=== PATIENT | female | born 1955 | race Two or more races ===

== ENCOUNTER → 2022-01-05 09:50 | Outpatient (BNVA) | payer MEDICARE, MEDICAID, SELFPAY | PROVIDERS: PCP Internal Medicine; Visit Provider Internal Medicine Rheumatology | DX: M79.7 Fibromyalgia (principal); R76.8 Other specified abnormal immunological findings in serum; M17.0 Bilateral primary osteoarthritis of knee; M47.816 Spondylosis without myelopathy or radiculopathy, lumbar region | CPT/HCPCS: 99212 ==

== ENCOUNTER → 2022-02-07 13:04 | Outpatient (BNVA) | payer MEDICARE, MEDICAID, SELFPAY | PROVIDERS: PCP Internal Medicine; Visit Provider Psychiatry & Neurology Neurology | DX: R25.1 Tremor, unspecified (principal); R41.3 Other amnesia; G47.33 Obstructive sleep apnea (adult) (pediatric); Z79.899 Other long term (current) drug therapy | CPT/HCPCS: 99202 ==

== ENCOUNTER 2023-04-17 14:48 | Outpatient (AMB) | payer MEDICARE, MEDICAID, SELFPAY ==
--- NOTE | 2023-04-17 15:17 | MHC.OFFVIS ---
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 Accompanied by: Self / Same As Patient Allergies ampicillin Allergy (Intermediate, Verified 04/17/23 15:30) hives carisoprodol [From Soma] Allergy (Intermediate, Verified 04/17/23 15:30) Hives chlorzoxazone [From Parafon Forte] Allergy (Intermediate, Verified 04/17/23 15:30) Nausea and Vomiting ciprofloxacin [From Cipro] Allergy (Intermediate, Verified 04/17/23 15:30) Rash codeine Allergy (Intermediate, Verified 04/17/23 15:30) Nausea and Vomiting diphenhydramine [From Benadryl] Allergy (Intermediate, Verified 04/17/23 15:30) rash erythromycin base Allergy (Intermediate, Verified 04/17/23 15:30) Nausea and Vomiting fexofenadine [From Katlyn] Allergy (Intermediate, Verified 04/17/23 15:30) Hives penicillin G Allergy (Intermediate, Verified 04/17/23 15:30) Rash ranitidine Allergy (Intermediate, Verified 04/17/23 15:30) Rash Sulfa (Sulfonamide Antibiotics) Allergy (Intermediate, Verified 04/17/23 15:30) hives tetracycline Allergy (Intermediate, Verified 04/17/23 15:30) Hives tolmetin [From Tolectin] Allergy (Intermediate, Verified 04/17/23 15:30) hives Medication List - Last Reconciled 04/17/23 by Norman Gallegos MD azelastine 2 sprays intranasal BID cholecalciferol (vitamin D3) 50 mcg PO DAILY estradiol 0.01%(0.1mg/gram) vaginal fluticasone propionate 50 mcg/actuation (Allergy Relief (fluticasone)) 2 sprays intranasal DAILY uvzltnvkjig-iqskrhasx-hkmvyvkx 100-62.5-25 mcg (Trelegy Ellipta) 1 inh inhalation DAILY gabapentin one tab twice a day and 1 1/2 tab at bedtime orally; hydroxyzine HCl 50 mg PO TID ipratropium-albuterol 20-100 mcg/actuation (Combivent Respimat) 1 puff inhalation Q6H PRN ketoconazole 2% 1 appl topical 2XW lisinopril 5 mg PO DAILY loratadine (Allergy Relief (loratadine)) 10 mg PO DAILY metformin 500 mg PO BID methylphenidate HCl ER (Concerta) 54 mg PO QAM montelukast (Singulair) 10 mg PO BEDTIME omeprazole 20 mg PO DAILY paroxetine HCl (Paxil) 40 mg PO DAILY propranolol 60 mg PO BID simvastatin 40 mg PO DAILY tizanidine 4 mg PO BID trazodone 50 - 150 mg PO BEDTIME PRN HPI HPI Comments History of Present Illness Details The patient returns today for evaluation of her fibromyalgia and osteoarthritis. She remains symptomatic with multiple areas of joint pain. These include the neck, shoulders, lower back (radiating from the buttocks down the legs), the knees, and the feet. She remains on gabapentin 600 mg taking 1 twice a day and 1 and 1/2 at night. She also takes paroxetine, trazodone and tizanidine at night. In spite of that she thinks she needs more pain medicine at night. She does admit to sometimes some sleepiness in the afternoon. There is intermittent swelling in the legs when she has a high salt meal. [facility] Medical History Anxiety Arachnoid cyst Depression Diabetes Lumbar spinal stenosis Neurogenic bladder Obesity (BMI 30-39.9) Obstructive sleep apnea Scoliosis Surgical History H/O laparoscopy Hx of tonsillectomy H/O hernia repair H/O tooth extraction H/O colonoscopy H/O: H/O brain surgery Family History Father Acute arthritis Mother Acute arthritis Brain tumor Vitamin B12 deficiency Father Heart attack Family/Other Brain tumor Cancer Social History Household Members Other:: lives alone Housing: Apartment Do you presently have visiting nurse or other home services: Yes (homemaker) Alcohol intake: never Patient Tobacco Use Status: Never used Tobacco e-Cigarette/Vaping Use: Never Used service: No Current occupational status: disabled Review of Systems Const Details: Low energy. Some weight gain this went summer. Negative for appetite change, fever, chills, malaise Card Details: Occasional ankle edema. Negative palpitations, edema and syncope Resp Details: Negative for SOB, cough and wheezing GI Details: Negative indigestion/heartburn, nausea, abdominal pain, bowel changes, diarrhea, constipation and bloody stool. Neuro Details: Some burning pain and numbness in the feet she attributes to neuropathy. Negative for epilepsy, palsy, stroke, changes in speech, and weakness Endo Details: Negative for polyuria and polydypsia Agusto/Lymph Details: Negative for excessive bruising or bleeding. Physical Exam Vital Signs: Last Vital Signs Temp 97 F 04/17/23 15:26 Pulse 80 04/17/23 15:26 BP 112/70 04/17/23 15:26 Pulse Ox 92 04/17/23 15:26 Oxygen Delivery Method Room Air 04/17/23 15:26 BMI result Body Mass Index 39.3 APPEARANCE: Patient in no acute distress EYES no redness, pupils equal and reactive to light, eyelids normal. No temporal artery tenderness, redness or swelling. EXTREMITIES: Trace pretibial edema with some mild pretibial tenderness. No calf tenderness, normal peripheral pulses. JOINT EXAM: Cervical Spine:.? Full range of motion without pain; mild cervical muscle tenderness. Thoracic Spine:.? No scoliosis.? No tenderness on palpation. Lumbar Spine:.? Alignment normal.? Mild pain with range of motion. Some paraspinal muscle tenderness. Chest Wall:.? No tenderness, swelling, increased warmth or erythema. Hands:.? Normal pain-free range of motion without tenderness, swelling, increased warmth or erythema. 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 Wrists:.? Normal pain-free range of motion with slight dorsal tenderness but no swelling, increased warmth or erythema. Elbows:. Normal pain-free range of motion without tenderness, swelling, increased warmth or erythema. Shoulders:.?? Full range of motion with mild pain at the extremes of motion. Some anterior tenderness but no weakness, swelling, increased warmth or erythema. Hips:? Full range of motion without pain. Hip bursa:.? No tenderness. Knees:.?? Mild pain with range of motion with 45 degrees. There is mild patellofemoral crepitus, medial and lateral tenderness, but no effusion, soft tissue swelling, increased warmth or erythema.? Ankles:.? Normal pain-free range of motion with slight tenderness but no swelling, increased warmth or erythema. Feet:.? Normal pain-free range of motion with mild instep tenderness but no swelling, increased warmth or erythema. Tender points:.? Mild tenderness to digital palpation at the occiput, trapezius, second rib, lateral epicondyle, knees, greater trochanter and gluteal area bilaterally. ?? ? Assessment & Plan Assessment & Plan (1) Osteoarthritis of lumbar spine: Code(s): M47.816 - Spondylosis without myelopathy or radiculopathy, lumbar region (2) Osteoarthritis of knees, bilateral: Code(s): M17.0 - Bilateral primary osteoarthritis of knee (3) Rheumatoid factor positive: Comment: 09/2020: rf=19, anti CCP, ESR normal no synovitis Code(s): R76.8 - Other specified abnormal immunological findings in serum (4) Osteopenia: Comment: osteopenia noted on DEXA 2020 Code(s): M85.80 - Other specified disorders of bone density and structure, unspecified site (5) Menopausal state: Code(s): N95.1 - Menopausal and female climacteric states (6) Fibromyalgia: Code(s): M79.7 - Fibromyalgia Plan Pains are from OA LS spine and knees and the widespread pains of fibro continue. I do not recommend additional meds. She should contiinue with PT. She wants to try a back brace and I think that is reasonable although I cannot say that her insurance would definitely pay for it. I did give her a prescription. A 6 month return is recommended. Will order DEXA to f/u on osteopenia. Orders: Orders XR DEXA axial skeleton 04/17/23 M85.80 - Other specified disorders of bone density and structure, unspecified site, N95.1 - Menopausal and female climacteric states Medications: New back brace use when walking 1 ea 0RF M47.816 - Spondylosis without myelopathy or radiculopathy, lumbar region Coding Level of Care Code Est Pt Level 3 (68295) Diagnoses Osteoarthritis of lumbar spine M47.816 Osteoarthritis of knees, bilateral M17.0 Rheumatoid factor positive R76.8 Osteopenia M85.80 Menopausal state N95.1 Fibromyalgia M79.7
[2023-04-17 15:26] VITALS: BP 112/70; PULSE 80; TEMP 36.1; O2SAT 92; BMI 39.3
== END 2023-04-17 16:11 | disposition home or self-care (01) ==
PROVIDERS: PCP Internal Medicine; Visit Provider Internal Medicine Rheumatology
DX: M47.816 Spondylosis without myelopathy or radiculopathy, lumbar region (principal); M17.0 Bilateral primary osteoarthritis of knee; R76.8 Other specified abnormal immunological findings in serum; M85.80 Other specified disorders of bone density and structure, unspecified site; N95.1 Menopausal and female climacteric states; M79.7 Fibromyalgia
CPT/HCPCS: 99213

== ENCOUNTER → 2023-04-17 14:48 | Outpatient (BNVA) | payer MEDICARE, MEDICAID, SELFPAY | PROVIDERS: PCP Internal Medicine; Visit Provider Internal Medicine Rheumatology | DX: M47.816 Spondylosis without myelopathy or radiculopathy, lumbar region (principal); M17.0 Bilateral primary osteoarthritis of knee; M85.80 Other specified disorders of bone density and structure, unspecified site; N95.1 Menopausal and female climacteric states; M79.7 Fibromyalgia; R76.8 Other specified abnormal immunological findings in serum | CPT/HCPCS: 99212 ==

== ENCOUNTER 2023-11-24 14:03 | Outpatient (AMB) | payer MEDICARE, MEDICAID, SELFPAY ==
--- NOTE | 2023-11-24 14:08 | MHC.OFFVIS ---
Vital Signs 11/24/23 14:17 Height 5 ft 5 in Weight 240 lb 1.334 oz BMI 39.9 BP 140/80 H Blood Pressure Location Rt brachial Position Sitting Pulse 111 H Pulse Oximetry (%) 93 Intake Visit Reasons: fm -oa - pos rf with cnp/cm Intake Note: Patient last seen 04/17/[address] Gallegos, presents today for follow up and test results. Patient c/o rigt knee pain. ? knee fluid Allergies ampicillin Allergy (Intermediate, Verified 11/24/23 14:18) hives carisoprodol [From Soma] Allergy (Intermediate, Verified 11/24/23 14:18) Hives chlorzoxazone [From Parafon Forte] Allergy (Intermediate, Verified 11/24/23 14:18) Nausea and Vomiting ciprofloxacin [From Cipro] Allergy (Intermediate, Verified 11/24/23 14:18) Rash codeine Allergy (Intermediate, Verified 11/24/23 14:18) Nausea and Vomiting diphenhydramine [From Benadryl] Allergy (Intermediate, Verified 11/24/23 14:18) rash erythromycin base Allergy (Intermediate, Verified 11/24/23 14:18) Nausea and Vomiting fexofenadine [From Katlyn] Allergy (Intermediate, Verified 11/24/23 14:18) Hives penicillin G Allergy (Intermediate, Verified 11/24/23 14:18) Rash ranitidine Allergy (Intermediate, Verified 11/24/23 14:18) Rash Sulfa (Sulfonamide Antibiotics) Allergy (Intermediate, Verified 11/24/23 14:18) hives tetracycline Allergy (Intermediate, Verified 11/24/23 14:18) Hives tolmetin [From Tolectin] Allergy (Intermediate, Verified 11/24/23 14:18) hives HPI Comments Details: Ms. Holder 68 yoF returns today for follow-up of her fibromyalgia and osteoarthritis. She remains symptomatic with multiple areas of joint pain. These include the neck, shoulders, lower back (radiating from the buttocks down the legs), the knees, and the feet. She remains on gabapentin 600 mg taking 1 twice a day and 1 and 1/2 at night. She also takes paroxetine, trazodone and tizanidine at night. In spite of that she thinks she needs more pain medicine at night. She does admit to sometimes some sleepiness in the afternoon 04/17/2023 Dr. Gallegos: The patient returns today for evaluation of her fibromyalgia and osteoarthritis. She remains symptomatic with multiple areas of joint pain. These include the neck, shoulders, lower back (radiating from the buttocks down the legs), the knees, and the feet. She remains on gabapentin 600 mg taking 1 twice a day a,nd 1 and 06/27 at night. She also takes paroxetine, trazodone and tizanidine at night. In spite of that she thinks she needs more pain medicine at night. She does admit to sometimes some sleepiness in the afternoon. There is intermittent swelling in the legs when she has a high salt meal. [facility] Medical History Anxiety Arachnoid cyst Depression Diabetes Lumbar spinal stenosis Neurogenic bladder Obesity (BMI 30-39.9) Obstructive sleep apnea Scoliosis Surgical History H/O laparoscopy Hx of tonsillectomy H/O hernia repair H/O tooth extraction H/O colonoscopy H/O: H/O brain surgery Family History Father Acute arthritis Mother Acute arthritis Brain tumor Vitamin B12 deficiency Father Heart attack Family/Other Brain tumor Cancer Social History Household Members Other:: lives alone Housing: Apartment Do you presently have visiting nurse or other home services: Yes (homemaker) Alcohol intake: never Patient Tobacco Use Status: Never used Tobacco e-Cigarette/Vaping Use: Never Used service: No Current occupational status: disabled Review of Systems Const All systems reviewed & are unremarkable except as noted in HPI and below Physical Exam Vital Signs: Last Vital Signs Pulse 111 H 11/24/23 14:17 BP 140/80 H 11/24/23 14:17 Pulse Ox 93 11/24/23 14:17 BMI result Body Mass Index 39.9 APPEARANCE: Patient in no acute distress EYES no redness, No temporal artery tenderness, redness or swelling. HEART:? Regular rhythm, S1-S2 heard, no murmurs, rubs or gallops. LUNG:? Clear to percussion and auscultation EXTREMITIES: Trace pretibial edema with some mild pretibial tenderness. No calf tenderness, normal peripheral pulses. JOINT EXAM: Cervical Spine:.? Full range of motion without pain; mild cervical muscle tenderness. Thoracic Spine:.? No scoliosis.? No tenderness on palpation. Lumbar Spine:.? Alignment normal.? Mild pain with range of motion. Some paraspinal muscle tenderness. Chest Wall:.? No tenderness, swelling, increased warmth or erythema. Hands:.? Normal pain-free range of motion without tenderness, swelling, increased warmth or erythema. 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 Wrists:.? Normal pain-free range of motion with slight dorsal tenderness but no swelling, increased warmth or erythema. Elbows:. Normal pain-free range of motion without tenderness, swelling, increased warmth or erythema. Shoulders:.?? Full range of motion with mild pain at the extremes of motion. Some anterior tenderness but no weakness, swelling, increased warmth or erythema. Hips:? Full range of motion without pain. Hip bursa:.? No tenderness. Knees:.?? Mild pain with range of motion with 45 degrees. There is mild patellofemoral crepitus, medial and lateral tenderness, but no effusion, soft tissue swelling, increased warmth or erythema.? Ankles:.? Normal pain-free range of motion with slight tenderness but no swelling, increased warmth or erythema. Feet:.? Normal pain-free range of motion with mild instep tenderness but no swelling, increased warmth or erythema. Tender points:.? Mild tenderness to digital palpation at the occiput, trapezius, second rib, lateral epicondyle, knees, greater trochanter and gluteal area bilaterally. ?? ? Assessment & Plan Assessment & Plan (1) Osteoarthritis of lumbar spine: Code(s): M47.816 - Spondylosis without myelopathy or radiculopathy, lumbar region Category: Medical Qualifiers: Spinal osteoarthritis complication: other spinal osteoarthritis Qualified Code(s): M47.896 - Other spondylosis, lumbar region (2) Osteoarthritis of knees, bilateral: Code(s): M17.0 - Bilateral primary osteoarthritis of knee Category: Medical Qualifiers: Osteoarthritis type: primary Qualified Code(s): M17.0 - Bilateral primary osteoarthritis of knee (3) Rheumatoid factor positive: Comment: 09/2020: rf=19, anti CCP, ESR normal no synovitis Code(s): R76.8 - Other specified abnormal immunological findings in serum Category: Medical (4) Fibromyalgia: Code(s): M79.7 - Fibromyalgia Category: Medical Plan #FM: Pains are from OA LS spine and knees and the widespread pains of fibro continue. I do not recommend additional meds. She wants to try a back brace and I give her another prescription as she does not remember getting a prior. Patient had inquired about increasing AURORA. I think at this time her dose is adequate. I spent 30 minutes reviewing history, evaluating patient and documenting. RTC 6 month Medications: Refilled back brace use when walking 1 ea 0RF M47.816 - Spondylosis without myelopathy or radiculopathy, lumbar region Coding Level of Care Code Est Pt Level 3 (47799) Diagnoses Other osteoarthritis of spine, lumbar region M47.896 Spinal osteoarthritis complication: other spinal osteoarthritis Primary osteoarthritis of both knees M17.0 Osteoarthritis type: primary Rheumatoid factor positive R76.8 Fibromyalgia M79.7
[2023-11-24 14:17] VITALS: BP 140/80; PULSE 111; O2SAT 93; BMI 39.9
== END 2023-11-24 14:59 | disposition home or self-care (01) ==
LOC: HO.RHE 14:03
PROVIDERS: PCP Internal Medicine; Visit Provider Nurse Practitioner Family
DX: M47.896 Other spondylosis, lumbar region (principal); M17.0 Bilateral primary osteoarthritis of knee; R76.8 Other specified abnormal immunological findings in serum; M79.7 Fibromyalgia
CPT/HCPCS: 99213

== ENCOUNTER → 2023-11-24 14:03 | Outpatient (BNVA) | payer MEDICARE, MEDICAID, SELFPAY | PROVIDERS: PCP Internal Medicine; Visit Provider Nurse Practitioner Family | DX: M47.896 Other spondylosis, lumbar region (principal); M17.0 Bilateral primary osteoarthritis of knee; M79.7 Fibromyalgia; R76.8 Other specified abnormal immunological findings in serum | CPT/HCPCS: 99212 ==

== ENCOUNTER 2024-11-15 13:57 | Outpatient (AMB) | payer MEDICARE, MEDICAID, SELFPAY ==
--- OUTSIDE RECORDS SUMMARY | 2024-11-15 14:00 | XMS_ITS | Clinical Summary ---
Author Organization [address] Address [address] [place] [id number] Phone Care Team Providers Care Enrobing Machine Operator Name Role Phone Cahto Romero MD Primary Care Provider [phone] Allergies Active Allergy Reactions Criticality Noted Date Comments Carisoprodol Hives 07/12/2016 Chlorzoxazone Hives 02/20/2006 Ciprofloxacin Hives 02/20/2006 Codeine Nausea And Vomiting 02/20/2006 Diphenhydramine Hcl Rash 01/12/2011 Erythromycin Hives 02/20/2006 Fexofenadine Hives 02/18/2011 Penicillins Hives 02/20/2006 Ranitidine Hcl 12/22/2006 hives Sulfa (Sulfonamide Antibiotics) Hives 01/25 Tetracycline Hives 02/20/2006 Tolmetin Sodium Hives 02/20/2006 Medications ketoconazole (NIZORAL) 2 % shampoo APPLY TOPICALLY TO THE AFFECTED AREA 2 TIMES A WEEK 120 mL 05/03/20 24 Active azelastine (ASTELIN) 137 mcg (0.1 %) nasal spray 2 Sprays by Each Nare route 2 times daily. Use in each nostril as directed 01/10/20 24 Active traZODone (DESYREL) 50 mg tablet Take 1 tablet by mouth at bedtime. 10/09/19 21 Active meclizine (ANTIVERT) 25 mg tablet TAKE 1 TABLET BY MOUTH THREE TIMES DAILY NEEDED FOR DIZZINESS 04/23/20 24 Active FreeStyle Lancets 28 gauge lancets USE DIRECTED TO TEST BLOOD GLUCOSE ONCE DAILY 02/21/20 24 Active hydrOXYzine HCL (ATARAX) 25 mg tablet TAKE 1 TABLET BY MOUTH EVERY 8 HOURS NEEDED FOR ITCHING 09/22/19 21 Active fluticasone-um eclidinium-gaye anterol (Trelegy Ellipta) 100-62.5-25 mcg inhaler Inhale 1 Puff into the lungs daily. 01/10/20 24 Active estradioL (ESTRACE) 0.01 % (0.1 mg/gram) vaginal cream USE 1 GRAM VAGINALLY THREE TIMES PER WEEK 01/17/20 22 Active blood glucose control high,low (FreeStyle Control) solution Use as directed 10/21/19 18 Active FREESTYLE LANCETS MISC USE ONCE DAILY TO TEST BLOOD SUGAR 09/06/19 24 Active blood-glucose meter misc Use to test BS once daily 09/06/19 24 Active nystatin (MYCOSTATIN) 100,000 unit/gram powder Apply topically. APPLY TOPICALLY TO AFFECTED AREA TWICE DAILY NEEDED Active ipratropium-al buteroL (COMBIVENT RESPIMAT) 20-100 mcg/actuation inhaler Inhale by mouth. Inhale 1 Puff into the lungs 4 times daily. - Inhalation Active PARoxetine (PAXIL) 40 mg tablet Take by mouth. Take 1 Tablet by mouth every morning. - Oral Active methylphenidat e 54 mg 24 hr tablet Take by mouth. TAKE 1 TABLET BY MOUTH EVERY MORNING Active inhaler,assist device,accesor y (INHALER,EMA T DEVICES,ACCESS MISC) Active incontinence pad, liner, disp (Poise Pantiliners) pad Use daily for Incontinence Active metFORMIN (GLUCOPHAGE) 500 mg tablet TAKE 1 TABLET BY MOUTH TWICE DAILY WITH MEALS 60 tablet 07/08/19 25 Active gabapentin (NEURONTIN) 600 mg tablet Take 1 tab in the morning, 1 tab in the afternoon, and 1.5 tab at bedtime 105 tablet 07/18/19 25 Active albuterol 2.5 mg /3 mL (0.083 %) nebulizer solutionIndica tions:COPD with asthma (CMS/HCC V24, CMS/HCC V28) Take 3 mL (2.5 mg total) by nebulization every 4 (four) hours if needed for wheezing. USE 1 VIAL VIA NEBULIZER EVERY 4 HOURS NEEDED FOR WHEEZING 375 mL 07/18/19 25 Active blood sugar diagnostic (FreeStyle Lite Strips) test strip USE DIRECTED TO TEST BLOOD GLUCOSE ONCE DAILY 100 strip 1 07/26/19 25 Active loratadine (CLARITIN) 10 mg tablet TAKE 1 TABLET BY MOUTH EVERY DAY NEEDED FOR ALLERGIES 90 tablet 1 08/02/19 25 Active diclofenac (VOLTAREN) 1 % topical gel Apply 4 g topically 4 (four) times a day. APPLY 4 GRAMS TOPICALLY TO THE AFFECTED AREA FOUR TIMES DAILY 100 g 1 07/31/19 25 Active lisinopriL (PRINIVIL,ZEST RIL) 5 mg tablet TAKE 1 TABLET BY MOUTH DAILY 90 tablet 1 09/07/19 25 Active propranoloL (INDERAL) 60 mg tablet TAKE 1 TABLET BY MOUTH TWICE DAILY 180 tablet 1 09/18/19 25 Active ketoconazole (NIZORAL) 2 % shampoo APPLY TOPICALLY TO THE AFFECTED AREA 2 TIMES A WEEK 120 mL 5 09/18/19 25 Active simvastatin (ZOCOR) 40 mg tablet TAKE 1 TABLET BY MOUTH AT BEDTIME 90 tablet 1 09/27/19 25 Active tiZANidine (ZANAFLEX) 4 mg tablet TAKE 1 TABLET(4 MG) BY MOUTH TWICE DAILY WITH MEALS 60 tablet 4 10/01/19 25 Active cholecalcifero l (VITAMIN D-3) 50 mcg (2,000 unit) capsule TAKE 1 CAPSULE BY MOUTH EVERY DAY 90 capsule 1 10/01/19 25 Active fluticasone propionate (FLONASE) 50 mcg/actuation nasal sprayIndicatio ns:Allergic rhinitis, unspecified seasonality, unspecified trigger SHAKE LIQUID AND USE 2 SPRAYS IN EACH NOSTRIL DAILY 48 g 3 09/28/19 25 Active omeprazole (PriLOSEC) [address] capsule TAKE 1 CAPSULE(20 MG) BY MOUTH 1 TIME EACH DAY 90 capsule 1 10/15/19 25 Active montelukast (SINGULAIR) 10 mg tabletIndicati ons:COPD with asthma (CMS/HCC V24, CMS/HCC V28) TAKE 1 TABLET BY MOUTH AT BEDTIME 30 tablet 3 10/26/19 25 Active montelukast (SINGULAIR) 10 mg tablet TAKE 1 TABLET BY MOUTH AT BEDTIME - Oral 025 Discontinued Active Problems Problem Noted Date Diagnosed Date Neurogenic bladder 07/21/2021 Overview (05/21/2024): Due to underlining diabetes. Follows with [facility] urology. UDS significant for incomplete bladder emptying and decreased urine flow. No evidence of bladder hyperactivity. Follows on a 6-month basis. Rheumatoid factor positive 06/03/2021 Overview (05/21/2024): Likely false positive, neg ccp, normal acute phase reactants. Osteoarthritis of both knees 11/14/2020 Thyroid nodule 10/23/2020 Essential hypertension 10/08/2020 Osteopenia 09/18/2020 Overview (05/21/2024): DXA 08/2020: Lumbar spine t score 0.3 Hip -2.0 COPD with asthma ([facility] V24, [facility] V28) 07/27 Obstructive sleep apnea 08/11/2020 Overview (05/21/2024): [facility] Home Sleep Apnea Test: Date 08/03/2020; Wt 223#; BMI 37; YEIMY (AHI) 18, AI 6; HI 12; Unclassified apneas 0; Obstructive apneas 69; Central apneas 0; Mixed apneas 0; hypopneas 142; average oxygen saturation 93% (lowest 86% without saturations <88% for 5% or more of study) - Obstructive Sleep Apnea - moderate; mostly hypopneas with obstructive apneas; without sleep related hypoventilation by 2020 home sleep apnea test. Benign essential tremor 01/29/2019 Chronic pruritus 07/28/2018 Hoarding behavior 10/23/2017 Diabetes mellitus type 2, co ntrolled, without complications [facility] V28) 06/09/2016 Overview (05/21/2024): HA1c of 8.6% at [facility] Apr 2016 Cyst of pituitary gland ([facility] V24) 03/24/2011 Overview (05/21/2024): Surgery 10/22/10. Fenestration of arachnoid cyst by Dr. Bloom Arachnoid cyst 01/12/2011 Overview (05/21/2024): 10/22/[address] Bloom Scoliosis 09/22/2010 Spinal stenosis 09/22/2010 Attention deficit disorder of adult 06/01/2007 Overview (05/21/2024): Sees Dr. Crisostomo Cervical spondylosis without myelopathy 10/31/19 07 Fibromyalgia 04/26/2006 Overview (05/21/2024): IMO update Lumbosacral spondylosis without myelopathy 04/26 Overview (05/21/2024): seen on MRI - 2005 Mixed hyperlipidemia 03/14/2006 Allergic rhinitis 02/20/2006 Anxiety state 02/20/2006 Carpal tunnel syndrome 02/20/2006 Overview (05/21/2024): right and left, some improvement - Depression 02/20/2006 Esophageal reflux 02/20/2006 Encounters Date Type Department Care Team Description 11/11/2024 3:00 PM EDT Treatment [address] [phone] Jac Gifford, PT Bilateral chronic knee pain (Primary Dx) 10/28/2024 3:30 PM EDT Treatment [address] [phone] Jac Gifford, PT Bilateral chronic knee pain (Primary Dx) 10/16/[address] [phone] Chato Romero MD Medication Problem; Fitting for DME (CMN for neb ) 10/03/2024 2:00 PM EDT Evaluation [address] [phone] Shayla Rawls, PT Bilateral chronic knee pain 10/03/2024 Plan of Care Documentation [facility] [address] [phone] 09/16/[address] [phone] Chato Romero MD pt1 from Last 3 Months Immunizations Name Administration Dates Next Due Influenza Quadravalent, 0.5m l (Fluad) 65yo and older 05/30/2022 Influenza Quadravalent, 0.5m l (Fluzone High-dose) 65yo and older 04/16/2023 Influenza trivalent, 0.5mL ( Fluad) 65yo and older 06/03/2021 Pfizer SARS-CoV-2 COVID-19, mRNA, LNP-S, preservative free 06/20/2021,12/17/2020,11/26/2020 Td, Unspecified 11/04/2002 Tdap Tetanus diptheria acell ular pertussis (Boostrix; Adacel) 7yo and older 02/15/2013 Surgical History Surgery Date Site/Laterality Comments OTHER SURGICAL HISTORY PROCEDURE: [place] LAPAROSCOPY W/LYSIS OF ADHESIONS COLONOSCOPY 11/07/06 PROCEDURE: HISTORICAL COLONOSCOPY; COMMENT: hemorrhoids SECTION PROCEDURE: HISTORICAL ; COMMENT: times three TONSILLECTOMY PROCEDURE: HISTORICAL TONSILLECTOMY MULTIPLE TOOTH EXTRACTIONS PROCEDURE: HISTORICAL DENTAL EXTRACTION OTHER SURGICAL HISTORY 2010 PROCEDURE: BRAIN SURGERY USING COMPUTER; COMMENT: Arachnoid cyst removed Medical History Medical History Date Comments Depressive disorder, not els ewhere classified DX:Depressive disorder, not elsewhere classified Other and unspecified ovarian cyst DX:Other and unspecified ovarian cyst Carpal tunnel syndrome 02/20/2006 DX:Carpal tunnel syndrome; COMMENT: right and left, some improvement - Myalgia and myositis, unspecified 04/26/2006 DX:Myalgia and myositis, unspecified Osteoarthrosis, unspecified whether generalized or localized, lower leg 04/26/2006 DX:Osteoarthrosis, unspecified whether generalized or localized, lower leg; COMMENT: mild on xray 2005 Lumbosacral spondylosis with out myelopathy 04/26/2006 DX:Lumbosacral spondylosis w ithout myelopathy; COMMENT: seen on MRI - 2005 Cervical spondylosis without myelopathy 10/30/2006 DX:Cervical spondylosis with out myelopathy Anxiety state, unspecified DX:An xiety state, unspecified Attention deficit disorder of adult 06/01/2007 DX:Attention deficit disorder of adult; COMMENT: Sees Dr. Crisostomo Cyst of pituitary gland ([facility] V24) 03/24/2011 DX:Cyst of pituitary gland ([facility]) Family history of cancer 07/18/2014 DX:Fami ly history of cancer COPD (chronic obstructive pu lmonary disease) ([facility] V24, [facility] V28) DX:COPD (chronic o bstructive pulmonary disease) ([facility]) Thyroid nodule DX:Thyroid nodul e Acute pancreatitis 08/05/2019 DX:Acute panc reatitis; COMMENT: Admitted [facility] 06/29/2019 Essential hypertension 10/08/2020 Family History Medical History Relation Name Comments Other: aneurysm Brother Arthritis Father Heart attack Father age 65 Stroke Maternal Grandmother Arthritis Mother Other: vitamin B12 deficiency Mother Other: brain tumor Sister 1 Other cancer Sister 2 half-sister, ? uterine CA Breast cancer Neg Hx Relation Name Status Comments Brother Father Maternal Grandmother Mother Sister 1 Sister 2 Social History Tobacco Use Types Packs/Day Years Used Date Smoking Tobacco: Never Smokeless Tobacco: Never Tobacco Cessation:Counseling Given: Not Answered Alcohol Use Standard Drinks/Week Comments No 0 (1 standard drink = 0.6 oz pur e alcohol) Comments Unknown Sex and Gender Information Value Date Recorded Sex Assigned at Not on file Legal Sex Female 9:30 PM EST Gender Identity Not on file Sexual Orientation Not on file Obstetrics History Last Filed Vital Signs Vital Sign Reading Time Taken Comments Blood Pressure 126/86 01/10/2024 9:48 AM EDT Pulse 78 01/10/2024 9:48 AM EDT Temperature 36.6 ??C (97.9 ??F) 07/31/2024 3:29 PM ES T Respiratory Rate 16 07/31/2024 3:29 PM EST Oxygen Saturation - - Inhaled Oxygen Concentration - - Weight 108 kg (237 lb) 07/31/2024 3:29 PM EST Height 165.1 cm (5' 5 ) 07/31/2024 3:29 PM EST Body Mass Index 39.44 07/31/2024 3:29 PM EST Plan of Treatment Upcoming Encounters Date Type Department Care Team (Late st Contact Info) Description 12/04/2024 3:30 PM EDT Treatment [facility] [address] [phone] Jac Gifford, PT 12/12/2024 2:00 PM EDT Treatment [facility] [address] [phone] Jac Gifford, PT 12/19/2024 2:30 PM EDT Treatment [address] [phone] Desmond Garcia, SOFTWARE SUPPORT TECHNICIAN 02/03/2025 3:45 PM EDT Office Visit Adult Medicine [address] [phone] Chato Romero MD [address] [place] [address] 04/04/2025 1:30 PM EDT Appointment Radiology Department - [address] [phone] Health Maintenance Due Date Last Done Comments Pneumococcal Vaccine: 50+ Years (1 of 2 - PCV) 1974 Zoster Vaccines (1 of 2) 2005 RSV Immunization Adult Patients (1 - Risk 60-74 years 1-dose series) 2015 Colorectal Cancer Screening: FIT-DNA (Cologuard) 06/04/2022 Social Influencers of Health Screening 06/04/2022 DTaP,Tdap,and Td Vaccines (3 - Td or Tdap) 02/15/2023 02/15/2013, 11/04/2002 COVID-19 Vaccine ( - season) 2024 06/20/2021, 12/17/2020, 11/26/2020 Diabetes: Blood Sugar Control Test (HGBA1C) 07/04/2024 01/02/2024, 01/02/2024 Falls Risk Assessment 07/20/2024 07/20/2023 Depression Screening 12/28/2024 12/29/2023 Medicare Annual Wellness Visit 12/28/2024 12/29/2023 Diabetes: Annual Urine Albumin-Creatinine Ratio (uACR) 01/01/2025 01/02/2024 Diabetes: Annual GFR (Glomerular Filtration Rate) 01/01/2025 01/02/2024, 01/02/2024 Hypertension/CHF/CAD Annual BMP Blood Test 01/01/2025 01/02/2024, 01/02/2024 Diabetes: Annual Foot Exam 01/23/2025 01/24/2024 Diabetes: Annual Retina Eye Exam 01/23/2025 01/24/2024 Breast Cancer Screening 03/21/2026 03/21/20, 03/21/2024, 10/08/2020 Cholesterol Screening (Lipid Panel) 01/01/2029 01/02/2024, 01/02/2024 Osteoporosis Screening (Bone Density Screening) 09/16/2030 09/16/2020 Hepatitis C Screening Completed 01/08/2019 Colorectal Cancer Screening: Colonoscopy Discontinued 08/22/2023 Influenza Vaccine Completed 07/21/2024, , 05/30/2022, Additional history exists HIB Vaccines Aged Out No longer eligi ble based on patient's age to complete this topic HPV Vaccines Aged Out No longer eligi ble based on patient's age to complete this topic Hepatitis A Vaccines Aged Out No long er eligible based on patient's age to complete this topic Hepatitis B Vaccines Aged Out No long er eligible based on patient's age to complete this topic IPV Vaccines Aged Out No longer eligi ble based on patient's age to complete this topic MMR Vaccines Aged Out No longer eligi ble based on patient's age to complete this topic Meningococcal ACWY Vaccine Aged Out N o longer eligible based on patient's age to complete this topic Meningococcal B Vaccine Aged Out No l onger eligible based on patient's age to complete this topic RSV Immunization Patients Under 20 months Aged Out No longer eligible based on patient's age to complete this topic Varicella Vaccines Aged Out No longer eligible based on patient's age to complete this topic Procedures Procedure Name Priority Date/Time Associated Diagnosis Comments SCREENING MAMMOGRAPHY BI 2-VIEW BREAST INC CAD Routine 03/21/2024 10:54 AM EDT Encounter for other screening for malignant neoplasm of breast DIABETES EYE EXAM Routine 01/24/2024 DIABETES FOOT EXAM Routine 01/24/2024 URINE ALBUMIN CREATININE RATIO Routine 01/02/2024 ANNUAL BMP BLOOD TEST Routine 01/02/2024 HEMOGLOBIN A1C Routine 01/02/2024 LIPID PANEL Routine 01/02/2024 DEPRESSION SCREENING Routine 12/29/2023 COLONOSCOPY Routine 08/22/2023 FALLS RISK ASSESSMENT Routine 07/20/2023 DXA BONE DENSITY STUDY 1+ SITS AXIAL SKEL Routine 09/16/2020 3:18 PM EDT Unspecified menopausal and perimenopausal disorder HEPATITIS C SCREENING Routine 01/08/2019 from Last 3 Months or Most Recently Relevant to Health Maintenance Results * SCREENING MAMMOGRAPHY BI 2-VIEW BREAST INC CAD (03/21/2024 10:54 AM EDT) Anatomical Region Laterality Modality Radiographic Alia ging 03/21/2024 10:2 0 AM EDT Narrative 03/21/2024 6:03 PM EDT This is a summary report. The complete report is available in the patient's medical record. If you cannot access the medical record, please contact the sending organization for a detailed fax or copy. Exam: Screening mammogram Findings: Digital bilateral full-field screening mammography is performed with tomosynthesis and interpreted with the aid of computer-aided detection. ??Comparison is made with 10/08/2020. ??Images are limited due to patient body habitus and difficulty holding position for imaging. ??Images obtained are the best possible. Breast parenchyma is predominantly fatty replaced. ??No new suspicious mass, architectural distortion, or suspicious calcifications. Impression: No mammographic evidence of malignancy. BI-RADS 1 - negative [address] [id number] Procedure Note Lucinda Carroll MD - 04/10/2024 This is a summary report. The complete report is available in thepatient's medical record. If you cannot access the medical record, pleasecontact the sending organization for a detailed fax or copy. Exam: Screening mammogram Findings: Digital bilateral full-field screening mammography is performedwith tomosynthesis and interpreted with the aid of computer-aideddetection. Comparison is made with 10/08/2020. Images are limited due topatient body habitus and difficulty holding position for imaging. Imagesobtained are the best possible. Breast parenchyma is predominantly fatty replaced. No new suspiciousmass, architectural distortion, or suspicious calcifications. Impression: No mammographic evidence of malignancy. BI-RADS 1 - negative [address] [id number] Result [facility] Chato Romero MD IMG XR PROCEDURES Final Result * Diabetes Foot Exam (01/24/2024) [facility] Diabetes: Annual Foot Exam Abstracted Result [facility] HEALTH MAINTENANCE Final Result * Diabetes Eye Exam (01/24/2024) [facility] Diabetes: Annual Retina Eye Exam Abstracted Result [facility] HEALTH MAINTENANCE Final Result * Urine Albumin Creatinine Ratio (01/02/2024) [facility] Urine Albumin Creatinine Ratio Abstracted Result [facility] HEALTH MAINTENANCE Final Result * Annual BMP Blood Test (01/02/2024) [facility] Annual BMP Blood Test Abstracted Result [facility] HEALTH MAINTENANCE Final Result * (ABNORMAL) Hemoglobin A1c (01/02/2024) [facility] Hemoglobin A1C 5.9(A) >=6.5 % Blood Venous blood specimen / Unknown Result [facility] Provider MD LAB BLOOD ORDERABLES Steph l Result * (ABNORMAL) Lipid panel (01/02/2024) [facility] LDL/HDL Ratio 3 0 - 4 Triglycerides 235(A) 0 - 150 mg/dL Cholesterol 212(A) 0 - 200 mg/dL HDL 65 >=40 mg/dL LDL Cholesterol 100 0 - 100 mg/dL Blood Venous blood specimen / Unknown Result [facility] Provider MD LAB BLOOD ORDERABLES Steph l Result * Depression Screening (12/29/2023) [facility] Depression Screening Abstracted Result [facility] Provider MD HEALTH MAINTENANCE Final Result * Colonoscopy (08/22/2023) [facility] Colonoscopy No interpreta tion,abstr acted Anatomical Region Laterality Modality Other [facility] Provider MD HEALTH MAINTENANCE Final Result * Falls Risk Assessment (07/20/2023) [facility] Falls Risk Assessment Abstracted Result [facility] Provider MD HEALTH MAINTENANCE Final Result * DXA BONE DENSITY STUDY 1+ SITS AXIAL SKEL (09/16/2020 3:18 PM EDT) Anatomical Region Laterality Modality Bone Densitometr y 03/18/2020 12:0 4 PM EDT Narrative 09/16/2020 3:37 PM EDT BONE DENSITY (DEXA) ? Lumbar Spine T-score is 0.3. ?? (SD relative to 20-29 y/o adult) Z-score is 2.1. ??(SD relative to age matched peers) This is considered normal by WHO criteria. Left Hip T-score is -2.0. Z-score is -0.5. This is considered osteopenia by WHO criteria. IMPRESSION: This patient is considered to have osteopenia by WHO criteria. This patient has a 26% risk of major osteoporotic fracture and a 2.6% risk of hip fracture over the next 10 years. (World Health Organization Fracture Risk Assessment) [facility] Department of Internal Medicine recommends using National Osteoporosis Foundation (NOF) guidelines in treatment decisions related to osteoporosis. NOF guidelines suggest considering treatment for postmenopausal women and men aged 50 or older presenting with the following: History of hip or vertebral fracture. T-score = -2.5 (DXA) at the femoral neck, total hip, or spine, after appropriate evaluation to exclude secondary causes. Low bone mass (T-score between -1.0 and -2.5 at the femoral neck or spine) AND a 10-year probability of a hip fracture = 3% OR a 10-year probability of a major osteoporosis-related fracture = 20% based on the [place]-adapted WHO algorithm Please note that all treatment decisions require clinical judgment and consideration of individual patient factors, including patient preferences, co-morbidities, previous drug use, risk factors not captured in the FRAX model (e.g., frailty, falls, vitamin D deficiency, increased bone turnover, interval significant decline in bone density) and possible under- or over-estimation of fracture risk by FRAX. Optional alternative screening schedule based on arjun Espinal., [facility] July 14, 2011 for patients with osteopenia (based on hip BMD T-score) is as follows: * ??advanced osteopenia (T scores -2.00 to -2.49), BMD testing every year * ??moderate osteopenia (T scores -1.50 to -1.99), BMD testing every 5 years mild osteopenia or normal BMD (T scores -1.50 and higher), BMD testing every 15 years Procedure Note Leana Oliveira MD - 06/14/2022 BONE DENSITY (DEXA) Lumbar Spine T-score is 0.3. (SD relative to 20-29 y/o adult) Z-score is 2.1. (SD relative to age matched peers) This is considered normal by WHO criteria. Left Hip T-score is -2.0. Z-score is -0.5. This is considered osteopenia by WHO criteria. IMPRESSION: This patient is considered to have osteopenia by WHO criteria. Thispatient has a 26% risk of major osteoporotic fracture and a 2.6% risk of hip fracture over the next10 years. (World Health Organization Fracture Risk Assessment) [facility] Department of Internal Medicine recommendsusing National Osteoporosis Foundation (NOF) guidelines in treatment decisions related toosteoporosis. NOF guidelines suggest considering treatment for postmenopausal women and menaged 50 or older presenting with the following: History of hip or vertebral fracture. T-score = -2.5 (DXA) at the femoral neck, total hip, or spine, afterappropriate evaluation to exclude secondary causes. Low bone mass (T-score between -1.0 and -2.5 at the femoral neck or spine)AND a 10-year probability of a hip fracture = 3% OR a 10-year probability of a majorosteoporosis-related fracture = 20% based on the [place]-adapted WHO algorithm Please note that all treatment decisions require clinical judgment andconsideration of individual patient factors, including patient preferences, co- morbidities,previous drug use, risk factors not captured in the FRAX model (e.g., frailty, falls, vitaminD deficiency, increased bone turnover, interval significant decline in bone density) andpossible under- or over-estimation of fracture risk by FRAX. Optional alternative screening schedule based on arjun Espinal., NEJMJanuary 2011 for patients with osteopenia (based on hip BMD T-score) is as follows: * advanced osteopenia (T scores -2.00 to -2.49), BMD testing every year * moderate osteopenia (T scores -1.50 to -1.99), BMD testing every 5years mild osteopenia or normal BMD (T scores -1.50 and higher), BMD testingevery 15 years Jessi LINDQUIST DXA PROCEDURES Final Result * Hepatitis C Screening (01/08/2019) [facility] Hepatitis C Screening Abstracted Historical Provider MD HEALTH MAINTENANCE Final Result from Last 3 Months or Most Recently Relevant to Health Maintenance Insurance MEDICARE [place]ICA[place] - [place] Care Teams Enrobing Machine Operator Relationship Specialty Start Date End Date Chato Romero MD [address] [place] [address] [id number] PCP - General Internal Medicine 04/13/21
--- NOTE | 2024-11-15 14:05 | MHC.OFFVIS ---
Vital Signs 11/15/24 14:11 Height 5 ft 5 in Weight 239 lb 6.752 oz BMI 39.8 BP 140/72 H Blood Pressure Location Lt brachial Position Sitting Pulse 88 Pulse Source Pulse Oximeter Pulse Oximetry (%) 92 Oxygen Delivery Method Room Air Intake Visit Reasons: FM/OA Intake Note: Patient presents for FM/OA follow up. Allergies ampicillin Allergy (Intermediate, Verified 11/15/24 14:10) hives carisoprodol [From Soma] Allergy (Intermediate, Verified 11/15/24 14:10) Hives chlorzoxazone [From Parafon Forte] Allergy (Intermediate, Verified 11/15/24 14:10) Nausea and Vomiting ciprofloxacin [From Cipro] Allergy (Intermediate, Verified 11/15/24 14:10) Rash codeine Allergy (Intermediate, Verified 11/15/24 14:10) Nausea and Vomiting diphenhydramine [From Benadryl] Allergy (Intermediate, Verified 11/15/24 14:10) rash erythromycin base Allergy (Intermediate, Verified 11/15/24 14:10) Nausea and Vomiting fexofenadine [From Katlyn] Allergy (Intermediate, Verified 11/15/24 14:10) Hives penicillin G Allergy (Intermediate, Verified 11/15/24 14:10) Rash ranitidine Allergy (Intermediate, Verified 11/15/24 14:10) Rash Sulfa (Sulfonamide Antibiotics) Allergy (Intermediate, Verified 11/15/24 14:10) hives tetracycline Allergy (Intermediate, Verified 11/15/24 14:10) Hives tolmetin [From Tolectin] Allergy (Intermediate, Verified 11/15/24 14:10) hives Medication List - Last Reconciled 11/15/24 by Eloina Cordon MD azelastine 2 sprays intranasal BID back brace use when walking cholecalciferol (vitamin D3) 50 mcg PO DAILY diclofenac sodium 1% 4 grams topical QID estradiol 0.01%(0.1mg/gram) vaginal fluticasone propionate 50 mcg/actuation (Allergy Relief (fluticasone)) 2 sprays intranasal DAILY bhhpispvtpw-wzpctfhtg-rplppjgd 100-62.5-25 mcg (Trelegy Ellipta) 1 inh inhalation DAILY gabapentin 600 mg PO BID hydroxyzine HCl 50 mg PO TID ipratropium-albuterol 20-100 mcg/actuation (Combivent Respimat) 1 puff inhalation Q6H PRN ketoconazole 2% 1 appl topical 2XW lisinopril 5 mg PO DAILY loratadine (Allergy Relief (loratadine)) 10 mg PO DAILY meclizine 25 mg PO TID PRN metformin 500 mg PO BID methylphenidate HCl ER (Concerta) 54 mg PO QAM montelukast (Singulair) 10 mg PO BEDTIME omeprazole 20 mg PO DAILY paroxetine HCl (Paxil) 40 mg PO DAILY propranolol 60 mg PO BID simvastatin 40 mg PO DAILY tizanidine 4 mg PO BID 90 days trazodone 50 - 150 mg PO BEDTIME PRN HPI Comments Details: Patient is a 69-year-old female with diabetes, anxiety/depression, VANESSA, COPD, hypertension, polyarticular osteoarthritis and fibromyalgia here today for follow up Interval History: Patient last seen 11/24/2023 with Whit Schroeder. At that time she was following up for fibromyalgia and osteoarthritis. She remained symptomatic with multiple areas of joint pain including neck, shoulders, lower back, knees and feet. She was on gabapentin, paroxetine, trazodone and tizanidine. Today she continues to complain of polyarticular OA Rheumatologic History: Fibromyalgia and osteoarthritis Current Rheumatology Medication(s): Gabapentin 600 mg twice a day, 900mg at night Trazodone 50-150mg at night Tizanidine 4 mg twice a day PFS Medical History Anxiety Arachnoid cyst Depression Diabetes Lumbar spinal stenosis Neurogenic bladder Obesity (BMI 30-39.9) Obstructive sleep apnea Scoliosis Surgical History H/O laparoscopy Hx of tonsillectomy H/O hernia repair H/O tooth extraction H/O colonoscopy H/O: H/O brain surgery Family History Father Acute arthritis Mother Acute arthritis Brain tumor Vitamin B12 deficiency Father Heart attack Family/Other Brain tumor Cancer Social History Household Members Other:: lives alone Housing: Apartment Do you presently have visiting nurse or other home services: Yes (homemaker) Alcohol intake: never Patient Tobacco Use Status: Never used Tobacco e-Cigarette/Vaping Use: Never Used service: No Current occupational status: disabled Review of Systems Const Details: Review of Systems Constitutional: Denies fever, chills, weight loss ENT: Denies vision changes, eye pain or eye redness, dental caries, dry mouth GI: Denies nausea, vomiting, diarrhea, abdominal pain, change in BM Pulm: Denies SOB, MCCAIN, hemoptysis, wheezing Cards: Denies chest pain, palpitations Skin: Denies Raynaud's, rash, nail changes, photosensitivity, 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 Well appearing and in no apparent painful distress HEENT Conjunctiva and sclera clear. ?Pupils equal round and reactive to light. ?No lymphadenopathy. ? CHEST/RESPIRATORY SYSTEM Normal respiratory effort and able to speak in complete sentences. ?Clear to auscultation bilaterally. ?No crackles, rales, rhonchi, wheezes heard. CARDIAC SYSTEM Regular rate and rhythm. ?S1 and S2 heard no murmurs. ?Radial pulses intact bilaterally MSK Hands: ?Able to make a fist. No synovitis noted to the MCPs, PIPs or DIPs. ?No tenderness to palpation of these joints. No deformities noted. ? Wrists: ?Full range of motion at the wrists without pain. ?No tenderness to palpation or synovitis noted to the wrists. Elbows: Full range of motion without pain. No tenderness, weakness, swelling, increased warmth or erythema. Shoulders: Full range of active range of motion without pain. No tenderness, weakness, swelling, increased warmth or erythema. Knees: ?Full range of motion. ?No tenderness, swelling, increased warmth or erythema.?Crepitations felt bilaterally. Bilateral thigh muscles are tight Ankles: Full range of motion. ?No tenderness, swelling, increased warmth or erythema.?ankle edema 2+ Feet: ?Negative squeeze test. ?No tenderness to palpation or swelling of the MTPs. Tender points:?Tnderness to palpation of the bilateral trapezius, supraspinatus, greater trochanters, anterior costochondral junctions, bilateral gluteal areas, bilateral suboccipital muscle insertions SKIN Skin intact without rashes. Results Reviewed Results Reviewed: No labs to review Assessment & Plan Assessment & Plan (1) Fibromyalgia: Code(s): M79.7 - Fibromyalgia Category: Medical Plan: #Fibromyalgia Patient is a 69-year-old female with fibromyalgia complicated by polyarticular osteoarthritis here today for follow up. Discussed with patient be non pharmacological management of fibromyalgia including stretches, low-impact exercises and dietary changes. We will continue her current medication regimen. Plan - Gabapentin 600mg bid and 900mg at night - Tizanidine 4mg bid - Encouraged light exercises and stretches - RTC 1 year (2) Polyarticular osteoarthritis: Code(s): M15.9 - Polyosteoarthritis, unspecified Plan: #Polyarticular OA Patient with polyarticular OA, currently stable Plan I spent 20 minutes reviewing the record and labs, taking a history, examining the patient, discussing the treatment plan, ordering diagnostic work up and documenting in the medical record Medications: Changed From tizanidine 4 mg PO BID M79.7 - Fibromyalgia To tizanidine 4 mg PO BID 90 days 180 tabs 1RF M79.7 - Fibromyalgia Refilled gabapentin 600 mg PO BID 180 tabs 1RF M79.7 - Fibromyalgia Coding Level of Care Code Est Pt Level 3 (92662) Diagnoses Fibromyalgia M79.7 Polyarticular osteoarthritis M15.9
[2024-11-15 14:11] VITALS: BP 140/72; PULSE 88; O2SAT 92; BMI 39.8
== END 2024-11-15 14:53 | disposition home or self-care (01) ==
LOC: HO.RHE 13:58
PROVIDERS: PCP Internal Medicine; Visit Provider Student in an Organized Health Care Education/Training Program
DX: M79.7 Fibromyalgia (principal); M15.9 Polyosteoarthritis, unspecified
CPT/HCPCS: 99213

== ENCOUNTER → 2024-11-15 13:57 | Outpatient (BNVA) | payer MEDICARE, MEDICAID, SELFPAY | PROVIDERS: PCP Internal Medicine; Visit Provider Student in an Organized Health Care Education/Training Program | DX: M79.7 Fibromyalgia (principal); M15.9 Polyosteoarthritis, unspecified | CPT/HCPCS: 99212 ==

== ENCOUNTER 2025-01-21 12:47 | Outpatient (AMB) | payer MEDICARE, MEDICAID, SELFPAY ==
[2025-01-21 13:14] VITALS: BP 104/72; PULSE 82; O2SAT 93; BMI 39.8
--- NOTE | 2025-01-21 13:14 | A.OFFVIS_ITS ---
Vital Signs 01/21/25 13:14 Height 5 ft 5 in Weight 239 lb 6 oz BMI 39.8 BP 104/72 Blood Pressure Location Rt brachial Position Sitting Pulse 82 Pulse Source Pulse Oximeter Pulse Oximetry (%) 93 Oxygen Delivery Method Room Air Intake Visit Reasons: Follow up [employer] Required: No Accompanied by: Self / Same As Patient Allergies ampicillin Allergy (Intermediate, Verified 12/26/24 14:08) hives carisoprodol (From Soma) Allergy (Intermediate, Verified 12/26/24 14:08) Hives chlorzoxazone (From Parafon Forte) Allergy (Intermediate, Verified 12/26/24 14:08) Nausea and Vomiting ciprofloxacin (From Cipro) Allergy (Intermediate, Verified 12/26/24 14:08) Rash codeine Allergy (Intermediate, Verified 12/26/24 14:08) Nausea and Vomiting diphenhydramine (From Benadryl) Allergy (Intermediate, Verified 12/26/24 14:08) rash erythromycin base Allergy (Intermediate, Verified 12/26/24 14:08) Nausea and Vomiting fexofenadine (From Katlyn) Allergy (Intermediate, Verified 12/26/24 14:08) Hives penicillin G Allergy (Intermediate, Verified 12/26/24 14:08) Rash ranitidine Allergy (Intermediate, Verified 12/26/24 14:08) Rash Sulfa (Sulfonamide Antibiotics) Allergy (Intermediate, Verified 12/26/24 14:08) hives tetracycline Allergy (Intermediate, Verified 12/26/24 14:08) Hives tolmetin (From Tolectin) Allergy (Intermediate, Verified 12/26/24 14:08) hives [facility] Medical History Diabetes Anxiety Depression Obstructive sleep apnea Scoliosis Obesity (BMI 30-39.9) Lumbar spinal stenosis Neurogenic bladder Arachnoid cyst Surgical History H/O laparoscopy Hx of tonsillectomy H/O hernia repair H/O tooth extraction H/O colonoscopy H/O: H/O brain surgery Family History Father Acute arthritis Mother Acute arthritis Brain tumor Vitamin B12 deficiency Father Heart attack Family/Other Brain tumor Cancer Social History Household Members Other:: lives alone Housing: Apartment Do you presently have visiting nurse or other home services: Yes (homemaker) Alcohol intake: never Patient Tobacco Use Status: Never used Tobacco e-Cigarette/Vaping Use: Never Used service: No Current occupational status: disabled Physical Exam Vital Signs: Last Vital Signs Pulse 82 01/21/25 13:14 BP 104/72 01/21/25 13:14 Pulse Ox 93 01/21/25 13:14 Oxygen Delivery Method Room Air 01/21/25 13:14 BMI result Body Mass Index 39.8 Assessment & Plan Assessment & Plan Orders: Orders RT PSG in-lab sleep study Today G47.33 - Obstructive sleep apnea (adult) (pediatric) Coding
--- NOTE | 2025-01-21 13:24 | A.OFFVIS_ITS ---
Vital Signs 01/21/25 13:14 Height 5 ft 5 in Weight 239 lb 6 oz BMI 39.8 BP 104/72 Blood Pressure Location Rt brachial Position Sitting Pulse 82 Pulse Source Pulse Oximeter Pulse Oximetry (%) 93 Oxygen Delivery Method Room Air Intake Visit Reasons: Follow up Allergies ampicillin Allergy (Intermediate, Verified 12/26/24 14:08) hives carisoprodol (From Soma) Allergy (Intermediate, Verified 12/26/24 14:08) Hives chlorzoxazone (From Parafon Forte) Allergy (Intermediate, Verified 12/26/24 14:08) Nausea and Vomiting ciprofloxacin (From Cipro) Allergy (Intermediate, Verified 12/26/24 14:08) Rash codeine Allergy (Intermediate, Verified 12/26/24 14:08) Nausea and Vomiting diphenhydramine (From Benadryl) Allergy (Intermediate, Verified 12/26/24 14:08) rash erythromycin base Allergy (Intermediate, Verified 12/26/24 14:08) Nausea and Vomiting fexofenadine (From Katlyn) Allergy (Intermediate, Verified 12/26/24 14:08) Hives penicillin G Allergy (Intermediate, Verified 12/26/24 14:08) Rash ranitidine Allergy (Intermediate, Verified 12/26/24 14:08) Rash Sulfa (Sulfonamide Antibiotics) Allergy (Intermediate, Verified 12/26/24 14:08) hives tetracycline Allergy (Intermediate, Verified 12/26/24 14:08) Hives tolmetin (From Tolectin) Allergy (Intermediate, Verified 12/26/24 14:08) hives HPI Comments Details: 69y/o female with tremors and VANESSA comes for follow up after 3 years. Tremors- worse, halley hands , leg tremors .action and rest tremors. she can manage ADLs. VANESSA- not on CPAP - says she did not get her new equipment. she has excessive daytime sleepiness. she has loud snoring , witnessed apneas. she has a nasal polyp , DNS History from last visit- 2021 She also wants to know if she has dementia, parkinsons. She reports tremors for more than 5 years now. The tremors are in both her UE and LE.The tremors are mostly with posture and rest. The tremors are intermittent and worse with anxiety. She has trouble using her computer because of her tremors.she denies any problems with eating, dressing , showering. she also reports UE jerks at rest.No change in voice. She has some short term memory issues. She has h/o sleep apnea but does not have CPAP now. she is in the process ofgetting a new CPAP. she has trouble falling asleep staying asleep , has loud snoring. [facility], [facility] Medical History Diabetes Anxiety Depression Obstructive sleep apnea Scoliosis Obesity (BMI 30-39.9) Lumbar spinal stenosis Neurogenic bladder Arachnoid cyst Surgical History H/O laparoscopy Hx of tonsillectomy H/O hernia repair H/O tooth extraction H/O colonoscopy H/O: H/O brain surgery Family History Father Acute arthritis Mother Acute arthritis Brain tumor Vitamin B12 deficiency Father Heart attack Family/Other Brain tumor Cancer Social History Household Members Other:: lives alone Housing: Apartment Do you presently have visiting nurse or other home services: Yes (homemaker) Alcohol intake: never Patient Tobacco Use Status: Never used Tobacco e-Cigarette/Vaping Use: Never Used service: No Current occupational status: disabled Physical Exam Vital Signs: Last Vital Signs Pulse 82 01/21/25 13:14 BP 104/72 01/21/25 13:14 Pulse Ox 93 01/21/25 13:14 Oxygen Delivery Method Room Air 01/21/25 13:14 BMI result Body Mass Index 39.8 Assessment & Plan Assessment & Plan (1) Tremors of nervous system: Comment: likely exaggerated physiological tremors, no evidence of parkinsons disease Code(s): R25.1 - Tremor, unspecified Category: Medical (2) Obstructive sleep apnea: Code(s): G47.33 - Obstructive sleep apnea (adult) (pediatric) Category: Medical (3) Memory change: Comment: multifactorial, medications, ? mood disorder, Untreated sleep apnea. Code(s): R41.3 - Other amnesia Category: Medical Plan Restart CPAP F/u psychiatry for mood Will follow up on tremors clinically MRI brain report for review. Coding Diagnoses Tremors of nervous system R25.1 Obstructive sleep apnea G47.33 Memory change R41.3
--- OUTSIDE RECORDS SUMMARY | 2025-01-21 13:31 | XMS_ITS | Clinical Summary ---
Author Organization [address] Address [address] [place] [phone] Phone Care Team Providers Care Rug Measurer Name Role Phone Chato Romero MD Primary Care Provider [phone] Allergies Active Allergy Reactions Criticality Noted Date [...] A WEEK 120 mL 05/03/20 24 Active traZODone (DESYREL) 50 mg tablet [...] HOURS NEEDED FOR ITCHING 09/22/19 21 Active estradioL (ESTRACE) 0.01 % (0.1 mg/gram) [...] Pantiliners) pad Use daily for Incontinence Active gabapentin (NEURONTIN) 600 mg tablet Take 1 tab in the morning, 1 tab in the afternoon, and 1.5 tab at bedtime 105 tablet 07/18/19 25 Active diclofenac (VOLTAREN) 1 % topical [...] (SINGULAIR) 10 mg tabletIndicati ons:COPD with asthma ([facility] V24, [facility] V28) TAKE 1 TABLET BY MOUTH AT BEDTIME 30 tablet 3 10/26/19 25 Active azelastine (ASTELIN) 137 mcg (0.1 %) nasal sprayIndicatio ns:Non-seasona l allergic rhinitis due to fungal spores USE 2 SPRAYS IN EACH NOSTRIL TWICE DAILY DIRECTED 30 mL 2 12/10/19 25 Active inhalational spacing device inhaler Used as directed. 1 each 12/10/19 25 026 Active albuterol 2.5 mg /3 mL (0.083 %) nebulizer solutionIndica tions:COPD with asthma ([facility] V24, [facility] V28) Take 3 mL (2.5 mg total) by nebulization every 4 (four) hours if needed for wheezing. USE 1 VIAL VIA NEBULIZER EVERY 4 HOURS NEEDED FOR WHEEZING 375 mL 12/10/19 25 Active blood sugar diagnostic (FreeStyle Lite Strips) test strip USE ONCE DAILY TO TEST BLOOD SUGAR 100 strip 1 12/14/19 25 Active metFORMIN (GLUCOPHAGE) 500 mg tablet Take 1 tablet (500 mg total) by mouth 2 (two) times a day with meals. 180 tablet 1 12/14/19 25 Active fluticasone-um eclidinium-gaye anterol (Trelegy Ellipta) 100-62.5-25 mcg inhaler INHALE 1 PUFF INTO THE LUNGS DAILY 180 each 3 07/17/20 25 Active loratadine (CLARITIN) 10 mg tablet TAKE 1 TABLET BY MOUTH EVERY DAY NEEDED FOR ALLERGIES 90 tablet 1 01/22/20 25 Active fluticasone-um eclidinium-gaye anterol (Trelegy Ellipta) 100-62.5-25 mcg inhaler Inhale 1 Puff into the lungs daily. 01/10/20 24 025 Discontinued loratadine (CLARITIN) 10 mg tablet TAKE 1 TABLET BY MOUTH EVERY DAY NEEDED FOR ALLERGIES 90 tablet 1 08/02/19 25 025 Discontinued Active Problems Problem Noted Date Diagnosed Date Neurogenic bladder 07/21/2021 Overview (05/21/2024): Due to underlining diabetes. Follows with [facility] urology. 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 Fenestration [...] Encounters Date Type Department Care Team Description 01/03/2025 12:30 PM EDT Treatment [address] [phone] Jac Gifford, PT Bilateral chronic knee pain (Primary Dx) 01/01/2025 Telephone Adult Medicine [address] [phone] Chato Romero MD PT-1 12/30/2024 Telephone Pulmonolgy - [place] [address] [phone] Hilda Díaz, LOUISE Med Refill 12/19/2024 2:30 PM EDT Treatment [address] [phone] Desmond Garcia, VENEER SAWYER Bilateral chronic knee pain (Primary Dx) 12/12/2024 2:00 PM EDT Treatment [address] [phone] Jac Gifford, PT Bilateral chronic knee pain (Primary Dx) 12/09/2024 1:00 PM EDT Office Visit Adult Medicine [address] [phone] Tasha Cintron, LOUISE Fall, initial encounter (Primary Dx); Rib contusion, right, initial encounter; COPD with asthma (CMS/HCC V24, CMS/HCC V28); Bilateral chronic knee pain; Fibromyalgia 12/03/2024 Telephone Adult Medicine [address] [phone] Chato Romero MD Fall 11/30/2024 7:46 PM EDT - 12/01/2024 1:02 AM EDT Emergency [facility] Emergency [address] [place] [phone] Aissatou Hsieh MD Fall, initial encounter (Primary Dx); Rib contusion, right, initial encounter Discharge Disposition: Home or Self Care 11/11/2024 3:00 PM EDT Treatment [address] [phone] Jac Gifford, PT Bilateral chronic knee pain (Primary Dx) 10/28/2024 3:30 PM EDT Treatment [address] [phone] Jac Gifford, PT Bilateral chronic knee pain (Primary Dx) from Last 3 Months Immunizations Name Administration Dates Next Due Influenza Quadravalent, 0.5m l (Fluad) 65yo and older 05/30/2022 Influenza Quadravalent, 0.5m l (Fluzone High-dose) 65yo and older 04/16/2023 Influenza trivalent, 0.5mL ( Fluad) 65yo and older 06/03/2021 [employer] SARS-CoV-2 COVID-19, mRNA, LNP-S, preservative free 06/20/2021,12/17/2020,11/26/2020 Td, Unspecified 11/04/2002 Tdap Tetanus diptheria acell ular pertussis (Boostrix; Adacel) 7yo and older 02/15/2013 Surgical History Surgery Date Site/Laterality Comments OTHER SURGICAL HISTORY PROCEDURE: OR LAPAROSCOPY W/LYSIS OF ADHESIONS COLONOSCOPY 11/07/06 PROCEDURE: [...] Sees Dr. Crisostomo Cyst of pituitary gland ([facility]/HCC V24) 03/24/2011 DX:Cyst of pituitary gland ([facility]) Family history of cancer 07/18/2014 DX:Fami ly history of cancer COPD (chronic obstructive pu lmonary disease) (CMS/HCC V24, CMS/HCC V28) DX:COPD (chronic o bstructive pulmonary disease) (HCC) Thyroid nodule DX:Thyroid nodul e Acute pancreatitis 08/05/2019 DX:Acute panc reatitis; COMMENT: Admitted [facility] 06/29/2019 Essential hypertension 10/08/2020 Family History Medical [...] Information Value Date Recorded Sex Assigned at Female 11/30/2024 8:38 PM EDT Legal Sex Female 9:30 PM EST Gender Identity Female 11/30/2024 8:38 PM EDT Sexual Orientation Straight 11/30/2024 8: 38 PM EDT Obstetrics History Last Filed Vital Signs Vital Sign Reading Time Taken Comments Blood Pressure 95/57 12/09/2024 1:02 PM EDT Pulse 77 12/09/2024 1:02 PM EDT Temperature 36.7 C (98.1 F) 12/09/2024 1:02 PM EDT Respiratory Rate 12 12/09/2024 1:02 PM EDT Oxygen Saturation 96% 12/09/2024 1:02 PM EDT Inhaled Oxygen Concentration - - Weight 110 kg (242 lb) 12/09/2024 1:02 PM EDT Height 165.1 cm (5' 5 ) 12/09/2024 1:02 PM EDT Body Mass Index 40.27 12/09/2024 1:02 PM EDT Plan of Treatment Upcoming Encounters Date Type Department Care Team (Late st Contact Info) Description 02/03/2025 3:45 PM EDT Office Visit Adult Medicine [address] [phone] Chato Romero MD [address] [place] [address] 02/10/2025 2:45 PM EDT Office Visit Pulmonolgy - [place] 175 [facility] [address] [place] [phone] Hilda Díaz, LOUISE 175 [facility] [address] [place] [address] 04/04/2025 1:30 PM EDT Appointment Radiology Department - [address] [phone] Health Maintenance Due Date Last Done Comments [...] ( - season) 2024 06/20/2021, 12/17/2020, 11/26/2020 Depression Screening 06/26/2024 12/29/2023 Diabetes: Blood Sugar Control Test (HGBA1C) 07/04/2024 01/02/2024, 01/02/2024 Falls Risk Assessment 07/20/2024 07/20/2023 Medicare Annual Wellness Visit 12/28/2024 12/29/2023 Diabetes: Annual Urine Albumin-Creatinine Ratio (uACR) 01/01/2025 01/02/2024 Diabetes: Annual Foot Exam 01/23/2025 01/24/2024 Diabetes: Annual Retina Eye Exam 01/23/2025 01/24/2024 Influenza Vaccine (#1) 2025 , 04/16/2023, 05/30/2022, Additional history exists Diabetes: Annual GFR (Glomerular Filtration Rate) 11/30/2025 11/30/2024, 01/02/2024, 01/02/2024 Hypertension/CHF/CAD Annual BMP Blood Test 11/30/2025 11/30/2024, 01/02/2024, 01/02/2024 Breast Cancer Screening 03/21/2026 03/21/20, 03/21/2024, 10/08/2020 Cholesterol Screening (Lipid Panel) 01/01/2029 01/02/2024, 01/02/2024 Osteoporosis Screening (Bone Density Screening) 09/16/2030 09/16/2020 Hepatitis C Screening Completed 01/08/2019 Colorectal Cancer Screening: Colonoscopy Discontinued 08/22/2023 HIB Vaccines Aged Out No longer eligi [...] Procedure Name Priority Date/Time Associated Diagnosis Comments ECG ANNOTATED 12/04/2024 CT CERVICAL SPINE WO CONTRAST STAT 11/30/2024 11:[address] HEAD WO CONTRAST STAT 11/30/2024 1 1:[address] CHEST WO CONTRAST STAT 11/30/2024 11:09 PM EDT POCT GLUCOSE BLOOD Routine 11/30/2024 10 :39 PM EDT XR HIP 2-3 VIEWS RIGHT STAT 11/30/2024 8:39 PM EDT XR KNEE 4+ VIEWS RIGHT STAT 11/30/2024 8:39 PM EDT XR RIBS W CHEST 3+ VIEWS RIGHT STAT 11/30/2024 8:39 PM EDT CBC WITH AUTO DIFFERENTIAL STAT 11/30/2024 8:05 PM EDT BASIC METABOLIC PANEL STAT 11/30/2024 8:05 PM EDT CBC AND DIFFERENTIAL STAT 11/30/2024 8:05 PM EDT SCREENING MAMMOGRAPHY BI 2-VIEW BREAST INC CAD Routine 03/21/2024 10:54 AM EDT Encounter for other screening for malignant neoplasm of breast DIABETES EYE EXAM Routine 01/24/2024 DIABETES FOOT EXAM Routine 01/24/2024 URINE ALBUMIN CREATININE RATIO Routine 01/02/2024 HEMOGLOBIN A1C Routine 01/02/2024 LIPID PANEL Routine 01/02/2024 DEPRESSION SCREENING Routine 12/29/2023 COLONOSCOPY Routine 08/22/2023 FALLS RISK ASSESSMENT Routine 07/20/2023 DXA BONE DENSITY STUDY 1+ SITS AXIAL SKEL Routine 09/16/2020 3:18 PM EDT Unspecified menopausal and perimenopausal disorder HEPATITIS C SCREENING Routine 01/08/2019 from Last 3 Months or Most Recently Relevant to Health Maintenance Results * ECG-Annotated (12/04/2024) us Provider Onbase MD ECG ORDERABLES Final Result * CT Cervical Spine wo Contrast (11/30/2024 11:15 PM EDT) Anatomical Region Laterality Modality Spine, C-spine Computed Tomogra phy 12/01/2024 12:1 5 AM EDT Impressions 12/01/2024 12:15 AM EDT Impression: No acute processes This document has been electronically signed by: Seth Monsivais MD on 12/01/2024 00:15:27 Narrative 12/01/2024 12:15 AM EDT INDICATION: fall CT cervical spine without contrast Comparison: None Findings: No acute fracture or dislocation. Posterior alignment is normal. Moderate degenerative change. No radiopaque foreign bodies. Procedure Note Seth Monsivais MD - 12/01/2024 INDICATION: fall CT cervical spine without contrast Comparison: None Findings: No acute fracture or dislocation. Posterior alignment is normal. Moderate degenerative change. No radiopaque foreign bodies. IMPRESSION: Impression: No acute processes This document has been electronically signed by: Seth Monsivais MD on 12/01/2024 00:15:[address] PROCEDURES Final Re sult * CT Head wo Contrast (11/30/2024 11:15 PM EDT) Anatomical Region Laterality Modality Head and Neck Computed Tomogra phy 11/30/2024 11:5 0 PM EDT Impressions 11/30/2024 11:50 PM EDT Impression: No acute intracranial process This document has been electronically signed by: Seth Monsivais MD on 11/30/2024 23:50:35 Narrative 11/30/2024 11:50 PM EDT INDICATION: trauma CT head without contrast Comparison: None Findings: No intracranial mass, midline shift, hydrocephalus, or acute hemorrhage. Mild chronic ischemic white matter disease without volume loss. No acute process in sinuses or mastoids. No acute bony abnormality. Procedure Note Seth Monsivais MD - 11/30/2024 INDICATION: trauma CT head without contrast Comparison: None Findings: No intracranial mass, midline shift, hydrocephalus, or acute hemorrhage. Mild chronic ischemic white matter disease without volume loss. No acute process in sinuses or mastoids. No acute bony abnormality. IMPRESSION: Impression: No acute intracranial process This document has been electronically signed by: Seth Monsivais MD on 11/30/2024 23:50:[address] PROCEDURES Final Re sult * CT Chest wo Contrast (11/30/2024 11:09 PM EDT) Anatomical Region Laterality Modality Body Computed Tomogra phy 12/01/2024 12:1 0 AM EDT Impressions 12/01/2024 12:10 AM EDT Impression: Indeterminate right lower lobe nodules Recommend 12 month follow-up CT Right lower lobe atelectasis versus scar No other abnormality This document has been electronically signed by: Seth Monsivais MD on 12/01/2024 00:10:24 Narrative 12/01/2024 12:10 AM EDT INDICATION: please eval for rib fx, right sided bruising after fall CT chest without contrast Comparison: None Findings: Right lower lobe atelectasis versus scar Indeterminate 5 mm anterolateral right lower lobe nodule. 7.5 mm medial right lower lobe indeterminate nodule. Recommend 12 month follow-up CT. No significant mediastinal adenopathy. No significant free pleural fluid. No significant focal bony abnormalities. Procedure Note Seth Monsivais MD - 12/01/2024 INDICATION: please eval for rib fx, right sided bruising after fall CT chest without contrast Comparison: None Findings: Right lower lobe atelectasis versus scar Indeterminate 5 mm anterolateral right lower lobe nodule. 7.5 mm medial right lower lobe indeterminate nodule. Recommend 12 month follow-up CT. No significant mediastinal adenopathy. No significant free pleural fluid. No significant focal bony abnormalities. IMPRESSION: Impression: Indeterminate right lower lobe nodules Recommend 12 month follow-up CT Right lower lobe atelectasis versus scar No other abnormality This document has been electronically signed by: Seth Monsivais MD on 12/01/2024 00:10:24 us Jordana MCGARRY IMG CT PROCEDURES Final Re sult * (ABNORMAL) POCT Glucose, blood (11/30/2024 10:39 PM EDT) Glucose POCT 111(H) 70 - 100 mg/dL 11/30/2024 10:40 PM EDT [facility] Blood Capillary blood specimen / Unknown 11/30/2024 10:39 PM EDT 11/30/2024 10:41 PM EDT Aissatou Hsieh MD LAB POINT OF CARE TE ST DOCKED DEVICE UNSOLICITED RESULTS Final Result [facility] [address] [place] [address], [place] [phone] * XR Knee 4+ Views Right (11/30/2024 8:39 PM EDT) Anatomical Region Laterality Modality Lower Extremities, Knee Right Radiogra phic Imaging 12/01/2024 12:5 8 AM EDT Impressions 12/01/2024 1:03 AM EDT FINDINGS/IMPRESSION: No acute fracture or dislocation. Mild tricompartmental degenerative changes. No joint effusion or focal soft tissue swelling. -------- FINAL REPORT -------- Dictated By: PETE FLETCHER Dictated Date: 12/01/2024 00:58 ET Assigned Physician: PETE FLETCHER Reviewed and Electronically Signed By: PETE FLETCHER Signed Date: 12/01/2024 01:03 ET Workstation ID: [id number] Transcribed By: Self Edit Transcribed Date: 12/01/2024 00:58 ET Narrative 12/01/2024 1:03 AM EDT XR KNEE 4+ VIEWS RIGHT INDICATION: Pain TECHNIQUE: XR KNEE 4+ VIEWS RIGHT COMPARISON: No priors available. Procedure Note Pete Fletcher MD - 12/01/2024 XR KNEE 4+ VIEWS RIGHT INDICATION: Pain TECHNIQUE: XR KNEE 4+ VIEWS RIGHT COMPARISON: No priors available. IMPRESSION: FINDINGS/IMPRESSION: No acute fracture or dislocation. Mildtricompartmental degenerative changes. No joint effusion or focal softtissue swelling. -------- FINAL REPORT -------- Dictated By: PETE FLETCHER Dictated Date: 12/01/2024 00:58 ET Assigned Physician: PETE FLETCHER Reviewed and Electronically Signed By: PETE FLETCHER Signed Date: 12/01/2024 01:03 ET Workstation ID: [id number] Transcribed By: Self Edit Transcribed Date: 12/01/2024 00:58 ET Aissatou Hsieh MD IMG XR PROCEDURES Final Result * XR Hip 2-3 Views Right (11/30/2024 8:39 PM EDT) Anatomical Region Laterality Modality Lower Extremities, Hip Right Radiograp hic Imaging 12/01/2024 1:01 AM EDT Impressions 12/01/2024 1:02 AM EDT FINDINGS/IMPRESSION: No acute fracture or dislocation. Mild degenerative changes at the hips. Levoconvex lumbar scoliosis with degenerative changes throughout the lower lumbar spine. -------- FINAL REPORT -------- Dictated By: PETE FLETCHER Dictated Date: 12/01/2024 01:01 ET Assigned Physician: PETE FLETCHER Reviewed and Electronically Signed By: PETE FLETCHER Signed Date: 12/01/2024 01:02 ET Workstation ID: [id number] Transcribed By: Self Edit Transcribed Date: 12/01/2024 01:01 ET Narrative 12/01/2024 1:02 AM EDT XR HIP 2-3 VIEWS RIGHT INDICATION: Pain TECHNIQUE: XR HIP 2-3 VIEWS RIGHT COMPARISON: No priors available. Procedure Note Pete Fletcher MD - 12/01/2024 XR HIP 2-3 VIEWS RIGHT INDICATION: Pain TECHNIQUE: XR HIP 2-3 VIEWS RIGHT COMPARISON: No priors available. IMPRESSION: FINDINGS/IMPRESSION: No acute fracture or dislocation. Mild degenerativechanges at the hips. Levoconvex lumbar scoliosis with degenerativechanges throughout the lower lumbar spine. -------- FINAL REPORT -------- Dictated By: PETE FLETCHER Dictated Date: 12/01/2024 01:01 ET Assigned Physician: PETE FLETCHER Reviewed and Electronically Signed By: PETE FLETCHER Signed Date: 12/01/2024 01:02 ET Workstation ID: [id number] Transcribed By: Self Edit Transcribed Date: 12/01/2024 01:01 ET Aissatou Hsieh MD IMG XR PROCEDURES Final Result * XR Ribs w Chest 3+ Views Right (11/30/2024 8:39 PM EDT) Anatomical Region Laterality Modality Body Right Radiographic Alia ging 12/01/2024 1:03 AM EDT Impressions 12/01/2024 1:05 AM EDT FINDINGS/IMPRESSION: Lungs are clear. No pleural effusion or pneumothorax. Cardiac silhouette is normal in size. Mild degenerative changes seen throughout the bones. No acute displaced rib fracture. -------- FINAL REPORT -------- Dictated By: PETE FLETCHER Dictated Date: 12/01/2024 01:03 ET Assigned Physician: PETE FLETCHER Reviewed and Electronically Signed By: PETE FLETCHER Signed Date: 12/01/2024 01:05 ET Workstation ID: [id number] Transcribed By: Self Edit Transcribed Date: 12/01/2024 01:03 ET Narrative 12/01/2024 1:05 AM EDT XR RIBS W CHEST 3+ VIEWS RIGHT INDICATION: Pain TECHNIQUE: XR RIBS W CHEST 3+ VIEWS RIGHT COMPARISON: 12/17/2021 Procedure Note Pete Fletcher MD - 12/01/2024 XR RIBS W CHEST 3+ VIEWS RIGHT INDICATION: Pain TECHNIQUE: XR RIBS W CHEST 3+ VIEWS RIGHT COMPARISON: 12/17/2021 IMPRESSION: FINDINGS/IMPRESSION: Lungs are clear. No pleural effusion orpneumothorax. Cardiac silhouette is normal in size. Mild degenerativechanges seen throughout the bones. No acute displaced rib fracture. -------- FINAL REPORT -------- Dictated By: PETE FLETCHER Dictated Date: 12/01/2024 01:03 ET Assigned Physician: PETE FLETCHER Reviewed and Electronically Signed By: PETE FLETCHER Signed Date: 12/01/2024 01:05 ET Workstation ID: [id number] Transcribed By: Self Edit Transcribed Date: 12/01/2024 01:03 ET Aissatou Hsieh MD IMG XR PROCEDURES Final Result * (ABNORMAL) CBC auto differential (11/30/2024 8:05 PM EDT) [facility] WBC 6.5 4.8 - 10.8 K/mcL LAB HEMETOLOGY METHOD 11/30/2024 8:35 PM EDT [facility] RBC 4.40 3.80 - 4.80 M/mcL LAB HEMETOLOGY METHOD 11/30/2024 8:35 PM EDT [facility] Hemoglobin 12.3 11.5 - 16.0 g/dL LAB HEMETOLOGY METHOD 11/30/2024 8:35 PM EDT [facility] Hematocrit 37.6 35.0 - 47.0 % LAB HEMETOLOGY METHOD 11/30/2024 8:35 PM EDT [facility] MCV 85.8 79.0 - 98.0 FL LAB HEMETOLOGY METHOD 11/30/2024 8:35 PM EDT [facility] MCH 28.1 27.0 - 32.0 pcg LAB HEMETOLOGY METHOD 11/30/2024 8:35 PM EDT [facility] MCHC 32.7 32.0 - 37.0 g/dL LAB HEMETOLOGY METHOD 11/30/2024 8:35 PM EDT [facility] RDW 12.4 11.0 - 15.0 % LAB HEMETOLOGY METHOD 11/30/2024 8:35 PM EDT [facility] Platelets 196 130 - 400 K/mcL LAB HEMETOLOGY METHOD 11/30/2024 8:35 PM EDT [facility] MPV 9.8 7.0 - 11.0 FL LAB HEMETOLOGY METHOD 11/30/2024 8:35 PM EDT [facility] NRBC 0.0 <1.0 % LAB [facility] NR[facility] Absolute 0.00 <0.10 K/mcL LAB HEMETOLOGY METHOD 11/30/2024 8:35 PM EDT [facility] Neutrophils Relative 62.3 % LAB HEMETOLOGY METHOD 11/30/2024 8:35 PM EDT [facility] Lymphocytes Relative 20.6 % LAB HEMETOLOGY METHOD 11/30/2024 8:35 PM [facility] Monocytes Relative 11.1 % LAB HEMETOLOGY METHOD 11/30/2024 8:35 PM T [facility] Eosinophils Relative 4.3 % LAB HEMETOLOGY METHOD 11/30/2024 8:35 PM EDT [facility] Basophils Relative 0.8 % LAB HEMETOLOGY METHOD 11/30/2024 8:35 PM [facility] Immature Granulocytes Relative 0.9 % LAB HEMETOLOGY METHOD 11/30/2024 8:35 PM [facility] Neutrophils Absolute 4.05 1.50 - 7.00 K/mcL LAB HEMETOLOGY METHOD 11/30/2024 8:35 PM EDT [facility] Lymphocytes Absolute 1.34 1.00 - 5.00 K/mcL LAB HEMETOLOGY METHOD 11/30/2024 8:35 PM EDT [facility] Monocytes Absolute 0.72 0.20 - 1.00 K/mcL LAB HEMETOLOGY METHOD 11/30/2024 8:35 PM EDT [facility] Eosinophils Absolute 0.28 0.00 - 0.50 K/mcL LAB HEMETOLOGY METHOD 11/30/2024 8:35 PM EDT [facility] Basophils Absolute 0.05 0.00 - 0.20 K/mcL LAB HEMETOLOGY METHOD 11/30/2024 8:35 PM EDT [facility] Immature Granulocytes Absolute 0.06(H) 0.00 - 0.03 K/mcL LAB HEMETOLOGY METHOD 11/30/2024 8:35 PM EDT [facility] Blood Venous blood specimen / Unknown Venipuncture / Unknown 11/30/2024 8:05 PM EDT 11/30/2024 8:31 PM EDT us Aissatou Hsieh MD LAB BLOOD ORDERABLES Final Resul t [facility] [address] [place] [address], * (ABNORMAL) Basic metabolic panel (11/30/2024 8:05 PM EDT) Sodium 137 133 - 145 mmol/L LAB CHEMISTRY METHOD 11/30/2024 8:55 PM [facility] Potassium 3.9 3.5 - 5.5 mmol/L LAB CHEMISTRY METHOD 11/30/2024 8:55 PM [facility] Chloride 103 96 - 110 mmol/L LAB CHEMISTRY METHOD 11/30/2024 8:55 PM [facility] CO2 28 21 - 32 mmol/L LAB CHEMISTRY METHOD 11/30/2024 8:55 PM [facility] Anion Gap 6 3 - 11 LAB CHEMISTRY METHOD 11/30/2024 8:55 PM [facility] Glucose 165(H) 70 - 100 mg/dL LAB CHEMISTRY METHOD 11/30/2024 8:55 PM [facility] BUN 16 5 - 25 mg/dL LAB CHEMISTRY METHOD 11/30/2024 8:55 PM [facility] Creatinine 0.88 0.50 - 1.10 mg/dL LAB CHEMISTRY METHOD 11/30/2024 8:55 PM EDT [facility] eGFR 71 >=60 mL/min/1. 73m2 LAB CHEMISTRY METHOD 11/30/2024 8:55 PM EDT [facility] Comment:Calculation based on the Chronic Kidney Disease Epidemiology Collaboration (CKD-EPI) equation refit without adjustment for race. BUN/Creatinine Ratio 18.2 LAB CHEMISTRY METHOD 11/30/2024 8:55 PM EDT [facility] Calcium 9.9 8.5 - 10.5 mg/dL LAB CHEMISTRY METHOD 11/30/2024 8:55 PM EDT [facility] Blood Venous blood specimen / Unknown Venipuncture / Unknown 11/30/2024 8:05 PM EDT 11/30/2024 8:31 PM EDT us Aissatou Hsieh MD LAB BLOOD ORDERABLES Final Resul t [facility] [address] [place] [address], * SCREENING MAMMOGRAPHY BI 2-VIEW BREAST INC [...] interpreted with the aid of computer-aided detection. Comparison is made with 10/08/2020. Images are limited due to patient body habitus and difficulty holding position for imaging. Images obtained are the best possible. Breast parenchyma is predominantly fatty replaced. No new suspicious mass, architectural distortion, or suspicious calcifications. Impression: No mammographic evidence of malignancy. BI-RADS 1 - negative [facility] [address] [place] [address] Procedure Note Lucinda Carroll MD - 04/10/2024 [...] evidence of malignancy. BI-RADS 1 - negative [address] [address] Result [facility] Chato Romero MD IMG XR PROCEDURES Final Result * Diabetes Foot Exam (01/24/2024) [facility] Diabetes: Annual Foot Exam Abstracted Result [facility] [facility] HEALTH MAINTENANCE Final Result * Diabetes Eye Exam (01/24/2024) [facility] Diabetes: Annual Retina Eye Exam Abstracted Result [facility] HEALTH MAINTENANCE Final Result * Urine Albumin Creatinine Ratio (01/02/2024) [facility] Urine Albumin Creatinine Ratio Abstracted Result [facility] HEALTH MAINTENANCE Final Result * (ABNORMAL) Hemoglobin A1c (01/02/2024) [facility] Hemoglobin A1C 5.9(A) >=6.5 % Blood Venous blood specimen / Unknown Result [facility] Provider LAB BLOOD ORDERABLES Steph l Result * (ABNORMAL) Lipid panel (01/02/2024) [facility] LDL/HDL Ratio 3 0 - 4 Triglycerides 235(A) 0 - 150 mg/dL Cholesterol 212(A) 0 - 200 mg/dL HDL 65 >=40 mg/dL LDL Cholesterol 100 0 - 100 mg/dL Blood Venous blood specimen / Unknown [facility] LAB BLOOD ORDERABLES Steph l Result * Depression Screening (12/29/2023) [facility] Depression Screening Abstracted [facility] HEALTH MAINTENANCE Final Result * Colonoscopy (08/22/2023) [facility] Colonoscopy No interpreta tion,abstr acted Anatomical Region Laterality Modality Other [facility] HEALTH MAINTENANCE Final Result * Falls Risk Assessment (07/20/2023) [facility] Falls Risk Assessment Abstracted Result [facility] HEALTH MAINTENANCE Final Result * DXA BONE DENSITY STUDY 1+ SITS AXIAL SKEL (09/16/2020 3:18 PM EDT) Anatomical Region Laterality Modality Bone Densitometr y 03/18/2020 12:0 4 PM EDT Narrative 09/16/2020 3:37 PM EDT BONE DENSITY (DEXA) Lumbar Spine T-score is [...] (World Health Organization Fracture Risk Assessment) [facility] Department of Internal Medicine recommends using National [...] alternative screening schedule based on arjun Espinal., [facility] July 14, 2011 for patients with osteopenia [...] (World Health Organization Fracture Risk Assessment) [facility] Department of Internal Medicine recommendsusing National Osteoporosis [...] alternative screening schedule based on arjun Espinal., [facility] for patients with osteopenia (based on hip BMD T-score) is as follows: * advanced osteopenia (T scores -2.00 to -2.49), BMD testing every year * moderate osteopenia (T scores -1.50 to -1.99), BMD testing every 5years mild osteopenia or normal BMD (T scores -1.50 and higher), BMD testingevery 15 years Jessi LINDQUIST DXA PROCEDURES Final Result * Hepatitis C Screening (01/08/2019) [facility] Hepatitis C Screening Abstracted Historical Provider HEALTH MAINTENANCE Final Result from Last 3 Months or Most Recently Relevant to Health Maintenance Insurance MEDICARE [place]ICA[place] - [place] Care Teams Rug Measurer Relationship Specialty Start Date End Date Chato Romero MD [address] [place] [id number] PCP - General Internal Medicine 04/13/21
--- OUTSIDE RECORDS SUMMARY | 2025-01-21 13:31 | XMS_ITS ---
Author Name [facility] Organization Unknown Care Team Organization Name Specialty Phone Email Start Date End Da te [facility] CHARLEY GONSALVES Primary Care 12/02/2022 [facility] Hilda Díaz Primary Care 08/31/2022 02/12/2024 [facility] Termed, PROVIDER Primary Care 05/03/202201/24
--- OUTSIDE RECORDS SUMMARY | 2025-01-21 13:31 | XMS_ITS | Clinical Summary ---
Author Organization [facility] Address [address] [place] [address] Care Team Providers Care Manager Lab Name Role Phone Betty Cunha DO Primary Care P rovider Social History Tobacco Use Types Packs/Day Years Used Date Smoking Tobacco: Never Assessed Sex and Gender Information Value Date Recorded Sex Assigned at Not on file Gender Identity Not on file Sexual Orientation Not on file Plan of Treatment Health Maintenance Due Date Last Done Comments Hepatitis C Screening 1955 COVID-19 Vaccine (#1) 1955 Depression Screening 1967 Preventative Health Evaluation 1973 Colon Cancer Screening (Colonoscopy) 2000 Breast Cancer Screening (Mammogram) 2005 Shingrix-Zoster Vaccine (1 of 2) 2005 Fall Risk Assessment 2020 Osteoporosis Screening (DEXA Scan) 2020 Pneumococcal Vaccine (1 of 1 - PCV) 2020 DTap / Tdap / Td (2 - Td or Tdap) 02/15/2023 013 Influenza Vaccine (#1) 2025 RSV Adult > 60+ Yrs or Pregn ant (1 - 1-dose 75+ series) 2030 Hepatitis B Vaccines Aged Out No long er eligible based on patient's age to complete this topic RSV Ped < 20 months Aged Out No longe r eligible based on patient's age to complete this topic Care Teams Manager Lab Relationship Specialty Start Date End Date Betty Cunha DO PCP - General [employer] 12/04/20
--- NOTE | 2025-01-21 13:42 | A.OFFVIS_ITS ---
Vital Signs 01/21/25 13:14 Height 5 ft 5 in Weight 239 lb 6 oz BMI 39.8 BP 104/72 Blood Pressure Location Rt brachial Position Sitting Pulse 82 Pulse Source Pulse Oximeter Pulse Oximetry (%) 93 Oxygen Delivery Method Room Air Intake Visit Reasons: Follow up Allergies ampicillin Allergy (Intermediate, Verified 12/26/24 14:08) hives carisoprodol (From Soma) Allergy (Intermediate, Verified 12/26/24 14:08) Hives chlorzoxazone (From Parafon Forte) Allergy (Intermediate, Verified 12/26/24 14:08) Nausea and Vomiting ciprofloxacin (From Cipro) Allergy (Intermediate, Verified 12/26/24 14:08) Rash codeine Allergy (Intermediate, Verified 12/26/24 14:08) Nausea and Vomiting diphenhydramine (From Benadryl) Allergy (Intermediate, Verified 12/26/24 14:08) rash erythromycin base Allergy (Intermediate, Verified 12/26/24 14:08) Nausea and Vomiting fexofenadine (From Katlyn) Allergy (Intermediate, Verified 12/26/24 14:08) Hives penicillin G Allergy (Intermediate, Verified 12/26/24 14:08) Rash ranitidine Allergy (Intermediate, Verified 12/26/24 14:08) Rash Sulfa (Sulfonamide Antibiotics) Allergy (Intermediate, Verified 12/26/24 14:08) hives tetracycline Allergy (Intermediate, Verified 12/26/24 14:08) Hives tolmetin (From Tolectin) Allergy (Intermediate, Verified 12/26/24 14:08) hives HPI Comments Details: 69y/o female with multiple medical issues comes for follow up of tremors and VANESSA.Tremors- mild , postural , action . eason snot affect her ADLS. OSA_ she did not start CPAP .she was recently diagnosed with COPD. History from last visit 2021- She also wants to know if she has dementia, parkinsons. She reports tremors for more than 5 years now. The tremors are in both her UE and LE.The tremors are mostly with posture and rest. The tremors are intermittent and worse with anxiety. She has trouble using her computer because of her tremors.she denies any problems with eating, dressing , showering. she also reports UE jerks at rest.No change in voice. She has some short term memory issues. She has h/o sleep apnea but does not have CPAP now. she is in the process ofgetting a new CPAP. she has trouble falling asleep staying asleep , has loud snoring. [facility] Medical History Diabetes Anxiety Depression Obstructive sleep apnea Scoliosis Obesity (BMI 30-39.9) Lumbar spinal stenosis Neurogenic bladder Arachnoid cyst Surgical History H/O laparoscopy Hx of tonsillectomy H/O hernia repair H/O tooth extraction H/O colonoscopy H/O: H/O brain surgery Family History Father Acute arthritis Mother Acute arthritis Brain tumor Vitamin B12 deficiency Father Heart attack Family/Other Brain tumor Cancer Social History Household Members Other:: lives alone Housing: Apartment Do you presently have visiting nurse or other home services: Yes (homemaker) Alcohol intake: never Patient Tobacco Use Status: Never used Tobacco e-Cigarette/Vaping Use: Never Used service: No Current occupational status: disabled Physical Exam Vital Signs: Last Vital Signs Pulse 82 01/21/25 13:14 BP 104/72 01/21/25 13:14 Pulse Ox 93 01/21/25 13:14 Oxygen Delivery Method Room Air 01/21/25 13:14 BMI result Body Mass Index 39.8 Const General: cooperative Nutritional Appearance: obese Orientation/consciousness: patient oriented x3 HEENT Head: Yes normal to inspection Throat: Yes other (mallampatti grade 4) Eyes Pupils: Equal, round and reactive pupils present Neck Other: antecollis Neuro General: patient oriented x3 Cranial nerves: Yes CN's II-XII intact bilaterally, Yes Facial sensation intact/muscles of mastication intact, Yes Equal, round and reactive pupils present and Yes Bilaterally intact EOM present Cognition (Neuro): normal cognition Gait exam (Neuro): Antalgic gait present and Other gait observations present (slow ) Motor exam (neuro): 5/5 motor strength present throughout Deep tendon reflexes (DTR's): Right triceps reflex intensity grade: 3+, Left triceps reflex intensity grade: 3+, Rt Biceps (C5, C6): 3+, Left biceps reflex intensity grade: 3+, Right brachioradialis reflex intensity grade: 3+, Left brac hioradialis reflex intensity grade: 3+, Right patellar reflex intensity grade: 3+ and Left patellar reflex intensity grade: 3+ Coordination: [id number] test normal Psych Affect: normal affect Assessment & Plan Assessment & Plan (1) Tremors of nervous system: Comment: likely exaggerated physiological tremors, no evidence of parkinsons disease Code(s): R25.1 - Tremor, unspecified Category: Medical (2) Obstructive sleep apnea: Code(s): G47.33 - Obstructive sleep apnea (adult) (pediatric) Category: Medical (3) Memory change: Comment: multifactorial, medications, ? mood disorder, Untreated sleep apnea. Code(s): R41.3 - Other amnesia Category: Medical Plan Reevaluate sleep apnea with an in lab sleep study Continue propranolol 60mg bid gabapentin 600mg bid and 900 mg qhs Orders: Orders RT PSG in-lab sleep study Today G47.33 - Obstructive sleep apnea (adult) (pediatric) Coding Level of Care Code Est Pt Level 4 (43618) Complex EM visit Add On G2211 Diagnoses Tremors of nervous system R25.1 Obstructive sleep apnea G47.33 Memory change R41.3
== END 2025-01-21 13:55 | disposition home or self-care (01) ==
LOC: HO.HSMS 12:47
PROVIDERS: PCP Internal Medicine; Visit Provider Psychiatry & Neurology Neurology
DX: R25.1 Tremor, unspecified (principal); G47.33 Obstructive sleep apnea (adult) (pediatric); R41.3 Other amnesia
CPT/HCPCS: 99214; G2211

== ENCOUNTER → 2025-01-21 12:47 | Outpatient (BNVA) | payer MEDICARE, MEDICAID, SELFPAY | PROVIDERS: PCP Internal Medicine; Visit Provider Psychiatry & Neurology Neurology | DX: R25.1 Tremor, unspecified (principal); G47.33 Obstructive sleep apnea (adult) (pediatric); R41.3 Other amnesia | CPT/HCPCS: 99212 ==

== ENCOUNTER 2025-02-07 13:10 | Outpatient (REF) | payer MEDICARE, MEDICAID, SELFPAY ==
--- NOTE | ~2025-02-07 | MR_ITS ---
CLINICAL HISTORY: G93.0 - Cerebral cysts MR Brain without gadolinium Comparison: None provided Findings: No restricted diffusion. No intra-axial mass or hemorrhage. No midline shift. No hydrocephalus. Vascular flow voids are intact. The orbits are normal. The sinuses and mastoid air cells are clear. No focal bone lesion. IMPRESSION: Unremarkable brain MRI. This document has been electronically signed by: Bandar Contreras MD on 02/08/2025 08:56:18
--- OUTSIDE RECORDS SUMMARY | 2025-02-07 13:13 | XMS_ITS | Clinical Summary ---
Author Organization [address] Address [address] [place] [phone] Phone Care Team Providers Care Drain Tiler Name Role Phone Chato Romero MD Primary Care Provider [phone] Allergies Active Allergy Reactions Criticality Noted Date [...] TO AFFECTED AREA TWICE DAILY NEEDED Active PARoxetine (PAXIL) 40 mg tablet Take [...] DAILY 100 g 1 07/31/19 25 Active propranoloL (INDERAL) 60 mg tablet TAKE 1 TABLET BY MOUTH TWICE DAILY 180 tablet 1 09/18/19 25 Active ketoconazole (NIZORAL) 2 % shampoo APPLY TOPICALLY TO THE AFFECTED AREA 2 TIMES A WEEK 120 mL 5 09/18/19 25 Active cholecalcifero l (VITAMIN D-3) 50 [...] (SINGULAIR) 10 mg tabletIndicati ons:COPD with asthma ([facility] V24, [facility] V28) TAKE 1 TABLET BY MOUTH AT BEDTIME 30 tablet 3 10/26/19 25 Active azelastine (ASTELIN) 137 mcg (0.1 %) nasal sprayIndicatio ns:Non-seasona l allergic rhinitis due to fungal spores USE 2 SPRAYS IN EACH NOSTRIL TWICE DAILY DIRECTED 30 mL 2 12/10/19 25 Active inhalational spacing device inhaler Used as directed. 1 each 12/10/19 25 2025 Active albuterol 2.5 mg /3 mL (0.083 %) nebulizer solutionIndica tions:COPD with asthma ([facility] V24, [facility] V28) Take 3 mL (2.5 mg total) [...] meals. 180 tablet 1 12/14/19 25 Active loratadine (CLARITIN) 10 mg tablet TAKE 1 TABLET BY MOUTH EVERY DAY NEEDED FOR ALLERGIES 90 tablet 1 01/22/20 25 Active ipratropium-al buteroL (Combivent Respimat) 20-100 mcg/actuation inhalerIndicat ions:COPD with asthma ([facility] V24, [facility] V28) INHALE 1 PUFF INTO THE LUNGS FOUR TIMES DAILY 12 g 3 02/04/20 25 2025 Active fluticasone-um eclidinium-gaye anterol (Trelegy Ellipta) 100-62.5-25 mcg inhaler Inhale 1 puff (100 mcg total) by mouth 1 (one) time each day. Rinse mouth with water after use to reduce aftertaste and incidence of candidiasis. Do not swallow. 3 each 1 02/04/20 25 Active glucose blood test strip Use as instructed 100 each 11 02/04/20 25 2025 Active lisinopriL (PRINIVIL,ZEST RIL) 5 mg tablet Take 1 tablet (5 mg total) by mouth 1 (one) time each day. 90 tablet 1 02/04/20 25 Active simvastatin (ZOCOR) 40 mg tablet Take 1 tablet (40 mg total) by mouth at bedtime. at bedtime. 90 tablet 1 02/04/20 25 Active tiZANidine (ZANAFLEX) 4 mg tablet TAKE 1 TABLET(4 MG) BY MOUTH TWICE DAILY WITH MEALS 60 tablet 4 02/04/20 25 Active fluticasone-um eclidinium-gaye anterol (Trelegy Ellipta) 100-62.5-25 mcg inhaler Inhale 1 Puff into the lungs daily. 01/10/20 24 2024 Discontinued ipratropium-al buteroL (COMBIVENT RESPIMAT) 20-100 mcg/actuation inhaler Inhale by mouth. Inhale 1 Puff into the lungs 4 times daily. - Inhalation 2024 Discontinued(R eorder) loratadine (CLARITIN) 10 mg tablet TAKE 1 TABLET BY MOUTH EVERY DAY NEEDED FOR ALLERGIES 90 tablet 1 08/02/19 25 2024 Discontinued lisinopriL (PRINIVIL,ZEST RIL) 5 mg tablet TAKE 1 TABLET BY MOUTH DAILY 90 tablet 1 09/07/19 25 2024 Discontinued(R eorder) simvastatin (ZOCOR) 40 mg tablet TAKE 1 TABLET BY MOUTH AT BEDTIME 90 tablet 1 09/27/19 25 2024 Discontinued(R eorder) tiZANidine (ZANAFLEX) 4 mg tablet TAKE 1 TABLET(4 MG) BY MOUTH TWICE DAILY WITH MEALS 60 tablet 4 10/01/19 25 2024 Discontinued(R eorder) fluticasone-um eclidinium-gaye anterol (Trelegy Ellipta) 100-62.5-25 mcg inhaler INHALE 1 PUFF INTO THE LUNGS DAILY 180 each 3 01/10/20 25 2024 Discontinued(R eorder) ipratropium-al buteroL (COMBIVENT RESPIMAT) 20-100 mcg/actuation inhaler Inhale 1 puff by mouth 4 (four) times a day. Inhale 1 Puff into the lungs 4 times daily. - Inhalation 3 each 1 02/04/20 25 2024 Discontinued Active Problems Problem Noted Date Diagnosed Date Neurogenic bladder 07/21/2021 Overview (05/21/2024): Due to underlining diabetes. Follows with [facility]. UDS significant for incomplete bladder emptying and decreased urine flow. No evidence of bladder hyperactivity. Follows on a 6-month basis. Rheumatoid factor positive 06/03/2021 Overview (05/21/2024): Likely false positive, neg ccp, normal acute phase reactants. Osteoarthritis of both knees 11/14/2020 Thyroid nodule 10/23/2020 Essential hypertension 10/08/2020 Osteopenia 09/18/2020 Overview (05/21/2024): DXA 08/2020: Lumbar spine t score 0.3 Hip -2.0 COPD with asthma ([facility] V24, [facility] V28) 07/27 Obstructive sleep apnea 08/11/2020 Overview (05/21/2024): [facility] Home Sleep Apnea Test: Date 08/03/2020; Wt [...] mellitus type 2, co ntrolled, without complications ([facility] V24, [facility] V28) 06/09/2016 Overview (05/21/2024): HA1c of 8.6% at [facility] [place] Apr 2016 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 Fenestration [...] Encounters Date Type Department Care Team Description 02/05/2025 Telephone Adult Medicine [address] [phone] Chato Romero MD pt 1 ([facility] ) 02/03/2025 4:00 PM EDT Office Visit Adult Medicine [address] [phone] Chato Romero MD Controlled type 2 diabetes mellitus without complication, without long-term current use of insulin ([facility] V24, [facility] V28) (Primary Dx); Essential hypertension; Encounter for long-term (current) use of medications; Pure hypercholesterolemia ; Lower extremity edema; COPD with asthma (CMS/HCC V24, CMS/HCC V28) 02/03/2025 Telephone Adult Medicine [address] [phone] Chato Romero MD pt1 (Podiatry - Dr Nirmal Siegel ) 01/03/2025 12:30 PM EDT Treatment [address] [phone] Jac Gifford, PT Bilateral chronic knee pain (Primary Dx) 01/01/2025 Telephone Adult Medicine [address] [phone] Chato Romero MD PT-1 12/30/2024 Telephone Pulmonolgy [address] [phone] Hilda Díaz NP Med Refill 12/19/2024 2:30 PM EDT Treatment [address] [phone] Desmond Garcia, ACTUARIAL TECHNICIAN Bilateral chronic knee pain (Primary Dx) 12/12/2024 2:00 PM EDT Treatment [address] [phone] Jac Gifford, PT Bilateral chronic knee pain (Primary Dx) 12/09/2024 1:00 PM EDT Office Visit Adult [address] [phone] Tasha Cintron NP Fall, initial encounter (Primary Dx); Rib contusion, right, initial encounter; COPD with asthma (CMS/HCC V24, CMS/HCC V28); Bilateral chronic knee pain; Fibromyalgia 12/03/2024 Telephone Adult Medicine [address] [phone] Chato Romero MD Fall 11/30/2024 7:46 PM EDT - 12/01/2024 1:02 AM EDT Emergency [facility] Emergency [address] [place] [phone] Aissatou Hsieh MD Fall, initial encounter (Primary Dx); Rib contusion, right, initial encounter Discharge Disposition: Home or Self Care 11/11/2024 3:00 PM EDT Treatment [address] [phone] Jac Gifford, PT Bilateral chronic [...] Sees Dr. 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 DX:Cyst of pituitary gland (HCC) Family history of cancer 07/18/2014 DX:Fami ly history of cancer COPD (chronic obstructive pu lmonary disease) ([facility] V24, [facility] V28) DX:COPD (chronic o bstructive pulmonary disease) ([facility]) Thyroid nodule DX:Thyroid nodul e Acute pancreatitis 08/05/2019 DX:Acute panc reatitis; COMMENT: Admitted [facility] 06/29/2019 Essential hypertension 10/08/2020 Family History [...] Sign Reading Time Taken Comments Blood Pressure 113/69 02/03/2025 3:28 PM EDT Pulse 87 02/03/2025 3:28 PM EDT Temperature 36.2 C (97.2 F) 02/03/2025 3:28 PM EDT Respiratory Rate 18 02/03/2025 3:28 PM EDT Oxygen Saturation 93% 02/03/2025 3:28 PM EDT Inhaled Oxygen Concentration - - Weight 109 kg (240 lb 8 oz) 02/03/2025 3:28 PM E DT Height 162.6 cm (5' 4 ) 02/03/2025 3:28 PM EDT Body Mass Index 41.28 02/03/2025 3:28 PM EDT Plan of Treatment Upcoming Encounters Date Type Department Care Team (Late st Contact Info) Description 02/10/2025 2:45 PM EDT Office Visit Pulmonolgy - [place] [address] [facility] [address] [place] [phone] Hilda Díaz NP [address] [facility] [address] [place] [address] 04/04/2025 1:30 PM EDT Appointment Radiology Department - [address] [phone] 08/19/2025 3:45 PM EST Office Visit Adult Medicine [address] [phone] Chato Romero MD [address] [place] [phone] Health Maintenance Due Date Last Done Comments Pneumococcal Vaccine: 50+ Years (1 of 2 - PCV) 1974 Zoster Vaccines (1 of 2) 2005 RSV Immunization Adult Patients (1 - Risk 60-74 years 1-dose series) 2015 Colorectal Cancer Screening: FIT-DNA (Cologuard) 06/04/2022 Social Influencers of Health Screening 06/04/2022 DTaP,Tdap,and Td Vaccines (3 - Td or Tdap) 02/15/2023 02/15/2013, 11/04/2002 COVID-19 Vaccine ( season) 2024 06/20/2021, 12/17/2020, 11/26/2020 Depression Screening [...] 03/21/20, 03/21/2024, 10/08/2020 Cholesterol Screening (Lipid Panel) 02/03/2030 02/03/2025, 01/02/2024, 01/02/2024 Osteoporosis Screening (Bone Density Screening) [...] Procedure Name Priority Date/Time Associated Diagnosis Comments LIPID PANEL WITH REFLEX TO DIRECT LDL Routine 02/03/2025 4:11 PM EDT Pure hypercholesterolemia ASPARTATE AMINOTRANSFERASE Routine 02/03/2025 4:11 PM EDT Encounter for long-term (current) use of medications ALANINE AMINOTRANSFERASE Routine 02/03/2025 4:11 PM EDT Encounter for long-term (current) use of medications ECG ANNOTATED 12/04/2024 CT CERVICAL SPINE WO CONTRAST STAT 11/30/2024 11:[address] HEAD WO CONTRAST STAT 11/30/2024 11:[address] CHEST WO CONTRAST STAT 11/30/2024 11:09 PM EDT POCT GLUCOSE BLOOD Routine 11/30/2024 10:39 PM EDT XR HIP 2-3 VIEWS RIGHT STAT 8:39 PM EDT XR KNEE 4+ VIEWS RIGHT STAT 8:39 PM EDT XR RIBS W CHEST [...] RATIO Routine 01/02/2024 HEMOGLOBIN A1C Routine 01/02/2024 DEPRESSION SCREENING Routine 12/29/2023 COLONOSCOPY Routine 08/22/2023 FALLS RISK ASSESSMENT Routine 07/20/2023 DXA BONE DENSITY STUDY 1+ SITS AXIAL SKEL Routine 09/16/2020 3:18 PM EDT Unspecified menopausal and perimenopausal disorder HEPATITIS C SCREENING Routine 01/08/2019 from Last 3 Months or Most Recently Relevant to Health Maintenance Results * (ABNORMAL) Lipid panel with reflex to direct LDL (02/03/2025 4:11 PM EDT) Cholesterol 236(H) 0 - 200 mg/dL LAB CHEMISTRY METHOD 02/03/2025 8:07 PM [facility] Triglycerides 220(H) 0 - 150 mg/dL LAB CHEMISTRY METHOD 02/03/2025 8:07 PM [facility] HDL 72 >=40 mg/dL LAB CHEMISTRY METHOD 02/03/2025 8:07 PM [facility] LDL Calculated 120(H) 0 - 100 mg/dL LAB CHEMISTRY METHOD 02/03/2025 8:07 PM [facility] Comment:Estimated LDL Calcul ated using equation: Total cholesterol - HDL cholesterol - (Triglycerides/5) VLDL Cholesterol Jan 44 mg/dL LAB CHEMISTRY METHOD 02/03/2025 8:07 PM [facility] Non HDL Chol. (LDL+VLDL) 164(H) <145 mg/dL LAB CHEMISTRY METHOD 02/03/2025 8:07 PM [facility] Chol/HDL Ratio 3.3 0.0 - 4.4 LAB CHEMISTRY METHOD 02/03/2025 8:07 PM [facility] Blood Venous blood specimen / Unknown Venipuncture / Unknown 02/03/2025 4:11 PM EDT 02/03/2025 4:11 PM EDT us Chato Romero MD LAB BLOOD ORDERABLES Final Resu lt Performing Organization Address [facility]/ZIP Co de Phone Number [facility] [address] [place] [address], [place] [phone] * Alanine aminotransferase (02/03/2025 4:11 PM EDT) ALT (SGPT) 26 10 - 60 unit/L LAB CHEMISTRY METHOD 02/03/2025 8:07 PM EDT [facility] Blood Venous blood specimen / Unknown Venipuncture / Unknown 02/03/2025 4:11 PM EDT 02/03/2025 4:11 PM EDT us Chato Romero MD LAB BLOOD ORDERABLES Final Resu lt Performing Organization Address [facility] Co de Phone Number [facility] [address] [place] [address], [place] [phone] * Aspartate aminotransferase (02/03/2025 4:11 PM EDT) AST (SGOT) 16 10 - 42 unit/L LAB CHEMISTRY METHOD 02/03/2025 8:07 PM EDT [facility] Blood Venous blood specimen / Unknown Venipuncture / Unknown 02/03/2025 4:11 PM EDT 02/03/2025 4:11 PM EDT us Chato Romero MD LAB BLOOD ORDERABLES Final Resu lt Performing Organization Address [facility]/ZIP Co de Phone Number [facility] [address] [place] [address], [place] [phone] * ECG-Annotated (12/04/2024) us Provider Onbase MD [...] by: Seth Monsivais MD on 12/01/2024 00:10:[address] PROCEDURES Final Re sult * (ABNORMAL) POCT Glucose, blood (11/30/2024 10:39 PM EDT) Glucose POCT 111(H) 70 - 100 mg/dL 11/30/2024 10:40 PM EDT [facility] Blood Capillary blood specimen / Unknown 11/30/2024 10:39 PM EDT 11/30/2024 10:41 PM EDT Aissatou Hsieh MD LAB POINT OF CARE TE ST DOCKED DEVICE UNSOLICITED RESULTS Final Result [facility] [address] [place] [address], [place] [phone] * XR Knee 4+ Views Right (11/30/2024 [...] Signed Date: 12/01/2024 01:03 ET Workstation ID: [id number] Transcribed By: Self Edit Transcribed Date: 12/01/2024 [...] Signed Date: 12/01/2024 01:03 ET Workstation ID: [id number] Transcribed By: Self Edit Transcribed Date: 12/01/2024 [...] Signed Date: 12/01/2024 01:02 ET Workstation ID: [id number] Transcribed By: Self Edit Transcribed Date: 12/01/2024 [...] Signed Date: 12/01/2024 01:02 ET Workstation ID: [id number] Transcribed By: Self Edit Transcribed Date: 12/01/2024 [...] Signed Date: 12/01/2024 01:05 ET Workstation ID: [id number] Transcribed By: Self Edit Transcribed Date: 12/01/2024 [...] Signed Date: 12/01/2024 01:05 ET Workstation ID: [id number] Transcribed By: Self Edit Transcribed Date: 12/01/2024 01:03 ET Aissatou Hsieh MD IMG XR PROCEDURES Final Result * (ABNORMAL) CBC auto differential (11/30/2024 8:05 PM EDT) Pathologist [facility] WBC 6.5 4.8 - 10.8 K/mcL LAB HEMETOLOGY METHOD 11/30/2024 8:35 PM EDT [facility] RBC 4.40 3.80 - 4.80 M/mcL LAB HEMETOLOGY METHOD 11/30/2024 8:35 PM EDT [facility] Hemoglobin 12.3 11.5 - 16.0 g/dL LAB HEMETOLOGY METHOD 11/30/2024 8:35 PM EDT [facility] Hematocrit 37.6 35.0 - 47.0 % LAB HEMETOLOGY METHOD 11/30/2024 8:35 PM EDT [facility] MCV 85.8 79.0 - 98.0 FL LAB HEMETOLOGY METHOD 11/30/2024 8:35 PM EDT [facility] MCH 28.1 27.0 - 32.0 pcg LAB HEMETOLOGY METHOD 11/30/2024 8:35 PM EDT [facility] MCHC 32.7 32.0 - 37.0 g/dL LAB HEMETOLOGY METHOD 11/30/2024 8:35 PM EDT [facility] RDW 12.4 11.0 - 15.0 % LAB HEMETOLOGY METHOD 11/30/2024 8:35 PM EDT [facility] Platelets 196 130 - 400 K/mcL LAB HEMETOLOGY METHOD 11/30/2024 8:35 PM EDT [facility] MPV 9.8 7.0 - 11.0 FL LAB HEMETOLOGY METHOD 11/30/2024 8:35 PM EDT [facility] NRBC 0.0 <1.0 % LAB HEMETOLOGY METHOD 11/30/2024 8:35 PM EDT [facility] NRBC Absolute 0.00 <0.10 K/mcL LAB HEMETOLOGY METHOD 11/30/2024 8:35 PM EDT [facility] Neutrophils Relative 62.3 % LAB HEMETOLOGY METHOD 11/30/2024 8:35 PM EDT [facility] Lymphocytes Relative 20.6 % LAB HEMETOLOGY METHOD 11/30/2024 8:35 PM EDT [facility] Monocytes Relative 11.1 % LAB HEMETOLOGY METHOD 11/30/2024 8:35 PM EDT [facility] Eosinophils Relative 4.3 % LAB HEMETOLOGY METHOD 11/30/2024 8:35 PM EDT [facility] Basophils Relative 0.8 % LAB HEMETOLOGY METHOD 11/30/2024 8:35 PM EDT [facility] Immature Granulocytes Relative 0.9 % LAB HEMETOLOGY METHOD 11/30/2024 8:35 PM T [facility] Neutrophils Absolute 4.05 1.50 - 7.00 K/mcL LAB HEMETOLOGY METHOD 11/30/2024 8:35 PM EDT [facility] Lymphocytes Absolute 1.34 1.00 - 5.00 K/mcL LAB HEMETOLOGY METHOD 11/30/2024 8:35 PM EDT [facility] Monocytes Absolute 0.72 0.20 - 1.00 K/mcL LAB HEMETOLOGY METHOD 11/30/2024 8:35 PM EDT [facility] Eosinophils Absolute 0.28 0.00 - 0.50 K/mcL LAB HEMETOLOGY METHOD 11/30/2024 8:35 PM EDT [facility] Basophils Absolute 0.05 0.00 - 0.20 K/mcL LAB HEMETOLOGY METHOD 11/30/2024 8:35 PM EDT [facility] Immature Granulocytes Absolute 0.06(H) 0.00 - 0.03 K/mcL LAB HEMETOLOGY METHOD 11/30/2024 8:35 PM EDT [facility] Blood Venous blood specimen / Unknown Venipuncture / Unknown 11/30/2024 8:05 PM EDT 11/30/2024 8:31 PM EDT us Aissatou Hsieh MD LAB BLOOD ORDERABLES Final Resul t [facility] [address] [place] [address], * (ABNORMAL) Basic metabolic panel (11/30/2024 8:05 PM EDT) Sodium 137 133 - 145 mmol/L LAB CHEMISTRY METHOD 11/30/2024 8:55 PM [facility] Potassium 3.9 3.5 - 5.5 mmol/L LAB CHEMISTRY METHOD 11/30/2024 8:55 PM [facility] Chloride 103 96 - 110 mmol/L LAB CHEMISTRY METHOD 11/30/2024 8:55 PM [facility] CO2 28 21 - 32 mmol/L LAB CHEMISTRY METHOD 11/30/2024 8:55 PM [facility] Anion Gap 6 3 - 11 LAB CHEMISTRY METHOD 11/30/2024 8:55 PM [facility] Glucose 165(H) 70 - 100 mg/dL LAB CHEMISTRY METHOD 11/30/2024 8:55 PM [facility] BUN 16 5 - 25 mg/dL LAB CHEMISTRY METHOD 11/30/2024 8:55 PM [facility] Creatinine 0.88 0.50 - 1.10 mg/dL LAB CHEMISTRY METHOD 11/30/2024 8:55 PM EDT [facility] eGFR 71 >=60 mL/min/1. 73m2 LAB CHEMISTRY METHOD 11/30/2024 8:55 PM EDT [facility] Comment:Calculation based on the Chronic Kidney Disease Epidemiology Collaboration (CKD-EPI) equation refit without adjustment for race. BUN/Creatinine Ratio 18.2 LAB CHEMISTRY METHOD 11/30/2024 8:55 PM EDT [facility] Calcium 9.9 8.5 - 10.5 mg/dL LAB CHEMISTRY METHOD 11/30/2024 8:55 PM EDT [facility] Blood Venous blood specimen / Unknown Venipuncture / Unknown 11/30/2024 8:05 PM EDT 11/30/2024 8:31 PM EDT us Aissatou Hsieh MD LAB BLOOD ORDERABLES Final Resul t [facility] [address] [place] [address], * SCREENING MAMMOGRAPHY BI 2-VIEW BREAST INC [...] evidence of malignancy. BI-RADS 1 - negative [address] [address] Procedure Note Lucinda Carroll MD - 04/10/2024 [...] evidence of malignancy. BI-RADS 1 - negative [address] [address] Result [facility] Chato Romero MD IMG XR PROCEDURES Final Result * Diabetes Foot Exam (01/24/2024) [facility] Diabetes: Annual Foot Exam Abstracted Result [facility] Provider HEALTH MAINTENANCE Final Result * Diabetes Eye Exam (01/24/2024) [facility] Diabetes: Annual Retina Eye Exam Abstracted Result [facility] Provider HEALTH MAINTENANCE Final Result * Urine Albumin Creatinine Ratio (01/02/2024) [facility] Urine Albumin Creatinine Ratio Abstracted Result [facility] HEALTH MAINTENANCE Final Result * (ABNORMAL) Hemoglobin A1c (01/02/2024) [facility] Hemoglobin A1C 5.9(A) >=6.5 % Blood Venous blood specimen / Unknown Result [facility] Provider LAB BLOOD ORDERABLES Steph l Result * Depression Screening (12/29/2023) [facility] Depression Screening Abstracted [facility] HEALTH MAINTENANCE Final Result * Colonoscopy (08/22/2023) [facility] Colonoscopy No interpreta tion,abstr acted Anatomical Region Laterality Modality Other [facility] Final Result * Falls Risk Assessment (07/20/2023) [facility] Falls Risk Assessment Abstracted [facility] HEALTH [facility] Final Result * DXA BONE DENSITY STUDY [...] (World Health Organization Fracture Risk Assessment) The [facility] Department of Internal Medicine recommends using National [...] alternative screening schedule based on arjun Espinal., [facility] July 14, 2011 for patients with osteopenia [...] (World Health Organization Fracture Risk Assessment) The [facility] Department of Internal Medicine recommendsusing National Osteoporosis [...] and higher), BMD testingevery 15 years Jessi MCGARRY IM DXA PROCEDURES Final Result * Hepatitis C Screening (01/08/2019) [facility] Hepatitis C Screening Abstracted Historical Provider HEALTH MAINTENANCE Final Result from Last 3 Months or Most Recently Relevant to Health Maintenance Insurance MEDICARE [place]ICA[place] - [place] Care Teams Drain Tiler Relationship Specialty Start Date End Date Chato Romero MD [address] [place] [id number] PCP - General Internal Medicine 04/13/21
--- OUTSIDE RECORDS SUMMARY | 2025-02-07 13:13 | XMS_ITS | Clinical Summary ---
Author Organization [facility] Address [address] [place] [address] Care Team Providers Care Cordwood Cutter Helper Name Role Phone Betty Cunha DO Primary [...] age to complete this topic Care Teams Cordwood Cutter Helper Relationship Specialty Start Date End Date Betty Cunha DO PCP - General Driver Utility Worker 12/04/20
== END 2025-02-07 13:11 | disposition home or self-care (01) ==
LOC: HO.MRI 13:10
PROVIDERS: PCP Internal Medicine; Visit Provider Psychiatry & Neurology Neurology
DX: G93.0 Cerebral cysts (principal)
CPT/HCPCS: 70551

== ENCOUNTER → 2025-02-07 13:12 | Outpatient (BNV) | payer MEDICARE, MEDICAID, SELFPAY | PROVIDERS: PCP Internal Medicine; Visit Provider Specialist | DX: G93.0 Cerebral cysts (principal) | CPT/HCPCS: 70551 ==

== ENCOUNTER → 2025-03-28 19:30 | Outpatient (REF) | payer MEDICARE, MEDICAID, SELFPAY ==
--- OUTSIDE RECORDS SUMMARY | 2025-03-28 21:50 | XMS_ITS ---
Author Organization [address] Address [address] [place] [address] Phone Care Team Providers Care Flight Test Engineer Name Role Phone Chato Romero MD Primary Care Provider [phone] [facility] - Transportation Status:Ongoing (Active) Start date:02/20/2025 Enrollment date:02/20/2025 Enrollment reason:Referred by Care Team Related social drivers of health:Transportation Related program episode:Community Health Worker Program (Active) Overview Community Health Worker Program - Transportation Service Episode Case Team Name Relationship Phone Darrel Bernstein(Responsible Staff) Community Health Worker Continued Care and Services Coordination
--- OUTSIDE RECORDS SUMMARY | 2025-03-28 21:50 | XMS_ITS | Clinical Summary ---
Author Organization [address] Address [address] [place] [phone] Phone Care Team Providers Care Adjunct Instructor In Economics Name Role Phone Chato Romero MD Primary Care Provider [phone] Allergies Active Allergy Reactions Criticality Noted Date [...] by mouth at bedtime. 10/09/19 21 Active FreeStyle Lancets 28 gauge lancets USE [...] WEEK 120 mL 5 09/18/19 25 Active fluticasone propionate (FLONASE) 50 mcg/actuation nasal sprayIndicatio ns:Allergic rhinitis, unspecified seasonality, unspecified trigger SHAKE LIQUID AND USE 2 SPRAYS IN EACH NOSTRIL DAILY 48 g 3 09/28/19 25 Active omeprazole (PriLOSEC) [address] capsule TAKE 1 CAPSULE(20 MG) BY MOUTH 1 TIME EACH DAY 90 capsule 1 10/15/19 25 Active inhalational spacing device inhaler Used as directed. 1 each 12/10/19 25 026 Active blood sugar diagnostic (FreeStyle Lite Strips) [...] Respimat) 20-100 mcg/actuation inhalerIndicat ions:COPD with asthma ([facility] V24, [facility] V28) INHALE 1 PUFF INTO THE LUNGS FOUR TIMES DAILY 12 g 3 02/04/20 25 026 Active fluticasone-um eclidinium-gaye anterol (Trelegy Ellipta) 100-62.5-25 mcg inhaler Inhale 1 puff (100 mcg total) by mouth 1 (one) time each day. Rinse mouth with water after use to reduce aftertaste and incidence of candidiasis. Do not swallow. 3 each 1 02/04/20 25 Active glucose blood test strip Use as instructed 100 each 02/04/20 25 026 Active lisinopriL (PRINIVIL,ZEST RIL) 5 mg tablet [...] MEALS 60 tablet 4 02/04/20 25 Active blood sugar diagnostic (FreeStyle Lite Strips) test strip Use as instructed 100 each 1 02/12/20 25 026 Active albuterol 2.5 mg /3 mL (0.083 %) nebulizer solutionIndica tions:COPD with asthma ([facility] V24, [facility] V28) Take 3 mL (2.5 mg total) by nebulization every 4 (four) hours if needed for wheezing. USE 1 VIAL VIA NEBULIZER EVERY 4 HOURS NEEDED FOR WHEEZING 100 mL 2 02/11/20 25 Active montelukast (SINGULAIR) 10 mg tabletIndicati ons:COPD with asthma (CMS/[facility] V24, CMS/HCC V28) Take 1 tablet (10 mg total) by mouth at bedtime. at bedtime. 90 tablet 3 02/11/20 25 026 Active azelastine (ASTELIN) 137 mcg (0.1 %) nasal sprayIndicatio ns:Non-seasona l allergic rhinitis due to fungal spores USE 2 SPRAYS IN EACH NOSTRIL TWICE DAILY DIRECTED 30 mL 2 03/17/20 25 Active meclizine (ANTIVERT) 25 mg tablet TAKE 1 TABLET BY MOUTH THREE TIMES DAILY NEEDED FOR DIZZINESS 270 tablet 1 03/18/20 25 Active cholecalcifero l (VITAMIN D-3) 50 mcg (2,000 unit) capsule TAKE 1 CAPSULE BY MOUTH EVERY DAY 90 capsule 1 03/21/20 25 Active meclizine (ANTIVERT) 25 mg tablet TAKE 1 TABLET BY MOUTH THREE TIMES DAILY NEEDED FOR DIZZINESS 04/23/20 24 025 Discontinued cholecalcifero l (VITAMIN D-3) 50 mcg (2,000 unit) capsule TAKE 1 CAPSULE BY MOUTH EVERY DAY 90 capsule 1 10/01/19 25 025 Discontinued azelastine (ASTELIN) 137 mcg (0.1 %) nasal sprayIndicatio ns:Non-seasona l allergic rhinitis due to fungal spores USE 2 SPRAYS IN EACH NOSTRIL TWICE DAILY DIRECTED 30 mL 2 12/10/19 25 025 Discontinued Active Problems Problem Noted Date Diagnosed Date Neurogenic bladder 07/21/2021 Overview (05/21/2024): Due to underlining diabetes. Follows with [facility] urology. 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 Fenestration [...] Encounters Date Type Department Care Team Description 03/13/2025 Telephone Adult Medicine [address] [phone] Chato Romero MD 03/13/2025 Telephone Adult Medicine [address] [phone] Chato Romero MD 03/07/2025 Telephone Pulmonology [address] [phone] Hilda Díaz NP 02/28/2025 2:00 PM EDT Ancillary Procedure Pulmonology - [address] [phone] COPD with asthma (CMS/HCC V24, CMS/HCC V28) 02/25/2025 Telephone Pulmonology [address] [phone] Hilda Díaz NP 02/20/2025 Telephone [facility] [address] [place] [phone] Darrel Bernstein 02/18/2025 Referral Triage [facility] [address] [place] [phone] Shira Pardo 02/14/2025 Telephone Adult Medicine - [address] [phone] Katie Grewal PharmD 02/14/2025 Telephone Adult Medicine [address] [phone] Venus Pepe RN 02/10/2025 2:45 PM EDT Office Visit Pulmonology [facility] [address] [facility] [address] [place] [phone] Hilda Díaz NP COPD with asthma ([facility] V24, [facility] V28) (Primary Dx) 02/05/2025 Telephone Adult Medicine [address] [phone] Chato Romero MD 02/03/2025 4:00 PM EDT Office Visit Adult [address] [phone] Chato Romero MD Controlled type 2 diabetes mellitus without complication, without long-term current use of insulin ([facility] V24, [facility] V28) (Primary Dx); Essential hypertension; Encounter for long-term (current) use of medications; Pure hypercholesterolem ia; Lower extremity edema; COPD with asthma ([facility] V24, [facility] V28) 02/03/2025 Telephone Adult Medicine [address] [phone] Chato Romero MD 01/03/2025 12:30 PM EDT Treatment [facility] 175 [facility] [address] [place] [phone] Jac Gifford, PT Bilateral chronic knee pain (Primary Dx) 01/01/2025 Telephone Adult Medicine [address] [phone] Chato Romero MD 12/30/2024 Telephone Pulmonology [facility] [address] [facility] [address] [place] [phone] Hilda Díaz NP from Last 3 Months Immunizations Immunization Administration Dates Next Due Influenza Quadravalent, 0.5m [...] Date Site/Laterality Comments OTHER SURGICAL HISTORY PROCEDURE: [place] LAPAROSCOPY W/LYSIS OF ADHESIONS COLONOSCOPY 11/07/06 PROCEDURE: [...] Sees Dr. 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 DX:Cyst of pituitary gland (HCC) Family history of cancer 07/18/2014 DX:Fami ly history of cancer COPD (chronic obstructive pu lmonary disease) ([facility] V24, [facility] V28) DX:COPD (chronic o bstructive pulmonary disease) ([facility]) Thyroid nodule DX:Thyroid nodul e Acute pancreatitis 08/05/2019 DX:Acute panc reatitis; COMMENT: Admitted [facility] 06/29/2019 Essential hypertension 10/08/2020 Family History Medical [...] drink = 0.6 oz pur e alcohol) Housing Instability Answer Date Recorde d Are you worried that in the next 2 months you may not have stable housing? No 02/14/2025 Financial Risk Answer Date Recorded How hard is it for you to pa y for the very basics like food, housing, medical care, and air conditioning / heating? Somewhat hard 02/14/2025 Transportation Answer Date Recorded Has the lack of transportati on kept you from meetings, work, or from getting things needed for daily living? Yes Has the lack of transportati on kept you from medical appointments or from getting medications? No 02/14/2025 Social Isolation Answer Date Recorded How often do you feel lonely or isolated from those around you? Sometimes 02/14/2025 Food Risk Answer Date Recorded Within the past 12 months we worried whether our food would run out before we got money to buy more. Never true 02/14/2025 Within the past 12 months th e food we bought just didn't last and we didn't have money to get more. Never true 02/14/2025 Living Situation Answer Date Recorded What is your living situation? Unrecognized valu e 02/14/2025 Comments Unknown Sex and Gender Information Value Date Recorded Sex Assigned at Female 11/30/2024 8:38 PM EDT Legal Sex Female 9:30 PM EST Gender Identity Female 11/30/2024 8:38 PM EDT Sexual Orientation Straight 11/30/2024 8: 38 PM EDT Obstetrics History Last Filed Vital Signs Vital Sign Reading Time Taken Comments Blood Pressure 134/80 02/10/2025 2:44 PM EDT Pulse 84 02/10/2025 2:44 PM EDT Temperature 35.6 C (96 F) 02/10/2025 2:44 PM EDT Respiratory Rate 18 02/10/2025 2:44 PM EDT Oxygen Saturation 91% 02/10/2025 2:44 PM EDT Inhaled Oxygen Concentration - - Weight 109 kg (240 lb 3.2 oz) 02/10/2025 2:44 PM EDT Height 165.1 cm (5' 5 ) 02/10/2025 2:44 PM EDT Body Mass Index 39.97 02/10/2025 2:44 PM EDT Plan of Treatment Upcoming Encounters Date Type Department Care Team (Late st Contact Info) Description 04/04/2025 1:30 PM EDT Appointment Radiology Department - [address] [phone] 04/15/2025 1:50 PM EDT Office Visit Pulmonology - [address] [place] [phone] Hilda Díaz, ENVIRONMENTAL COORDINATOR [address] [place] [phone] 04/17/2025 10:00 AM EDT Office Visit Adult Medicine [address] [phone] Chato Romero MD [address] [place] [address] 08/19/2025 3:45 PM EST Office Visit Adult Medicine [address] [phone] Chato Romero MD [address] [place] [address] Health Maintenance Due Date Last Done Comments Pneumococcal Vaccine: 50+ Years (1 of 2 - PCV) 1974 Zoster Vaccines (1 of 2) 2005 RSV Immunization Adult Patients (1 - Risk 60-74 years 1-dose series) 2015 Colorectal Cancer Screening: FIT-DNA (Cologuard) 06/04/2022 DTaP,Tdap,and Td Vaccines (3 - Td or Tdap) 02/15/2023 02/15/2013, 11/04/2002 Depression Screening 06/26/2024 12/29/2023 Diabetes: Blood Sugar Control Test (HGBA1C) 07/04/2024 01/02/2024, 01/02/2024 Falls Risk Assessment 07/20/2024 07/20/2023 Medicare Annual Wellness Visit 12/28/2024 12/29/2023 Diabetes: Annual Urine Albumin-Creatinine Ratio (uACR) 01/01/2025 01/02/2024 Diabetes: Annual Foot Exam 01/23/2025 01/24/2024 Diabetes: Annual Retina Eye Exam 01/23/2025 01/24/2024 COVID-19 Vaccine ( season) 2025 06/20/2021, 12/17/2020, 11/26/2020 Influenza Vaccine (#1) 2025 , 04/16/2023, 05/30/2022, Additional history exists Diabetes: Annual GFR (Glomerular Filtration Rate) 11/30/2025 11/30/2024, 01/02/2024, 01/02/2024 Hypertension/CHF/CAD Annual BMP Blood Test 11/30/2025 11/30/2024, 01/02/2024, 01/02/2024 Social Influencers of Health Screening 02/14/2026 02/14/2025 Breast Cancer Screening 03/21/2026 03/21/20, 03/21/2024, 10/08/2020 [...] on patient's age to complete this topic Goals Goal Patient Goal Type Associated Problems Recent Progress Patient-Stated? Author <enter goal here> General Yes Sridevi Mims, RN Keep patient safe at home General No Sridevi Mims, RN Note: 02/14/25. Pt is in need of nebulizer solution and tubing. She also expressed needs for transportation, energy assistance, and housing Also requesting an ioncentive spirometer 03/28/25 pt still in need of nebulizer tubing and a walker. Will resend request Procedures Procedure Name Priority Date/Time Associated Diagnosis Comments PULMONARY FUNCTION TESTING Routine 02/28/2025 3:24 PM EDT COPD with asthma ([facility] V24, [facility] V28) HOME SLEEP TEST Routine 02/10/2025 9:00 AM EDT POLYSOMNOGRAM WITH CPAP Routine 02/10/2025 8:56 AM EDT LIPID PANEL WITH REFLEX TO DIRECT LDL Routine 02/03/2025 4:11 PM EDT Pure hypercholesterolemia ASPARTATE AMINOTRANSFERASE Routine 02/03/2025 4:11 PM EDT Encounter for long-term (current) use of medications ALANINE AMINOTRANSFERASE Routine 02/03/2025 4:11 PM EDT Encounter for long-term (current) use of medications BASIC METABOLIC PANEL STAT 11/30/2024 8:05 PM EDT SCREENING MAMMOGRAPHY [...] Recently Relevant to Health Maintenance Results * Pulmonary function testing: Carbon Monoxide Diffusing Capacity, Spirometry with Bronchodilator, Flow Volume Loop, Maximum Voluntary Ventilation, Spirometry, Vital Capacity Test (02/28/2025 3:24 PM EDT) Impressions Patricia Diaz MD - 02/28/2025 3:24 PM EDT DATE OF SERVICE: 02/28/25 SPIROMETRY: FEV1 is 57 % predicted and an FVC is 51 % predicted. The FEV1/FVC ratio is 112% of normal, no response to bronchodilators noted. LUNG VOLUMES: Total lung capacity (TLC): 75% predicted. Residual volume (RV): 107% predicted RV/TLC ratio is 135% of normal DIFFUSION CAPACITY: DLCO 66% predicted. DlCO/VA 104% of predicted COMPARISONS: INTERPRETATION: This pulmonary function test shows restrictive changes with a normal preserved DLCO/VA ratio. When compared to the last test from March 2023, there has been continued decline in all indexes 6mw Walked six minutes covering (152m/500ft) without Leg Fatigue, Mild SOB Lowest oxygen saturation was 94%. Returned to PFT lab for Rest & Recovery. After 1 min RaSpO2 = 93% HR = 100; After 2 min RaSpO2 = 94% HR = 94. No indication for supplemental Oxygen for activity. Patricia Diaz MD Hilda Díaz ENVIRONMENTAL COORDINATOR PFT ORDERABLES Final R esult * Home sleep test (02/10/2025 9:00 AM EDT) Historical Provider SLEEP CENTER ORDERABLES F inal Result * Polysomnography with PAP (02/10/2025 8:56 AM EDT) [facility] Provider OR SLEEP CENTER ORDERABLES F inal Result * (ABNORMAL) Lipid panel with reflex to direct LDL (02/03/2025 4:11 PM EDT) Cholesterol 236(H) 0 - 200 mg/dL LAB CHEMISTRY METHOD 02/03/2025 8:07 PM [facility] Triglycerides 220(H) 0 - 150 mg/dL LAB CHEMISTRY METHOD 02/03/2025 8:07 PM [facility] HDL 72 >=40 mg/dL LAB CHEMISTRY METHOD 02/03/2025 8:07 PM [facility] LDL Calculated 120(H) 0 - 100 mg/dL LAB CHEMISTRY METHOD 02/03/2025 8:07 PM [facility] Comment:Estimated LDL Calcul ated using equation: Total cholesterol - HDL cholesterol - (Triglycerides/5) VLDL Cholesterol Jan 44 mg/dL LAB CHEMISTRY METHOD 02/03/2025 8:07 PM [facility] Non HDL Chol. (LDL+VLDL) 164(H) <145 mg/dL LAB CHEMISTRY METHOD 02/03/2025 8:07 PM [facility] Chol/HDL Ratio 3.3 0.0 - 4.4 LAB CHEMISTRY METHOD 02/03/2025 8:07 PM EDT [facility] Blood Venous blood specimen / Unknown Venipuncture / Unknown 02/03/2025 4:11 PM EDT 02/03/2025 4:11 PM EDT us Chato Romero MD LAB BLOOD ORDERABLES Final Resu lt Performing Organization Address [facility]/ZIP Co de Phone Number [facility] [address] [place] [address], [place] [phone] * Alanine aminotransferase (02/03/2025 4:11 PM EDT) ALT (SGPT) 26 10 - 60 unit/L LAB CHEMISTRY METHOD 02/03/2025 8:07 PM EDT [facility] Blood Venous blood specimen / Unknown Venipuncture / Unknown 02/03/2025 4:11 PM EDT 02/03/2025 4:11 PM EDT us Chato Romero MD LAB BLOOD ORDERABLES Final Resu lt Performing Organization Address [facility]/ZIP Co de Phone Number [facility] [address] [place] [address], [place] [phone] * Aspartate aminotransferase (02/03/2025 4:11 PM EDT) AST (SGOT) 16 10 - 42 unit/L LAB CHEMISTRY METHOD 02/03/2025 8:07 PM EDT [facility] Blood Venous blood specimen / Unknown Venipuncture / Unknown 02/03/2025 4:11 PM EDT 02/03/2025 4:11 PM EDT us Chato Romero MD LAB BLOOD ORDERABLES Final Resu lt Performing Organization Address City/[facility]/ZIP Co de Phone Number [facility] [address] [place] [address], [place] [phone] * (ABNORMAL) Basic metabolic panel (11/30/2024 8:05 PM EDT) Sodium 137 133 - 145 mmol/L LAB CHEMISTRY METHOD 11/30/2024 8:55 PM [facility] Potassium 3.9 3.5 - 5.5 mmol/L LAB CHEMISTRY METHOD 11/30/2024 8:55 PM [facility] Chloride 103 96 - 110 mmol/L LAB CHEMISTRY METHOD 11/30/2024 8:55 PM [facility] CO2 28 21 - 32 mmol/L LAB CHEMISTRY METHOD 11/30/2024 8:55 PM [facility] Anion Gap 6 3 - 11 LAB CHEMISTRY METHOD 11/30/2024 8:55 PM [facility] Glucose 165(H) 70 - 100 mg/dL LAB CHEMISTRY METHOD 11/30/2024 8:55 PM [facility] BUN 16 5 - 25 mg/dL LAB CHEMISTRY METHOD 11/30/2024 8:55 PM [facility] Creatinine 0.88 0.50 - 1.10 mg/dL LAB CHEMISTRY METHOD 11/30/2024 8:55 PM [facility] eGFR 71 >=60 mL/min/1. 73m2 LAB CHEMISTRY METHOD 11/30/2024 8:55 PM [facility] Comment:Calculation based on the Chronic Kidney Disease Epidemiology Collaboration (CKD-EPI) equation refit without adjustment for race. BUN/Creatinine Ratio 18.2 LAB CHEMISTRY METHOD 11/30/2024 8:55 PM [facility] Calcium 9.9 8.5 - 10.5 mg/dL LAB CHEMISTRY METHOD 11/30/2024 8:55 PM [facility] Blood Venous blood specimen / Unknown Venipuncture / Unknown 11/30/2024 8:05 PM EDT 11/30/2024 8:31 PM EDT us Aissatou Hsieh MD LAB BLOOD ORDERABLES Final Resul t [facility] [address] [place] [address], * SCREENING MAMMOGRAPHY BI 2-VIEW BREAST INC [...] evidence of malignancy. BI-RADS 1 - negative [address] [address] Procedure Note Lucinda Carroll MD - 04/10/2024 [...] evidence of malignancy. BI-RADS 1 - negative [address] [address] [place] [address] Chtao Romero MD IMG XR PROCEDURES Final Result * Diabetes Foot Exam (01/24/2024) [facility] Diabetes: Annual Foot Exam Abstracted Result [facility] Provider HEALTH MAINTENANCE Final Result * Diabetes Eye Exam (01/24/2024) [facility] Diabetes: Annual Retina Eye Exam Abstracted Result [facility] Historical Provider HEALTH MAINTENANCE Final Result * Urine Albumin Creatinine Ratio (01/02/2024) [facility] Urine Albumin Creatinine Ratio Abstracted Result [facility] Provider HEALTH MAINTENANCE Final Result * (ABNORMAL) Hemoglobin A1c (01/02/2024) [facility] Hemoglobin A1C 5.9(A) >=6.5 % Blood Venous blood specimen / Unknown Result [facility] Provider LAB BLOOD ORDERABLES Steph l Result * Depression Screening (12/29/2023) [facility] Depression Screening Abstracted Result [facility] Provider HEALTH MAINTENANCE Final Result * Colonoscopy (08/22/2023) [facility] Colonoscopy No interpreta tion,abstr acted Anatomical Region Laterality Modality Other Result [facility] Provider HEALTH MAINTENANCE Final Result * Falls Risk Assessment (07/20/2023) [facility] Falls Risk Assessment Abstracted Result [facility] Provider HEALTH MAINTENANCE Final Result * DXA BONE [...] (World Health Organization Fracture Risk Assessment) [facility] Department of Internal Medicine recommends using [...] alternative screening schedule based on arjun Espinal., [facility] July 14, 2011 for patients with [...] (World Health Organization Fracture Risk Assessment) [facility] Department of Internal Medicine recommendsusing National [...] alternative screening schedule based on arjun Espinal., [facility] for patients with osteopenia (based on hip BMD T-score) is as follows: * advanced osteopenia (T scores -2.00 to -2.49), BMD testing every year * moderate osteopenia (T scores -1.50 to -1.99), BMD testing every 5years mild osteopenia or normal BMD (T scores -1.50 and higher), BMD testingevery 15 years Jessi LINDQUIST DXA PROCEDURES Final Result * Hepatitis C Screening (01/08/2019) Pathologist [facility] Hepatitis C Screening Abstracted us Historical Provider HEALTH MAINTENANCE Final Result from Last 3 Months or Most Recently Relevant to Health Maintenance Insurance * Guarantor: Glory Osuna Account Type Relation to Patient Date of Phone Billing Address Personal/Family Self [address] [address] MEDICARE [place]ICAID [place] Care Teams Adjunct Instructor In Economics Relationship Specialty Start Date End Date Chato Romero MD [address] [place] [phone] PCP - General Internal Medicine 04/13/21
--- OUTSIDE RECORDS SUMMARY | 2025-03-28 21:51 | XMS_ITS | Encounter Summary ---
Author Organization [facility] Address [address] [place] [address] Care Team Providers Care Software Administrator Name Role Phone Chato Romero MD Primary Care Provider [phone] Encounter Details Date Type Department Care Team (Late st Contact Info) Description 02/18/2025 Referral Triage [facility] Health Worker Program [address] [place] [phone] Shira Pardo Social History Tobacco Use Types Packs/Day Years Used Date Smoking Tobacco: Never Smokeless Tobacco: Never Alcohol Use Standard Drinks/Week Comments No 0 [...] Orientation Straight 11/30/2024 8: 38 PM EDT documented as of this encounter Functional Status * Are you blind or do you have serious difficulty seeing, even when wearing glasses? Answer Date of Assessment Author No 11/30/2024 9:02 PM EDT Patrick Yang RN * Do you have serious difficulty walking or climbing stairs? Answer Date of Assessment Author Yes 11/30/2024 9:02 PM EDT Patrick Yang RN * Do you have serious difficulty dressing or bathing? Answer Date of Assessment Author No 11/30/2024 9:02 PM EDT Patrick Yang RN * Because of a physical, mental, or emotional condition, do you have serious difficulty doing errandsalone such as visiting the doctor? Answer Date of Assessment Author No 11/30/2024 9:02 PM EDT Patrick Yang RN documented as of this encounter Mental Status * Because of a physical, mental, or emotional condition, do you have serious difficulty concentrating, remembering, or making decisions? (5 years old or older) Answer Entry Date Author No 11/30/2024 9:02 PM EDT Patrick Yang RN documented in this encounter Progress Notes * Shira Pardo - 02/18/2025 10:10 AM EDT Priority: Routine Referral triage: Assigned to Edward (CHW) Reason for referral: transportation, energy assistance, housing needs Shira Pardo Community Health Worker (CHW) Pulmonologist Intensivist/Regional documented in this encounter Plan of Treatment Upcoming Encounters Date Type Department Care Team (Late st Contact Info) Description 04/04/2025 1:30 PM EDT Appointment Radiology Department [address] [phone] 04/15/2025 1:50 PM EDT Office Visit Pulmonology - [place] [address] [place] [phone] Hilda Díaz, LOUISE [address] [place] [phone] 04/17/2025 10:00 AM EDT Office Visit Adult [address] [phone] Chato Romero MD [address] [place] [address] 08/19/2025 3:45 PM EST Office Visit Adult [address] [phone] Chato Romero MD [address] [place] [address] documented as of this encounter Goals Goal Patient Goal Type Associated Problems [...] tubing and a walker. Will resend request documented as of this encounter Visit Diagnoses Not on filedocumented in this encounter Care Teams Software Administrator Relationship Specialty Start Date End Date Chato Romero MD [address] [place] [address] PCP - General Internal Medicine 04/13/21 documented as of this encounter
--- OUTSIDE RECORDS SUMMARY | 2025-03-28 21:51 | XMS_ITS ---
Author Organization [address] Address [address] [place] [address] Phone Care Team Providers Care Wet Process Miller Head Name Role Phone Chato Romero MD Primary Care Provider [phone] Community Health Worker Program Status:Ongoing (Active) Start date:02/18/2025 Enrollment date:02/20/2025 Enrollment reason:Referred from clinic Current support & services provided:Adult Related service episodes:CHWP - Transportation (Active) Overview Community Health Worker Program Case Team Name Relationship Phone Darrel Bernstein(Responsible Staff) Community Health Worker Continued Care and Services Coordination
--- OUTSIDE RECORDS SUMMARY | 2025-03-28 21:51 | XMS_ITS ---
Author Organization [facility] [address] [place] [address] Address [address] [place] [address] Phone Care Team Providers Care Inspector Final Assembly Conveyor Line Name Role Phone Chato Romero MD Primary Care Provider [phone] High Risk Care Management Status:Ongoing (Active) Start date:02/04/2025 Enrollment date:02/14/2025 Related social drivers of health:Housing Instability, Food Access & Nutrition, Access to Healthcare, TH Health Literacy, Financial Risk, Transportation, Social Isolation, Food Risk Case Team Name Relationship Phone Sridevi Mims RN(Responsible Staff) Care Reinier meraz Continued Care and Services Coordination
--- OUTSIDE RECORDS SUMMARY | 2025-03-28 21:51 | XMS_ITS | Clinical Summary ---
Author Organization [facility] Address [address] [place] [address] Care Team Providers Care Manager It Security Name Role Phone Betty Cunha DO Primary [...] to complete this topic Care Teams Manager It Security Relationship Specialty Start Date End Date Betty Cunha DO PCP - General Neon Sign Servicer 12/04/20
--- OUTSIDE RECORDS SUMMARY | 2025-03-28 21:51 | XMS_ITS | Encounter Summary ---
Author Organization [facility] Address [address] [place] [address] Care Team Providers Care Lead Portfolio Manager Name Role Phone Chato Romero MD Primary Care Provider [phone] Reason for Visit * Reason Onset Date Comments Provider call back 03/07/2025 Encounter Details Date Type Department Care Team (Late st Contact Info) Description 03/07/2025 Telephone Pulmonology - [place] [address] [facility] [address] [place] [address] Hilda Díaz NP [address] [place] [phone] Social History Tobacco Use Types Packs/Day Years [...] of Assessment Author No 11/30/2024 9:02 PM Patrick Oden RN * Do you have serious difficulty walking or climbing stairs? Answer Date of Assessment Author Yes 11/30/2024 9:02 PM Patrick Oden RN * Do you have serious difficulty dressing or bathing? Answer Date of Assessment Author No 11/30/2024 9:02 PM Patrick Oden RN * Because of a physical, mental, or emotional condition, do you have serious difficulty doing errandsalone such as visiting the doctor? Answer Date of Assessment Author No 11/30/2024 9:02 PM Patrick Oden RN documented as of this encounter Mental Status * Because of a physical, mental, or emotional condition, do you have serious difficulty concentrating, remembering, or making decisions? (5 years old or older) Answer Entry Date Author No 11/30/2024 9:02 PM Patrick Oden RN documented in this encounter Progress Notes * Chato Romero MD - 03/10/2025 10:08 AM EDT It looks like this request came from [facility]? This was not sent by me or my office * Berna Barahona MA - 03/10/2025 9:50 AM EDT Please sent this request Taylor didn't prescribe any of this items * Taylor Ansari - 03/07/2025 1:54 PM EDT Patient called stating that she received a call from the triage nurse regarding a walker and tubingfor a nebulizer. She would like to have whoever called her give her a call back documented in this encounter Plan of Treatment Upcoming Encounters Date Type Department Care Team (Late st Contact Info) Description 04/04/2025 1:30 PM EDT Appointment Radiology Department - [address] [phone] 04/15/2025 1:50 PM EDT Office Visit Pulmonology - [address] [place] [address] Hilda Díaz, LOUISE [address] [place] [address] 04/17/2025 10:00 AM EDT Office Visit Adult Medicine [address] [phone] Chato Romero MD [address] [place] [address] 08/19/2025 3:45 PM EST Office Visit Adult [address] [phone] Chato Romero MD [address] [place] [address] documented as of this encounter Goals Goal [...] on filedocumented in this encounter Care Teams Lead Portfolio Manager Relationship Specialty Start Date End Date Chato Romero MD [address] [place] [phone] PCP - General Internal Medicine 04/13/21 documented as of this encounter
--- OUTSIDE RECORDS SUMMARY | 2025-03-28 21:51 | XMS_ITS | Encounter Summary ---
Author Organization [facility] Address [address] [place] [address] Care Team Providers Care Potter Or Ceramic Artist Name Role Phone Chato Romero MD Primary Care Provider [phone] Reason for Visit * Reason Onset Date Comments PT-1 03/13/2025 Encounter Details Date Type Department Care Team (Late st Contact Info) Description 03/13/2025 Telephone Adult Medicine [address] [phone] Chato Romero MD [address] [place] [address] Social History Tobacco Use Types Packs/Day Years [...] documented in this encounter Progress Notes * Allison Saini - 03/13/2025 3:25 PM EDT PT[facility] new provider or submitter number is [id number] Verify and document patients [place] Health insurance ID # (NOT [facility] ID): [id number] Payor: MEDICARE / Plan: MEDICARE PART A & B / Product Type: Medicare / Patient mailing address: [address] [place] [phone] (home) [phone] (work) Pt. demographics verified? yes If not accurate, update registration. Is this a NEW request or a RENEWAL? Renewal Name of treating facility: [facility] Name (first & last) of treating provider? required : JULIAN Condon What is the medical reason why the patient is seeing the above provider? Sleep apnea Address/Zip code for treating provider: [address], [place] [address] Phone # for treating provider: Is the provider in the [facility] (do they accept [place] Health insurance)? yes What specialtly is this provider? Sleep Clinic When is the visit scheduled for? 03/28/25 How often you will be seeing this particular provider? 4 x a month Do you have friends or family who can transport you to this visit? no If yes, do not complete request. Is there anything stopping you from using public transportation? If yes, explain: no Is there a medical reason (diagnosis) why you are unable to use public transportation? If yes, explain: Yes,COPD with asthma and back and knee pain Does patient carry self-administered oxygen? no Does patient require door through door or room to room service( ex: member cannot ambulate or wait independently outside their home/facility for transportation. no Is this is for an Adult Day Program or Suboxone clinic No If yes to above what is arrival time and what is departure time If yes to above how many days a week? Do you need a wheelchair van? no If you use a wheelchair what is the height, width & length of the wheelchair? Do you need an escort to accompany you? If yes, explain why. no Will you have an alternative pick-up address? no Do you have a service animal? no PT DOES NOT NEED RELEASE OF INFORMATION SIGNED documented in this encounter Plan of Treatment Upcoming Encounters Date Type Department Care Team (Late st Contact Info) Description 04/04/2025 1:30 PM EDT Appointment Radiology Department - [address] [phone] 04/15/2025 1:50 PM EDT Office Visit Pulmonology - [address] [place] [address] Hilda Daíz, GAS APPLIANCE SERVICER HELPER [address] [place] [phone] 04/17/2025 10:00 AM EDT Office Visit Adult [address] [phone] Chato Romero MD [address] [place] [address] 08/19/2025 3:45 PM EST Office Visit Adult [address] [phone] Chato Romero MD [address] [place] [address] documented as of this encounter Goals Goal [...] on filedocumented in this encounter Care Teams Potter Or Ceramic Artist Relationship Specialty Start Date End Date Chato Romero MD [address] [place] [address] PCP - General Internal Medicine 04/13/21 documented as of this encounter
== END ==
LOC: HO.SL 19:30
PROVIDERS: PCP Internal Medicine; Visit Provider Psychiatry & Neurology Neurology
DX: Z13.89 Encounter for screening for other disorder (principal)

== ENCOUNTER 2025-05-21 14:57 | Outpatient (AMB) | payer MEDICARE, MEDICAID, SELFPAY ==
--- OUTSIDE RECORDS SUMMARY | 2025-05-20 12:58 | XMS_ITS | Encounter Summary ---
Author Organization [facility] Address [address] [place] [address] Care Team Providers Care Naphthol Soaping Machine Operator Name Role Phone Chato Romero MD Primary Care Provider [phone] Reason for Referral * Imaging (Routine) - Authorized Specialty Diagnoses / Procedures Referred By Cisco t Referred To Contact Radiology Diagnoses Neck mass Procedures CT Neck Soft Tissue w Contrast Chato Romero MD [address] [place] [address] Phone: tel: fax: CT Scan - [address] Phone: tel: fax: Referral ID Status Reason Start Date Expiration Date V isits Requested Visits Authorized [id number] Authorized 05/13/2025 05/13/2026 1 1 Reason for Visit * Imaging (Routine) - Authorized Specialty Diagnoses / Procedures Referred By Contac t Referred To Contact Radiology Diagnoses Neck mass Procedures CT Neck Soft Tissue w Contrast Chato Romero MD [address] [place] [address] Phone: tel: fax: CT Scan - [address] [place] Phone: tel: fax: Referral ID Status Reason Start Date Expiration Date V isits Requested Visits Authorized [id number] Authorized 05/13/2025 05/13/2026 1 1 Encounter Details Date Type Department Care Team (Latest Contact Info) Description 05/20/2025 12:58 PM EST - 05/20/2025 11:59 PM EST Hospital Encounter CT Scan - [place] [address] [place], [place] [phone] Neck mass Discharge Disposition: Home or Self Care Social History Tobacco Use Types Packs/Day Years [...] living situation? Unrecognized valu e 02/14/2025 Comments No Sex and Gender Information Value Date Recorded [...] Patrick Yang RN documented in this encounter Medications at Time of Discharge albuterol 2.5 mg /3 mL (0.083 %) nebulizer solutionIndicatio ns:COPD with asthma ([facility] V24, [facility] V28) Take 3 mL (2.5 mg total) by nebulization every 4 (four) hours if needed for wheezing. USE 1 VIAL VIA NEBULIZER EVERY 4 HOURS NEEDED FOR WHEEZING 100 mL 2 02/10/2025 azelastine (ASTELIN) 137 mcg (0.1 %) nasal sprayIndications: Non-seasonal allergic rhinitis due to fungal spores USE 2 SPRAYS IN EACH NOSTRIL TWICE DAILY DIRECTED 30 mL 2 03/17/2025 blood glucose control high,low (FreeStyle Control) solution Use as directed 10/20/2017 blood sugar diagnostic (FreeStyle Lite Strips) test strip USE ONCE DAILY TO TEST BLOOD SUGAR 100 strip 1 12/13/2024 blood sugar diagnostic (FreeStyle Lite Strips) test strip Use as instructed 100 each 1 02/11/2025 blood-glucose meter misc Use to test BS once daily 09/06/2023 cholecalciferol (VITAMIN D-3) 50 mcg (2,000 unit) capsule TAKE 1 CAPSULE BY MOUTH EVERY DAY 90 capsule 1 03/21/2025 fluticasone propionate (FLONASE) 50 mcg/actuation nasal sprayIndications: Allergic rhinitis, unspecified seasonality, unspecified trigger SHAKE LIQUID AND USE 2 SPRAYS IN EACH NOSTRIL DAILY 48 g 3 09/27/2024 fluticasone-umecl idinium-vilantero l (Trelegy Ellipta) 100-62.5-25 mcg inhaler Inhale 1 puff (100 mcg total) by mouth 1 (one) time each day. Rinse mouth with water after use to reduce aftertaste and incidence of candidiasis. Do not swallow. 3 each 1 02/03/2025 FreeStyle Lancets 28 gauge lancets USE DIRECTED TO TEST BLOOD GLUCOSE ONCE DAILY 02/21/2024 FREESTYLE LANCETS MISC USE ONCE DAILY TO TEST BLOOD SUGAR 09/06/2023 gabapentin (NEURONTIN) 600 mg tablet Take 1 tab in the morning, 1 tab in the afternoon, and 1.5 tab at bedtime 105 tablet 07/18/2024 glucose blood test strip Use as instructed 100 each 11 02/03/2025 6 hydrOXYzine HCL (ATARAX) 25 mg tablet TAKE 1 TABLET BY MOUTH EVERY 8 HOURS NEEDED FOR ITCHING 09/21/2020 incontinence pad, liner, disp (Poise Pantiliners) pad Use daily for Incontinence inhalational spacing device inhaler Used as directed. 1 each 12/09/2024 6 inhaler,assist device,accesory (INHALER,ASSIST DEVICES,ACCESS MISC) ipratropium-albut Mable (Combivent Respimat) 20-100 mcg/actuation inhalerIndication s:COPD with asthma ([facility] V24, [facility] V28) INHALE 1 PUFF INTO THE LUNGS FOUR TIMES DAILY 12 g 3 02/03/2025 6 ketoconazole (NIZORAL) 2 % shampoo APPLY TOPICALLY TO THE AFFECTED AREA 2 TIMES A WEEK 120 mL 05/03/2024 ketoconazole (NIZORAL) 2 % shampoo APPLY TOPICALLY TO THE AFFECTED AREA 2 TIMES A WEEK 120 mL 5 09/17/2024 lisinopriL (PRINIVIL,ZESTRIL ) 5 mg tablet Take 1 tablet (5 mg total) by mouth 1 (one) time each day. 90 tablet 1 02/03/2025 meclizine (ANTIVERT) 25 mg tablet TAKE 1 TABLET BY MOUTH THREE TIMES DAILY NEEDED FOR DIZZINESS 270 tablet 1 03/18/2025 metFORMIN (GLUCOPHAGE) 500 mg tablet Take 1 tablet (500 mg total) by mouth 2 (two) times a day with meals. 180 tablet 1 12/13/2024 methylphenidate 54 mg 24 hr tablet Take by mouth. TAKE 1 TABLET BY MOUTH EVERY MORNING montelukast (SINGULAIR) 10 mg tabletIndications :COPD with asthma (CMS/HCC V24, CMS/HCC V28) TAKE 1 TABLET BY MOUTH AT BEDTIME 90 tablet 3 04/01/2025 nystatin (MYCOSTATIN) 100,000 unit/gram powder APPLY TOPICALLY TO THE AFFECTED AREA TWICE DAILY NEEDED 45 g 1 04/22/2025 omeprazole (PriLOSEC) [address] capsule TAKE 1 CAPSULE(20 MG) BY MOUTH DAILY 90 capsule 1 04/10/2025 PARoxetine (PAXIL) 40 mg tablet Take by mouth. Take 1 Tablet by mouth every morning. - Oral propranoloL (INDERAL) 60 mg tablet TAKE 1 TABLET BY MOUTH TWICE DAILY 180 tablet 1 04/09/2025 simvastatin (ZOCOR) 40 mg tablet Take 1 tablet (40 mg total) by mouth at bedtime. at bedtime. 90 tablet 1 02/03/2025 tiZANidine (ZANAFLEX) 4 mg tablet TAKE 1 TABLET(4 MG) BY MOUTH TWICE DAILY WITH MEALS 60 tablet 4 02/03/2025 traZODone (DESYREL) 50 mg tablet Take 1 tablet by mouth at bedtime. 10/08/2020 diclofenac (VOLTAREN) 1 % topical gel Apply 4 g topically 4 (four) times a day. APPLY 4 GRAMS TOPICALLY TO THE AFFECTED AREA FOUR TIMES DAILY 300 g 1 05/20/2025 estradioL (ESTRACE) 0.01 % (0.1 mg/gram) vaginal cream USE 1 GRAM VAGINALLY THREE TIMES PER WEEK 01/16/2022 loratadine (CLARITIN) 10 mg tablet TAKE 1 TABLET BY MOUTH EVERY DAY NEEDED FOR ALLERGIES 90 tablet 1 05/19/2025 documented as of this encounter Discharge Disposition Disposition Code Departure Means Destination Home or Self Care documented in this encounter Plan of Treatment Upcoming Encounters Date Type Department Care Team (Late st Contact Info) Description 08/07/2025 1:00 PM EST Office Visit Pulmonology [facility] [address] [facility] [address] [place] [address] Hilda Díaz NP [address] [place] [address] 08/19/2025 3:45 PM EST Office Visit Adult Medicine [facility] [address] [place], [place] [phone] Chato Romero MD [address] [place] [address] documented as of this encounter Goals Goal Patient Goal Type Associated Problems Recent Progress Patient-Stated? Author <enter goal here> General Yes Sridevi Mims RN documented as of this encounter Procedures Procedure Name Priority Date/Time Associated Diagnosis Comments CT NECK SOFT TISSUE W CONTRAST Routine 05/20/2025 1:13 PM EST Neck mass documented in this encounter Results * CT Neck Soft Tissue w Contrast (05/20/2025 1:13 PM EST) Anatomical Region Laterality Modality Head and Neck Computed Tomogra phy 05/20/2025 3:09 PM EST Impressions 05/20/2025 3:35 PM EST Impression: 1. No evidence of neck mass. The previously identified mass seen on prior ultrasound is not visualized on this examination. The mass seen on ultrasound may correspond to heterogeneous musculature. Ultrasound in 6 months to ensure stability. 2. Bilateral thyroid nodules. -------- FINAL REPORT -------- Dictated By: Padmini Hurt Dictated Date: 05/20/2025 15:09 ET Assigned Physician: Padmini Hurt Reviewed and Electronically Signed By: Padmini Hurt Signed Date: 05/20/2025 15:35 ET Workstation ID: [id number] Transcribed By: Self Edit Transcribed Date: 05/20/2025 15:09 ET Narrative 05/20/2025 3:[address] soft tissue History: neck mass Comparison:Ultrasound soft tissue neck from 05/12/2025, CT chest from 03/21/2024 Technique: Multiple axial CT images were obtained from the supraorbital region to the aortic arch following the administration of 100cc of Isovue 370intravenous contrast. Images were reformatted into coronal and sagittal planes. Radiation dosage of 31.62 mGy Findings: The visualized brain parenchyma is normal in appearance. There is no abnormal intracranial enhancement. The orbits and globes are normal in appearance. Postoperative changes of the sinuses. Trace mucosal thickening within the ethmoids. The mastoids are clear. The nasal cavity, nasopharynx, oropharynx, hypopharynx, supraglottic and infraglottic larynx are within normal limits. Subcentimeter lymph nodes are present within the stations of the neck. The trachea is normal in appearance. Right thyroid nodule measures 1.8 cm, left nodule measures 1.1 cm. Vascular structures incompletely evaluated but grossly normal in appearance. 4 mm solid nodule within the left upper lobe (series 3, image 157), stable. The aortic arch, great vessels and superior mediastinum are normal in appearance. Moderate degenerative changes of the cervical spine. Procedure Note Padmini Hurt MD - 05/20/2025 CT soft tissue History: neck mass Comparison:Ultrasound soft tissue neck from 05/12/2025, CT chest from03/21/2024 Technique: Multiple axial CT images were obtained from the supraorbitalregion to the aortic arch following the administration of 100cc of [id number] contrast. Images were reformatted into coronal and sagittalplanes. Radiation dosage of 31.62 mGy Findings: The visualized brain parenchyma is normal in appearance. There is noabnormal intracranial enhancement. The orbits and globes are normal in appearance. Postoperative changes ofthe sinuses. Trace mucosal thickening within the ethmoids. The mastoidsare clear. The nasal cavity, nasopharynx, oropharynx, hypopharynx, supraglottic andinfraglottic larynx are within normal limits. Subcentimeter lymph nodes are present within the stations of the neck. Thetrachea is normal in appearance. Right thyroid nodule measures 1.8 cm,left nodule measures 1.1 cm. Vascular structures incompletely evaluatedbut grossly normal in appearance. 4 mm solid nodule within the left upper lobe (series 3, image 157),stable. The aortic arch, great vessels and superior mediastinum are normalin appearance. Moderate degenerative changes of the cervical spine. IMPRESSION: Impression: 1. No evidence of neck mass. The previously identified mass seen on priorultrasound is not visualized on this examination. The mass seen onultrasound may correspond to heterogeneous musculature. Ultrasound in 6months to ensure stability. 2. Bilateral thyroid nodules. -------- FINAL REPORT -------- Dictated By: Padmini Hurt Dictated Date: 05/20/2025 15:09 ET Assigned Physician: Padmini Hurt Reviewed and Electronically Signed By: Padmini Hurt Signed Date: 05/20/2025 15:35 ET Workstation ID: [id number] Transcribed By: Self Edit Transcribed Date: 05/20/2025 15:09 ET Chato Romero MD IM CT PROCEDURES Final Result documented in this encounter Visit Diagnoses Diagnosis Neck mass Swelling, mass, or lump in head and neck documented in this encounter Administered Medications Inactive Administered Medications - up to 3 most recent administrations Medication Order MAR Action Action Date Dose Rate Site iopamidoL (ISOVUE-370) 370 mg iodine /mL (76 %) injection 100 mL 100 mL, intravenous, Once in imaging, Starting on Mon05/20/25 at 1312, For 1 dose Given 05/20/2025 1:15 PM EST 100 mL sodium chloride 0.9 % flush 10 mL 10 mL, intravenous, Once, On Mon05/20/25 at 1330, For 1 dose Given 05/20/2025 1:13 PM EST 10 mL documented in this encounter Care Teams Naphthol Soaping Machine Operator Relationship Specialty Start Date End Date Chato Romero MD [address] [place] [address] PCP - General Internal Medicine 04/13/21 documented as of this encounter
--- NOTE | 2025-05-21 14:56 | MHC.OFFVIS ---
Vital Signs 05/21/25 14:57 Height 5 ft 5 in Weight 237 lb 6 oz BMI 39.5 BP 128/76 Blood Pressure Location Rt brachial Position Sitting Pulse 83 Pulse Source Pulse Oximeter Pulse Oximetry (%) 94 Oxygen Delivery Method Room Air Intake Visit Reasons: 4mnth follow up Intake Note: Follow up Tremors of nervous system, memory loss and VANESSA. See Sleep studies Forcer Maker Required: No Accompanied by: Self / Same As Patient Allergies ampicillin Allergy (Intermediate, Verified 05/21/25 14:57) hives carisoprodol (From Soma) Allergy (Intermediate, Verified 05/21/25 14:57) Hives chlorzoxazone (From Parafon Forte) Allergy (Intermediate, Verified 05/21/25 14:57) Nausea and Vomiting ciprofloxacin (From Cipro) Allergy (Intermediate, Verified 05/21/25 14:57) Rash codeine Allergy (Intermediate, Verified 05/21/25 14:57) Nausea and Vomiting diphenhydramine (From Benadryl) Allergy (Intermediate, Verified 05/21/25 14:57) rash erythromycin base Allergy (Intermediate, Verified 05/21/25 14:57) Nausea and Vomiting fexofenadine (From Katlyn) Allergy (Intermediate, Verified 05/21/25 14:57) Hives penicillin G Allergy (Intermediate, Verified 05/21/25 14:57) Rash ranitidine Allergy (Intermediate, Verified 05/21/25 14:57) Rash Sulfa (Sulfonamide Antibiotics) Allergy (Intermediate, Verified 05/21/25 14:57) hives tetracycline Allergy (Intermediate, Verified 05/21/25 14:57) Hives tolmetin (From Tolectin) Allergy (Intermediate, Verified 05/21/25 14:57) hives HPI Comments Details: 70y/o female with multiple medical issues comes for follow up of tremors and VANESSA.Tremors- mild , postural , action . does not affect her ADLS. VANESSA- repeat PSG in Mar 2025 showed severe sleep apnea AHI 36 /hr O2 zoya 83 %. BiPAP 09/02 did well History from last visit 2021- She also wants to know if she has dementia, parkinsons. She reports tremors for more than 5 years now. The tremors are in both her UE and LE.The tremors are mostly with posture and rest. The tremors are intermittent and worse with anxiety. She has trouble using her computer because of her tremors.she denies any problems with eating, dressing , showering. she also reports UE jerks at rest.No change in voice. She has some short term memory issues. She has h/o sleep apnea but does not have CPAP now. she is in the process ofgetting a new CPAP. she has trouble falling asleep staying asleep , has loud snoring. [facility] Medical History Cyst, arachnoid Diabetes Anxiety Depression Obstructive sleep apnea Scoliosis Obesity (BMI 30-39.9) Lumbar spinal stenosis Neurogenic bladder Arachnoid cyst Surgical History H/O laparoscopy Hx of tonsillectomy H/O hernia repair H/O tooth extraction H/O colonoscopy H/O: H/O brain surgery Family History Father Acute arthritis Mother Acute arthritis Brain tumor Vitamin B12 deficiency Father Heart attack Family/Other Brain tumor Cancer Social History Household Members Other:: lives alone Housing: Apartment Do you presently have visiting nurse or other home services: Yes (homemaker) Alcohol intake: never Patient Tobacco Use Status: Never used Tobacco e-Cigarette/Vaping Use: Never Used service: No Current occupational status: disabled Physical Exam Vital Signs: Last Vital Signs Pulse 83 05/21/25 14:57 BP 128/76 05/21/25 14:57 Pulse Ox 94 05/21/25 14:57 Oxygen Delivery Method Room Air 05/21/25 14:57 BMI result Body Mass Index 39.5 Const General: cooperative Nutritional Appearance: obese Orientation/consciousness: patient oriented x3 HEENT Head: Yes normal to inspection Throat: Yes other (mallampatti grade 4) Eyes Pupils: Equal, round and reactive pupils present Neck Other: antecollis Neuro General: patient oriented x3 Cranial nerves: Yes CN's II-XII intact bilaterally, Yes Facial sensation intact/muscles of mastication intact, Yes Equal, round and reactive pupils present and Yes Bilaterally intact EOM present Cognition (Neuro): normal cognition Gait exam (Neuro): Antalgic gait present and Other gait observations present (slow ) Motor exam (neuro): 5/5 motor strength present throughout Deep tendon reflexes (DTR's): Right triceps reflex intensity grade: 3+, Left triceps reflex intensity grade: 3+, Rt Biceps (C5, C6): 3+, Left biceps reflex intensity grade: 3+, Right brachioradialis reflex intensity grade: 3+, Left brachioradialis reflex intensity grade: 3+, Right patellar reflex intensity grade: 3+ and Left patellar reflex intensity grade: 3+ Coordination: [id number] test normal Psych Affect: normal affect Assessment & Plan Assessment & Plan (1) Tremors of nervous system: Comment: likely exaggerated physiological tremors, no evidence of parkinsons disease Code(s): R25.1 - Tremor, unspecified Category: Medical (2) Obstructive sleep apnea: Comment: PSG 04/19 AHI 36 O2 zoya 83 % Did well on BiPAP 17/8 Code(s): G47.33 - Obstructive sleep apnea (adult) (pediatric) Category: Medical (3) Memory change: Comment: multifactorial, medications, ? mood disorder, Untreated sleep apnea. Code(s): R41.3 - Other amnesia Category: Medical Plan Reviewed sleep apnea - start on BiPAP 17/8 Continue propranolol 60mg bid gabapentin 600mg qam ( misses the middle of the day dose) and 900 mg qhs Coding Level of Care Code Est Pt Level 4 (42205) Complex visit Add On G2211 Diagnoses Tremors of nervous system R25.1 Obstructive sleep apnea G47.33 Memory change R41.3
[2025-05-21 14:57] VITALS: BP 128/76; PULSE 83; O2SAT 94; BMI 39.5
--- OUTSIDE RECORDS SUMMARY | 2025-05-21 17:34 | XMS_ITS | Encounter Summary ---
Author Organization [facility] Address [address] [place] [address] Care Team Providers Care Buyer Intern Name Role Phone Chaot Romero MD Primary Care Provider [phone] Encounter Details Date Type Department Care Team (Late st Contact Info) Description 04/17/2025 Telephone Adult Medicine [address] [phone] Chato Romero MD [address] [place] [address] Social History Tobacco Use Types Packs/Day Years [...] documented in this encounter Progress Notes * Benjamin Colby MA - 05/20/2025 2:09 PM ESTAddended by: BENJAMIN COLBY on: 05/20/2025 02:09 PM Modules accepted: Orders * Benjamin Colby MA - 05/20/2025 2:08 PM EST This was ordered by pulmonology * Chato Romero MD - 04/17/2025 10:17 AM EDT Need for nebulizer tubing documented on today note can we please help with this dme documented in this encounter Plan of Treatment Upcoming Encounters Date Type Department Care Team (Late st Contact Info) Description 08/07/2025 1:00 PM EST Office Visit Pulmonology - [place] 175 [facility] [address] [place] [address] Hilda Díaz, GENERAL LITHOGRAPHIC WORKER [address] [place] [address] 08/19/2025 3:45 PM EST Office Visit Adult Medicine [address] [phone] Chato Romero MD [address] [place] [address] documented as of this encounter Goals Goal Patient Goal Type Associated Problems Recent Progress Patient-Stated? Author <enter goal here> General Yes Sridevi Mims, NEPTALI documented as of this encounter Visit Diagnoses Diagnosis COPD with asthma (CMS/HCC V24, CMS/HCC V28)- Primary documented in this encounter Care Teams Buyer Intern Relationship Specialty Start Date End Date Chato Romero MD [address] [place] [address] PCP - General Internal Medicine 04/13/21 documented as of this encounter
--- OUTSIDE RECORDS SUMMARY | 2025-05-21 17:34 | XMS_ITS | Encounter Summary ---
Author Organization [facility] Address [address] [place] [address] Care Team Providers Care Toolroom Helper Name Role Phone Chato Romero MD Primary Care Provider [phone] Encounter Details Date Type Department Care Team (Late st Contact Info) Description 02/18/2025 Referral Triage [facility] [address] [place] [phone] Shira Pardo Social History Tobacco Use Types [...] needs Shira Pardo Community Health Worker (CHW) Media Associate/Regional documented in this encounter Plan of Treatment Upcoming Encounters Date Type Department Care Team (Late st Contact Info) Description 08/07/2025 1:00 PM EST Office Visit Pulmonology - [place] [address] [place] [phone] Hilda Díaz, LOUISE [address] [place] [address] 08/19/2025 3:45 PM EST Office Visit Adult Medicine [address] [phone] Chato Romero MD [address] [place] [address] documented as of this encounter Goals Goal Patient Goal Type Associated Problems Recent Progress Patient-Stated? Author <enter goal here> General Yes Sridevi Mims, RN documented as of this encounter Visit Diagnoses Not on filedocumented in this encounter Care Teams Toolroom Helper Relationship Specialty Start Date End Date Chato Romero MD [address] [place] [address] PCP - General Internal Medicine 04/13/21 documented as of this encounter
--- OUTSIDE RECORDS SUMMARY | 2025-05-21 17:34 | XMS_ITS ---
Author Organization [address] Address [address] [place] [address] Phone Care Team Providers Care Oncology Rep Name Role Phone Chato Romero MD Primary Care Provider [phone] High Risk Care Management Status:Closed (Closed) Start date:02/04/2025 Enrollment date:02/14/2025 End date:05/21/2025 Close reason:Patient Achieved Goals Related social drivers of health:Financial Risk, Transportation, Social Isolation Overview Patient was referred to local [facility] senior transportation. Case Team Name Relationship Phone Sridevi Mims RN(Responsible Staff) Care Reinier meraz Continued Care and Services Coordination
--- OUTSIDE RECORDS SUMMARY | 2025-05-21 17:34 | XMS_ITS | Encounter Summary ---
Author Organization [facility] Address [address] [place] [address] Care Team Providers Care Manager Privacy Name Role Phone Chato Romero MD Primary Care Provider [phone] Reason for Visit * Reason Onset Date Comments durable medical equipment 05/20/2025 Encounter Details Date Type Department Care Team (Late st Contact Info) Description 05/20/2025 Telephone Pulmonology - [place] [address] [facility] [address] [place] [address] Hilda Díaz NP [address] [place] [phone] Social History Tobacco Use Types Packs/Day Years [...] documented in this encounter Progress Notes * Berna Barahona MA - 05/20/2025 11:53 AM EST Order sent to [facility] * Frederick Pierre MA - 05/20/2025 11:38 AM EST Forms printed and given to DEMIAN * Reggie Vega - 05/20/2025 11:02 AM EST Fax received from [facility]. Form attached to encounter. documented in this encounter Plan of Treatment Upcoming Encounters Date Type Department Care Team (Late st Contact Info) Description 08/07/2025 1:00 PM EST Office Visit Pulmonology - [place] 175 [facility] [address] [place] [address] Hilda Díaz, PIPELINE DISPATCH OPERATOR [address] [place] [address] 08/19/2025 3:45 PM EST Office Visit Adult Medicine [address] [phone] Chato Romero MD [address] [place] [address] documented as of this encounter Goals Goal Patient Goal Type Associated Problems Recent Progress Patient-Stated? Author <enter goal here> General Yes Sridevi Mims RN documented as of this encounter Visit Diagnoses Not on filedocumented in this encounter Care Teams Manager Privacy Relationship Specialty Start Date End Date Chato Romero MD [address] [place] [address] PCP - General Internal Medicine 04/13/21 documented as of this encounter
--- OUTSIDE RECORDS SUMMARY | 2025-05-21 17:34 | XMS_ITS | Clinical Summary ---
Author Organization [facility] Address [address] [place] [address] Care Team Providers Care Oncology Patient Navigator Name Role Phone Betty Cunha DO Primary [...] age to complete this topic Care Teams Oncology Patient Navigator Relationship Specialty Start Date End Date Betty Cunha DO PCP - General Casting Supervisor 12/04/20
--- OUTSIDE RECORDS SUMMARY | 2025-05-21 17:34 | XMS_ITS | Encounter Summary ---
Author Organization [facility] Address [address] [place] [address] Care Team Providers Care Assistant City Attorney Name Role Phone Chato Romero MD Primary Care Provider [phone] Encounter Details Date Type Department Care Team (Late st Contact Info) Description 05/09/2025 Telephone Adult Medicine [address] [phone] Chato Romero MD [address] [place] [address] Social History Tobacco Use Types Packs/Day Years [...] Patrick Yang RN documented in this encounter Plan of Treatment Upcoming Encounters Date Type Department Care Team (Late st Contact Info) Description 08/07/2025 1:00 PM EST Office Visit Pulmonology - [place] 175 [facility] [address] [place] [address] Hilda Díaz NP [address] [place] [phone] 08/19/2025 3:45 PM EST Office Visit Adult Medicine [address] [phone] Chato Romero MD [address] [place] [address] documented as of this encounter Goals Goal Patient Goal Type Associated Problems Recent Progress Patient-Stated? Author <enter goal here> General Yes Sridevi Mims, RN documented as of this encounter Visit Diagnoses Not on filedocumented in this encounter Care Teams Assistant City Attorney Relationship Specialty Start Date End Date Chato Romero MD [address] [place] [address] PCP - General Internal Medicine 04/13/21 documented as of this encounter
--- OUTSIDE RECORDS SUMMARY | 2025-05-21 17:34 | XMS_ITS | Encounter Summary ---
Author Organization [facility] Address [address] [place] [address] Care Team Providers Care Coremaker Floor Name Role Phone Chato Romero MD Primary Care Provider [phone] Encounter Details Date Type Department Care Team (Late st Contact Info) Description 04/17/2025 Results Follow-Up Adult Medicine [address] [phone] Chato Romero MD [address] [place] [address] Social History Tobacco Use Types Packs/Day Years [...] 1:00 PM EST Office Visit Pulmonology - [place] [address] [facility] [address] [place] [address] Hilda Díaz NP [address] [place] [phone] 08/19/2025 3:45 PM EST Office Visit Adult Medicine [address] [phone] Chato Romero MD [address] [place] [address] documented as of this encounter Goals Goal Patient Goal Type Associated Problems Recent Progress Patient-Stated? Author <enter goal here> General Yes Sridevi Mims, RN documented as of this encounter Visit Diagnoses Not on filedocumented in this encounter Care Teams Coremaker Floor Relationship Specialty Start Date End Date Chato Romero MD [address] [place] [address] PCP - General Internal Medicine 04/13/21 documented as of this encounter
--- OUTSIDE RECORDS SUMMARY | 2025-05-21 17:34 | XMS_ITS | Clinical Summary ---
Author Organization [address] Address [address] [place] [phone] Phone Care Team Providers Care Patient Companion Name Role Phone Chato Romero MD Primary Care Provider [phone] Allergies Active Allergy Reactions Criticality Noted Date [...] test BS once daily 09/06/19 24 Active PARoxetine (PAXIL) 40 mg tablet Take [...] at bedtime 105 tablet 07/18/19 25 Active ketoconazole (NIZORAL) 2 % shampoo APPLY TOPICALLY TO THE AFFECTED AREA 2 TIMES A WEEK 120 mL 5 09/18/19 25 Active fluticasone propionate (FLONASE) 50 mcg/actuation nasal sprayIndicatio ns:Allergic rhinitis, unspecified seasonality, unspecified trigger SHAKE LIQUID AND USE 2 SPRAYS IN EACH NOSTRIL DAILY 48 g 3 09/28/19 25 Active inhalational spacing device inhaler Used as directed. 1 each 12/10/19 25 2025 Active blood sugar diagnostic (FreeStyle Lite Strips) test strip USE ONCE DAILY TO TEST BLOOD SUGAR 100 strip 1 12/14/19 25 Active metFORMIN (GLUCOPHAGE) 500 mg tablet Take 1 tablet (500 mg total) by mouth 2 (two) times a day with meals. 180 tablet 1 12/14/19 25 Active ipratropium-al buteroL (Combivent Respimat) 20-100 mcg/actuation inhalerIndicat ions:COPD with asthma (CMS/HCC V24, CMS/HCC V28) INHALE 1 PUFF INTO THE LUNGS FOUR TIMES DAILY 12 g 3 02/04/20 25 2025 Active fluticasone-um eclidinium-gaye anterol (Trelegy Ellipta) 100-62.5-25 mcg inhaler Inhale 1 puff (100 mcg total) by mouth 1 (one) time each day. Rinse mouth with water after use to reduce aftertaste and incidence of candidiasis. Do not swallow. 3 each 02/04/20 25 Active glucose blood test strip Use as instructed 100 each 02/04/20 25 2025 Active lisinopriL (PRINIVIL,ZEST RIL) [...] test strip Use as instructed 100 each 02/12/20 25 2025 Active albuterol 2.5 mg /3 mL (0.083 %) nebulizer solutionIndica tions:COPD with asthma (CMS/[facility] V24, CMS/[facility] V28) Take 3 mL (2.5 mg total) by nebulization every 4 (four) hours if needed for wheezing. USE 1 VIAL VIA NEBULIZER EVERY 4 HOURS NEEDED FOR WHEEZING 100 mL 2 02/11/20 25 Active azelastine (ASTELIN) 137 mcg (0.1 [...] DAY 90 capsule 1 03/21/20 25 Active montelukast (SINGULAIR) 10 mg tabletIndicati ons:COPD with asthma (CMS/HCC V24, CMS/[facility] V28) TAKE 1 TABLET BY MOUTH AT BEDTIME 90 tablet 3 04/01/20 Active propranoloL (INDERAL) 60 mg tablet TAKE 1 TABLET BY MOUTH TWICE DAILY 180 tablet 1 04/09/20 Active omeprazole (PriLOSEC) [address] capsule TAKE 1 CAPSULE(20 MG) BY MOUTH DAILY 90 capsule 1 04/10/20 Active nystatin (MYCOSTATIN) 100,000 unit/gram powder APPLY TOPICALLY TO THE AFFECTED AREA TWICE DAILY NEEDED 45 g 1 04/22/20 Active loratadine (CLARITIN) 10 mg tablet TAKE 1 TABLET BY MOUTH EVERY DAY NEEDED FOR ALLERGIES 90 tablet 1 05/19/20 Active diclofenac (VOLTAREN) 1 % topical gel Apply 4 g topically 4 (four) times a day. APPLY 4 GRAMS TOPICALLY TO THE AFFECTED AREA FOUR TIMES DAILY 300 g 1 05/20/20 Active nystatin (MYCOSTATIN) 100,000 unit/gram powder Apply topically. APPLY TOPICALLY TO AFFECTED AREA TWICE DAILY NEEDED 2024 Discontinued diclofenac (VOLTAREN) 1 % topical gel Apply 4 g topically 4 (four) times a day. APPLY 4 GRAMS TOPICALLY TO THE AFFECTED AREA FOUR TIMES DAILY 100 g 1 07/31/19 25 2024 Discontinued(R eorder) loratadine (CLARITIN) 10 mg tablet TAKE 1 TABLET BY MOUTH EVERY DAY NEEDED FOR ALLERGIES 90 tablet 1 01/22/20 25 2024 Discontinued cephalexin (KEFLEX) 500 mg capsule Take 1 capsule (500 mg total) by mouth 2 (two) times a day for 10 days. 20 each 04/17/20 25 2024 Active Problems Problem Noted Date Diagnosed Date Neurogenic bladder 07/21/2021 Overview (05/21/2024): Due to underlining diabetes. Follows with [facility] urology. UDS significant for incomplete bladder emptying and decreased urine flow. No evidence of bladder hyperactivity. Follows on a 6-month basis. Rheumatoid factor positive 06/03/2021 Overview (05/21/2024): Likely false positive, neg ccp, normal acute phase reactants. Osteoarthritis of both knees 11/14/2020 Thyroid nodule 10/23/2020 Essential hypertension 10/08/2020 Osteopenia 09/18/2020 Overview (05/21/2024): DXA 08/2020: Lumbar spine t score 0.3 Hip -2.0 COPD with asthma ([facility] V24, [facility] V28) 07/27 Obstructive sleep apnea 08/11/2020 Overview (05/21/2024): [facility] Home Sleep Apnea Test: Date [...] mellitus type 2, co ntrolled, without complications ([facility] V24, [facility] V28) 06/09/2016 Overview (05/21/2024): HA1c of 8.6% at [facility] Apr 2016 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 Fenestration [...] Encounters Date Type Department Care Team Description 05/20/2025 12:58 PM EST - 05/20/2025 11:59 PM EST Hospital Encounter CT Scan - [address] [phone] Neck mass Discharge Disposition: Home or Self Care 05/20/2025 Results Follow-Up Adult Medicine [address] [phone] Chato Romero MD 05/20/2025 Telephone Pulmonology [facility] [address] [phone] Hilda Díaz NP 05/15/2025 Telephone Pulmonology [facility] [address] [phone] Hilda Díza NP 05/12/2025 2:09 PM EST - 05/12/2025 11:59 PM EST Hospital Encounter Radiology Department - [address] [phone] Neck mass Discharge Disposition: Home or Self Care 05/09/2025 Telephone Adult Medicine [address] [phone] Chato Romero MD 05/06/2025 3:10 PM EST Office Visit Pulmonology [address] [phone] Hilda Díaz NP COPD with asthma (CMS/HCC V24, CMS/HCC V28) (Primary Dx); Gastroesophageal reflux disease, unspecified whether esophagitis present; Anxiety state; Non-seasonal allergic rhinitis, unspecified trigger; Obstructive sleep apnea; Obesity (BMI 30-39.9) 04/30/2025 Telephone Adult Medicine [address] [phone] Chato Romero MD 04/17/2025 10:00 AM EDT Office Visit [address] [phone] Chato Romero MD Diabetes mellitus type 2, controlled, without complications (CMS/HCC V24, CMS/[facility] V28) (Primary Dx); Essential hypertension; Pure hypercholesterolemia; Encounter for long-term (current) use of medications; COPD with asthma (CMS/[facility] V24, [facility] V28); Neck mass; Other fatigue; B12 deficiency; Ingrown nail; Paronychia of great toe 04/17/2025 Results Follow-Up Adult Medicine [address] [phone] Chato Romero MD 04/17/2025 Results Follow-Up [address] [phone] Chato Romero MD 04/17/2025 Telephone Adult Medicine [address] [phone] Chato Romero MD 04/14/2025 Telephone Adult Medicine [address] [phone] Chato Romero MD 03/13/2025 Telephone Adult Medicine [address] [phone] Chato Romero MD 03/13/2025 Telephone Adult Medicine [address] [phone] Chato Romero MD 03/07/2025 Telephone Pul[address]ology [address] [phone] Hilda Díaz NP 02/28/2025 2:00 PM EDT Ancillary Procedure Pulmonology - [place] [facility] [address] [place] [address] COPD with asthma (CMS/HCC V24, CMS/HCC V28) 02/25/2025 Telephone Pulmonology [facility] 175 [facility] [address] [place] [phone] Hilda Díaz NP 02/20/2025 Telephone [facility] Health Worker Program [address] [place] [phone] Darrel Bernstein 02/18/2025 Referral Triage Community Health Worker [facility] [address] [place] [phone] Shira Pardo from Last 3 Months Immunizations Immunization Administration Dates Next Due Influenza Quadravalent, 0.5m l (Fluad) 65yo and older 05/30/2022 Influenza Quadravalent, 0.5m l (Fluzone High-dose) 65yo and older 04/16/2023 Influenza trivalent, 0.5mL ( Fluad) 65yo and older 06/03/2021 Slip Stoppers SARS-CoV-2 COVID-19, mRNA, LNP-S, preservative free 06/20/2021,12/17/2020,11/26/2020 Td, Unspecified 11/04/2002 Tdap Tetanus diptheria acell ular pertussis (Boostrix; Adacel) 7yo and older 02/15/2013 Surgical History Surgery Date Site/Laterality Comments OTHER SURGICAL HISTORY PROCEDURE: UT LAPAROSCOPY W/LYSIS OF ADHESIONS COLONOSCOPY 11/07/06 PROCEDURE: [...] Sees Dr. 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 DX:Cyst of pituitary gland ([facility]) Family history of cancer 07/18/2014 DX:Fami ly history of cancer COPD (chronic obstructive pu lmonary disease) ([facility] V24, [facility] V28) DX:COPD (chronic o bstructive pulmonary disease) ([facility]) Thyroid nodule DX:Thyroid nodul e [...] Sign Reading Time Taken Comments Blood Pressure 130/80 05/06/2025 2:47 PM EST Pulse 85 05/06/2025 2:47 PM EST Temperature 36.6 C (97.8 F) 05/06/2025 2:47 PM EST Respiratory Rate 18 05/06/2025 2:47 PM EST Oxygen Saturation 91% 05/06/2025 2:47 PM EST Inhaled Oxygen Concentration - - Weight 108 kg (237 lb 6.4 oz) 05/06/2025 2:47 PM EST Height 165.1 cm (5' 5 ) 05/06/2025 2:47 PM EST Body Mass Index 39.51 05/06/2025 2:47 PM EST Plan of Treatment Upcoming Encounters Date Type Department Care Team (Late st Contact Info) Description 08/07/2025 1:00 PM EST Office Visit Pulmonology - [address] [place] [phone] Hilda Díaz, LOUISE [address] [place] [phone] 08/19/2025 3:45 PM EST Office Visit Adult Medicine [address] [phone] Chato Romero MD [address] [place] [address] Health Maintenance Due Date Last Done Comments Pneumococcal Vaccine: 50+ Years (1 of 2 - PCV) 1974 RSV Immunization Adult Patients (1 - Risk 50-74 years 1-dose series) 2005 Zoster Vaccines (1 of 2) 2005 Colorectal Cancer Screening: FIT-DNA (Cologuard) 06/04/2022 DTaP,Tdap,and Td Vaccines (3 - Td or Tdap) 02/15/2023 02/15/2013, 11/04/2002 Depression Screening 06/26/2024 12/29/2023 Falls Risk Assessment 07/20/2024 07/20/2023 Medicare Annual Wellness Visit 12/28/2024 12/29/2023 Diabetes: Annual Foot Exam 01/23/2025 01/24/2024 Diabetes: Annual Retina Eye Exam 01/23/2025 01/24/2024 COVID-19 Vaccine ( season) 2025 06/20/2021, 12/17/2020, 11/26/2020 Influenza Vaccine (#1) 2025 , 04/16/2023, 05/30/2022, Additional history exists Diabetes: Blood Sugar Control Test (HGBA1C) 10/16/2025 04/17/2025, 01/02/2024, 01/02/2024 Social Influencers of Health Screening 02/14/2026 02/14/2025 Breast Cancer Screening 03/21/2026 03/21/20 24, 03/21/2024, 10/08/2020 Diabetes: Annual Urine Albumin-Creatinine Ratio (uACR) 04/17/2026 04/17/2025, 01/02/2024 Diabetes: Annual GFR (Glomerular Filtration Rate) 04/17/2026 04/17/2025, 11/30/2024, 01/02/2024, Additional history exists Hypertension/CHF/CAD Annual BMP Blood Test 04/17/2026 04/17/2025, 11/30/2024, 01/02/2024, Additional history exists Cholesterol Screening (Lipid Panel) 04/17/2030 04/17/2025, 02/03/2025, 01/02/2024, Additional history exists Osteoporosis Screening (Bone Density Screening) 09/16/2030 09/16/2020 [...] goal here> General Yes Sridevi Mims RN Procedures Procedure Name Priority Date/Time Associated Diagnosis Comments CT NECK SOFT TISSUE W CONTRAST Routine 05/20/2025 1:13 PM EST Neck mass US HEAD NECK SOFT TISSUE Routine 05/12/2025 2:51 PM EST Neck mass CBC WITH AUTO DIFFERENTIAL Routine 04/17/2025 10:35 AM EDT Neck mass HEMOGLOBIN A1C Routine 04/17/2025 10:35 AM EDT Diabetes mellitus type 2, controlled, without complications (CMS/HCC V24, CMS/HCC V28) MICROALBUMIN CREATININE URINE RATIO Routine 04/17/2025 10:35 AM EDT Diabetes mellitus type 2, controlled, without complications ([facility] V24, [facility] V28) LIPID PANEL WITH REFLEX TO DIRECT LDL Routine 04/17/2025 10:35 AM EDT Pure hypercholesterolemia COMPREHENSIVE METABOLIC PANEL Routine 04/17/2025 10:35 AM EDT Essential hypertension Encounter for long-term (current) use of medications CBC AND DIFFERENTIAL Routine 04/17/2025 10:35 AM EDT Neck mass VITAMIN B12 Routine 04/17/2025 10:35 AM EDT Other fatigue B12 deficiency PULMONARY FUNCTION TESTING Routine 02/28/2025 3:24 PM EDT COPD with asthma ([facility] V24, [facility] V28) SCREENING MAMMOGRAPHY BI 2-VIEW BREAST INC CAD Routine 03/21/2024 10:54 AM EDT Encounter for other screening for malignant neoplasm of breast DIABETES EYE EXAM Routine 01/24/2024 DIABETES FOOT EXAM Routine 01/24/2024 DEPRESSION SCREENING Routine 12/29/2023 COLONOSCOPY Routine 08/22/2023 FALLS RISK ASSESSMENT Routine 07/20/2023 DXA BONE DENSITY STUDY 1+ SITS AXIAL SKEL Routine 09/16/2020 3:18 PM EDT Unspecified menopausal and perimenopausal disorder HEPATITIS C SCREENING Routine 01/08/2019 from Last 3 Months or Most Recently Relevant to Health Maintenance Results * CT Neck Soft Tissue w [...] Signed Date: 05/20/2025 15:35 ET Workstation ID: [id number] Transcribed By: Self Edit Transcribed Date: 05/20/2025 [...] arch following the administration of 100cc of [id number] contrast. Images were reformatted into coronal and [...] Signed Date: 05/20/2025 15:35 ET Workstation ID: [id number] Transcribed By: Self Edit Transcribed Date: 05/20/2025 15:09 ET us Chato Romero MD IMG CT PROCEDURES Final Result * US Head Neck Soft Tissue (05/12/2025 2:51 PM EST) Anatomical Region Laterality Modality Head and Neck Ultrasound 05/12/2025 4:05 PM EST Impressions 05/12/2025 4:08 PM EST 1. Area of palpable concern in the left submandibular area corresponds to a hypoechoic solid mass measuring 1.9 x 1.4 x 1.6 cm with lobularity and mild vascularity. This is concerning for malignancy. Recommend CT soft tissue neck with IV contrast 2. Grossly stable right thyroid nodule. -------- FINAL REPORT -------- Dictated By: Padmini Hurt Dictated Date: 05/12/2025 16:05 ET Assigned Physician: Padmini Hurt Reviewed and Electronically Signed By: Padmini Hurt Signed Date: 05/12/2025 16:08 ET Workstation ID: [id number] Transcribed By: Self Edit Transcribed Date: 05/12/2025 16:05 ET Narrative 05/12/2025 4:08 PM EST Exam: Thyroid ultrasound. HISTORY: neck mass COMPARISON: Ultrasound thyroid from 01/22/2021 Technique: Grayscale and Doppler images of the thyroid gland were obtained. FINDINGS: The thyroid gland is normal in size. The right lobe measures 4.3 x 2.0 x 2.2 cm. The left lobe measures 3.8 x 1.4 x 1.9 cm. The thyroid isthmus is prominent in size and measures 0.9 cm. The thyroid parenchyma is heterogenous Right Lobe: Midpole-hypoechoic lobular solid and cystic nodule measuring 1.6 x 1.5 x 1.6 cm, grossly stable Left Lobe: Midpole-1.4 x 1.1 x 1.2 cm hypoechoic solid nodule, smaller than prior exam Area of palpable concern in the left submandibular area corresponds to a hypoechoic solid mass measuring 1.9 x 1.4 x 1.6 cm with lobularity and mild vascularity. Procedure Note Padmini Hurt MD - 05/12/2025 Exam: Thyroid ultrasound. HISTORY: neck mass COMPARISON: Ultrasound thyroid from 01/22/2021 Technique: Grayscale and Doppler images of the thyroid gland wereobtained. FINDINGS: The thyroid gland is normal in size. The right lobe measures 4.3 x 2.0 x2.2 cm. The left lobe measures 3.8 x 1.4 x 1.9 cm. The thyroid isthmus isprominent in size and measures 0.9 cm. The thyroid parenchyma isheterogenous Right Lobe: Midpole-hypoechoic lobular solid and cystic nodule measuring 1.6 x 1.5 x1.6 cm, grossly stable Left Lobe: Midpole-1.4 x 1.1 x 1.2 cm hypoechoic solid nodule, smaller than priorexam Area of palpable concern in the left submandibular area corresponds to ahypoechoic solid mass measuring 1.9 x 1.4 x 1.6 cm with lobularity andmild vascularity. IMPRESSION: 1. Area of palpable concern in the left submandibular area corresponds toa hypoechoic solid mass measuring 1.9 x 1.4 x 1.6 cm with lobularity andmild vascularity. This is concerning for malignancy. Recommend CT softtissue neck with IV contrast 2. Grossly stable right thyroid nodule. -------- FINAL REPORT -------- Dictated By: Padmini Hurt Dictated Date: 05/12/2025 16:05 ET Assigned Physician: Padmini Hurt Reviewed and Electronically Signed By: Pdamini Hurt Signed Date: 05/12/2025 16:08 ET Workstation ID: [id number] Transcribed By: Self Edit Transcribed Date: 05/12/2025 16:05 ET us Chato Romero MD [facility] US PROCEDURES Final Result * (ABNORMAL) Lipid panel with reflex to direct LDL (04/17/2025 10:35 AM EDT) Cholesterol 221(H) 0 - 200 mg/dL LAB CHEMISTRY METHOD 04/17/2025 3:12 PM EDT [facility] Triglycerides 210(H) 0 - 150 mg/dL LAB CHEMISTRY METHOD 04/17/2025 3:12 PM EDT [facility] HDL 66 >=40 mg/dL LAB CHEMISTRY METHOD 04/17/2025 3:12 PM EDT [facility] LDL Calculated 113(H) 0 - 100 mg/dL LAB CHEMISTRY METHOD 04/17/2025 3:12 PM EDT [facility] Comment:Estimated LDL Calcul ated using equation: Total cholesterol - HDL cholesterol - (Triglycerides/5) VLDL Cholesterol Jan 42 mg/dL LAB CHEMISTRY METHOD 04/17/2025 3:12 PM EDT [facility] Non HDL Chol. (LDL+VLDL) 155(H) <145 mg/dL LAB CHEMISTRY METHOD 04/17/2025 3:12 PM EDT [facility] Chol/HDL Ratio 3.3 0.0 - 4.4 LAB CHEMISTRY METHOD 04/17/2025 3:12 PM EDT [facility] Blood Venous blood specimen / Unknown Venipuncture / Unknown 04/17/2025 10:35 AM EDT 04/17/2025 10:35 AM EDT us Chato Romero MD LAB BLOOD ORDERABLES Final Resu lt [facility] [address] [place] [address], [place] [phone] * (ABNORMAL) CBC auto differential (04/17/2025 10:35 AM EDT) WBC 7.3 4.8 - 10.8 K/mcL LAB HEMETOLOGY METHOD 04/17/2025 12:47 PM EDT [facility] RBC 4.80 3.80 - 4.80 M/mcL LAB HEMETOLOGY METHOD 04/17/2025 12:47 PM EDT [facility] Hemoglobin 13.4 11.5 - 16.0 g/dL LAB HEMETOLOGY METHOD 04/17/2025 12:47 PM EDT [facility] Hematocrit 41.6 35.0 - 47.0 % LAB HEMETOLOGY METHOD 04/17/2025 12:47 PM T [facility] MCV 87.6 79.0 - 98.0 FL LAB HEMETOLOGY METHOD 04/17/2025 12:47 PM EDT [facility] MCH 28.2 27.0 - 32.0 pcg LAB HEMETOLOGY METHOD 04/17/2025 12:47 PM [facility] MCHC 32.2 32.0 - 37.0 g/dL LAB HEMETOLOGY METHOD 04/17/2025 12:47 PM [facility] RDW 12.7 11.0 - 15.0 % LAB HEMETOLOGY METHOD 04/17/2025 12:47 PM [facility] Platelets 216 130 - 400 K/mcL LAB HEMETOLOGY METHOD 04/17/2025 12:47 PM [facility] MPV 10.5 7.0 - 11.0 FL LAB HEMETOLOGY METHOD 04/17/2025 12:47 PM [facility] NRBC 0.0 <1.0 % LAB HEMETOLOGY METHOD 04/17/2025 12:47 PM [facility] NRBC Absolute 0.00 <0.10 K/mcL LAB HEMETOLOGY METHOD 04/17/2025 12:47 PM [facility] Neutrophils Relative 62.8 % LAB HEMETOLOGY METHOD 04/17/2025 12:47 PM [facility] Lymphocytes Relative 18.8 % LAB HEMETOLOGY METHOD 04/17/2025 12:47 PM [facility] Monocytes Relative 12.4 % LAB HEMETOLOGY METHOD 04/17/2025 12:47 PM [facility] Eosinophils Relative 4.3 % LAB HEMETOLOGY METHOD 04/17/2025 12:47 PM [facility] Basophils Relative 1.1 % LAB HEMETOLOGY METHOD 04/17/2025 12:47 PM [facility] Immature Granulocytes Relative 0.6 % LAB HEMETOLOGY METHOD 04/17/2025 12:47 PM [facility] Neutrophils Absolute 4.56 1.50 - 7.00 K/mcL LAB HEMETOLOGY METHOD 04/17/2025 12:47 PM EDT [facility] Lymphocytes Absolute 1.36 1.00 - 5.00 K/mcL LAB HEMETOLOGY METHOD 04/17/2025 12:47 PM EDT [facility] Monocytes Absolute 0.90 0.20 - 1.00 K/mcL LAB HEMETOLOGY METHOD 04/17/2025 12:47 PM EDT [facility] Eosinophils Absolute 0.31 0.00 - 0.50 K/[facility] LAB HEMETOLOGY METHOD 04/17/2025 12:47 PM EDT [facility] Basophils Absolute 0.08 0.00 - 0.20 K/[facility] LAB HEMETOLOGY METHOD 04/17/2025 12:47 PM EDT [facility] Immature Granulocytes Absolute 0.04(H) 0.00 - 0.03 K/[facility] LAB HEMETOLOGY METHOD 04/17/2025 12:47 PM EDT [facility] Blood Venous blood specimen / Unknown Venipuncture / Unknown 04/17/2025 10:35 AM EDT 04/17/2025 10:35 AM EDT us Chato Romero MD LAB BLOOD ORDERABLES Final Resu lt [facility] [address] [place] [address], * Microalbumin creatinine urine ratio (04/17/2025 10:35 AM EDT) Creatinine, Urine 95.0 mg/dL LAB CHEMISTRY METHOD 04/17/2025 2:53 PM EDT [facility] Microalb, Ur 5.5 0.0 - 29.0 mg/L LAB CHEMISTRY METHOD 04/17/2025 2:53 PM EDT [facility] Microalb/Creat Ratio 6 <30 mg/g creat LAB CHEMISTRY METHOD 04/17/2025 2:53 PM EDT [facility] Urine Urine specimen obtained by clean catch procedure / Unknown Non-blood Collection / Unknown 04/17/2025 10:35 AM EDT 04/17/2025 10:35 AM EDT us Chato Romero MD LAB URINE ORDERABLES Final Resu lt Performing Organization Address [facility]/ZIP Co de Phone Number [facility] [address] [place] [address], [place] [phone] * Hemoglobin A1c (04/17/2025 10:35 AM EDT) Hemoglobin A1C 6.2 <6.5 % LAB CHEMISTRY METHOD 04/17/2025 1:55 PM EDT [facility] Mean Bld Glu Estim. 131 mg/dL LAB CHEMISTRY METHOD 04/17/2025 1:55 PM EDT [facility] Blood Venous blood specimen / Unknown Venipuncture / Unknown 04/17/2025 10:35 AM EDT 04/17/2025 10:35 AM EDT us Chato Romero MD LAB BLOOD ORDERABLES Final Resu lt Performing Organization Address [facility]/ZIP Co de Phone Number [facility] [address] [place] [address], [place] [phone] * Vitamin B12 (04/17/2025 10:35 AM EDT) Vitamin B-12 302 250 - 900 pcg/mL LAB CHEMISTRY METHOD 04/17/2025 3:12 PM EDT [facility] Blood Venous blood specimen / Unknown Venipuncture / Unknown 04/17/2025 10:35 AM EDT 04/17/2025 10:35 AM EDT us Chato Romero MD LAB BLOOD ORDERABLES Final Resu lt [facility] [address] [place] [address], * Comprehensive metabolic panel (04/17/2025 10:35 AM EDT) Sodium 136 133 - 145 mmol/L LAB CHEMISTRY METHOD 04/17/2025 3:12 PM EDT [facility] Potassium 4.7 3.5 - 5.5 mmol/L LAB CHEMISTRY METHOD 04/17/2025 3:12 PM T [facility] Chloride 102 96 - 110 mmol/L LAB CHEMISTRY METHOD 04/17/2025 3:12 PM [facility] CO2 26 21 - 32 mmol/L LAB CHEMISTRY METHOD 04/17/2025 3:12 PM [facility] Anion Gap 8 3 - 11 LAB CHEMISTRY METHOD 04/17/2025 3:12 PM [facility] Glucose 88 70 - 100 mg/dL LAB CHEMISTRY METHOD 04/17/2025 3:12 PM [facility] BUN 19 5 - 25 mg/dL LAB CHEMISTRY METHOD 04/17/2025 3:12 PM [facility] Creatinine 1.01 0.50 - 1.10 mg/dL LAB CHEMISTRY METHOD 04/17/2025 3:12 [facility] eGFR 60 >=60 mL/min/1. 73m2 LAB CHEMISTRY METHOD 04/17/2025 3:12 PM [facility] Comment:Calculation based on the Chronic Kidney Disease Epidemiology Collaboration (CKD-EPI) equation refit without adjustment for race. BUN/Creatinine Ratio 18.8 LAB CHEMISTRY METHOD 04/17/2025 3:12 PM [facility] Calcium 10.0 8.5 - 10.5 mg/dL LAB CHEMISTRY METHOD 04/17/2025 3:12 PM [facility] AST (SGOT) 21 10 - 42 unit/L LAB CHEMISTRY METHOD 04/17/2025 3:12 PM EDT [facility] ALT (SGPT) 39 10 - 60 unit/L LAB CHEMISTRY METHOD 04/17/2025 3:12 PM EDT [facility] Alkaline Phosphatase 81 42 - 121 unit/L LAB CHEMISTRY METHOD 04/17/2025 3:12 PM EDT [facility] Total Protein 6.7 6.0 - 8.0 g/dL LAB CHEMISTRY METHOD 04/17/2025 3:12 PM EDT [facility] Albumin 3.7 3.2 - 5.0 g/dL LAB CHEMISTRY METHOD 04/17/2025 3:12 PM EDT [facility] Total Bilirubin 0.4 0.0 - 1.4 mg/dL LAB CHEMISTRY METHOD 04/17/2025 3:12 PM EDT [facility] Blood Venous blood specimen / Unknown Venipuncture / Unknown 04/17/2025 10:35 AM EDT 04/17/2025 10:35 AM EDT us Chato Romero MD LAB BLOOD ORDERABLES Final Resu lt [facility] [address] [place] [address], * Pulmonary function testing: Carbon Monoxide Diffusing [...] indication for supplemental Oxygen for activity. Patricia Daiz MD us Hilda Arjun ROLLING MACHINE OPERATOR AUTOMATIC PFT ORDERABLES Final R esult * SCREENING MAMMOGRAPHY BI 2-VIEW BREAST INC [...] evidence of malignancy. BI-RADS 1 - negative [facility] [address] [place] [id number] Procedure Note Lucinda Carroll MD - 04/10/2024 [...] evidence of malignancy. BI-RADS 1 - negative [address] [place], [place] [id number] Result [facility] Chato Romero MD IMG XR PROCEDURES Final Result * Diabetes Foot Exam (01/24/2024) [facility] Diabetes: Annual Foot Exam Abstracted Result [facility] HEALTH MAINTENANCE Final Result * Diabetes Eye Exam (01/24/2024) [facility] Diabetes: Annual Retina Eye Exam Abstracted Result [facility] HEALTH MAINTENANCE Final Result * Depression Screening (12/29/2023) [facility] Depression Screening Abstracted Result [facility] HEALTH MAINTENANCE Final Result * Colonoscopy (08/22/2023) [facility] Colonoscopy No interpreta tion,abstr acted Anatomical Region Laterality Modality Other Result [facility] HEALTH MAINTENANCE Final Result * Falls Risk Assessment (07/20/2023) [facility] Falls Risk Assessment Abstracted Result [facility] HEALTH MAINTENANCE Final Result * DXA [...] (World Health Organization Fracture Risk Assessment) [facility] Department of Internal Medicine recommends using [...] alternative screening schedule based on arjun Espinal., BANNER July 14, 2011 for patients with osteopenia [...] (World Health Organization Fracture Risk Assessment) [facility] Department of Internal Medicine recommendsusing National [...] Final Result * Hepatitis C Screening (01/08/2019) [facility] Hepatitis C Screening Abstracted Historical Provider MD HEALTH MAINTENANCE Final Result from Last 3 Months or Most Recently Relevant to Health Maintenance Insurance MEDICARE [place]ICAID [place] Care Teams Patient Companion Relationship Specialty Start Date End Date Chato Romero MD [address] [place] [address] PCP - General Internal Medicine 04/13/21
--- OUTSIDE RECORDS SUMMARY | 2025-05-21 17:34 | XMS_ITS ---
Author Organization [facility] [address] [place] [address] Address [address] [place] [address] Phone Care Team Providers Care Gas Operator Name Role Phone Chato Romero MD Primary Care Provider [phone] Community Health Worker Program Status:Closed (Closed) Start date:02/18/2025 Enrollment date:02/20/2025 Enrollment reason:Referred from clinic End date:05/21/2025 Close reason:Completed program Current support & services provided:Adult Related service episodes:[facility] - Transportation (Closed) Overview Community Health Worker Program Case Team Name Relationship Phone Darrel Bernstein(Responsible Staff) Community Health Worker Continued Care and Services Coordination
--- OUTSIDE RECORDS SUMMARY | 2025-05-21 17:34 | XMS_ITS | Encounter Summary ---
Author Organization [facility] Address [address] [place] [address] Care Team Providers Care Senior Technical Recruiter Name Role Phone Chato Romero MD Primary Care Provider Reason for Visit * Reason Onset Date Comments durable medical equipment 05/15/2025 Encounter Details Date Type Department Care Team (Late st Contact Info) Description 05/15/2025 Telephone Pulmonology - [place] [address] [facility] [address] [place] [address] Hilda Díaz NP [address] [place] [phone] Social History Tobacco Use Types Packs/Day Years [...] of Assessment Author No 11/30/2024 9:02 PM EDPatrick Bustamante RN * Do you have serious difficulty walking or climbing stairs? Answer Date of Assessment Author Yes 11/30/2024 9:02 PM Patrick Oden RN * Do you have serious difficulty dressing or bathing? Answer Date of Assessment Author No 11/30/2024 9:02 PM Partick Oden RN * Because of a physical, [...] documented in this encounter Progress Notes * Hilda Díaz, LOUISE - 05/16/2025 12:06 PM EST Patient is not seeing us for sleep apnea and I did not send CPAP order for her. They probably receive from Briseida from Dr. Kent. I did call them to notify but they transfer me to [facility] who will[facility] to [facility]. * Berna Barahona MA - 05/16/2025 10:22 AM EST Printed for review There is no sleep study done in 03/2025 * Reggie Vega - 05/15/2025 3:53 PM EST Fax received from [facility] requesting Sleep Study documentation. Forms attached to encounter. documented in this encounter Plan of Treatment Upcoming Encounters Date Type Department Care Team (Late st Contact Info) Description 08/07/2025 1:00 PM EST Office Visit Pulmonology - [place] [address] [place] [phone] Hilda Díaz NP [address] [place] [address] 08/19/2025 3:45 PM EST Office Visit Adult Medicine [address] [phone] Chato Romero MD [address] [place] [address] documented as of this encounter Goals Goal Patient Goal Type Associated Problems Recent Progress Patient-Stated? Author <enter goal here> General Yes Sridevi Mims, NEPTALI documented as of this encounter Visit Diagnoses Not on filedocumented in this encounter Care Teams Senior Technical Recruiter Relationship Specialty Start Date End Date Chato Romero MD [address] [place] [address] PCP - General Internal Medicine 04/13/21 documented as of this encounter
--- OUTSIDE RECORDS SUMMARY | 2025-05-21 17:34 | XMS_ITS ---
Author Organization [facility] [address] [place] [address] Address [address] [place] [address] Phone Care Team Providers Care Car Wash Manager Name Role Phone Chato Romero MD Primary Care Provider [phone] [facility] - Transportation Status:Closed (Closed) Start date:02/20/2025 Enrollment date:02/20/2025 Enrollment reason:Referred by Care Team End date:05/21/2025 Close reason:Patient Achieved Goals Related social drivers of health:Transportation Related program episode:Community Health Worker Program (Closed) Overview Community Health Worker Program - Transportation Service Episode Case Team Name Relationship Phone Darrel Bernstein(Responsible Staff) Community Health Worker Continued Care and Services Coordination
--- OUTSIDE RECORDS SUMMARY | 2025-05-21 17:34 | XMS_ITS | Encounter Summary ---
Author Organization [facility] Address [address] [place] [address] Care Team Providers Care Radiator Repairer Name Role Phone Chato Romero MD Primary Care Provider [phone] Reason for Visit * Reason Onset Date Comments Med Refill 04/30/2025 Encounter Details Date Type Department Care Team (Late st Contact Info) Description 04/30/2025 Telephone Adult Medicine [address] [phone] Chato Romero MD [address] [place] [address] Social History Tobacco Use Types Packs/Day Years [...] Patrick Oden RN documented in this encounter Ordered Prescriptions Prescription Sig Dispense Quantity Refills Last Filled Start Date End Date diclofenac (VOLTAREN) 1 % topical gel Apply 4 g topically 4 (four) times a day. APPLY 4 GRAMS TOPICALLY TO THE AFFECTED AREA FOUR TIMES DAILY 300 g 1 05/20/2025 documented in this encounter Progress Notes * Chato Romero MD - 05/20/2025 2:53 PM ESTAddended by: CHATO ROMERO on: 05/20/2025 02:53 PM Modules accepted: Orders * Chato Romero MD - 05/20/2025 2:52 PM EST 90 day supply sent to the patient's pharmacy * Francisca Pop MA - 05/20/2025 2:00 PM EST Pls advise - thank you * Ronit Abhishek - 04/30/2025 11:53 AM EST Refills not on Current Medication List Patient would like script to be: E-PRESCRIBED/FAXED TO PHARMACY BY THE END OF THE DAY WHEN WAS THE PATIENT'S LAST APPOINTMENT IN ADULT MEDICINE? 04/17/25 WHEN WAS THE LAST TIME THE PATIENT SAW THEIR PCP? Same as above Does patient have an upcoming appointment? Yes 08/19/25 (THE MEDICATION REQUESTED IS NOT ON THE MED LIST ABOVE) All of the medications requested were on the CURRENT MEDS list PREFERRED PHARMACY: [id number] - [place] - [address] [facility] [address] [place] [address] Med name: Diclofenac topical gel 1% Dosage: 1% # of tablets: none Instructions: apply 4g topically 4x a day. Apply 4g topically to the affected area 4x daily Patient wants: 90-day supply Is this a mail order prescription request?: no Did you check the Pharmacy information above?: yes Patients current insurance carrier is: Payor: MEDICARE / Plan: MEDICARE PART A & B / Product Type: Medicare / Insurance ID #: @[email or web address]@ documented in this encounter Plan of Treatment Upcoming Encounters Date Type Department Care Team (Late st Contact Info) Description 08/07/2025 1:00 PM EST Office Visit Pulmonology - [place] [address] [facility] [address] [place] [address] Hilda Díaz, LOUISE [address] [place] [address] 08/19/2025 3:45 PM EST Office Visit Adult [address] [phone] Chato Romero MD [address] [place] [address] documented as of this encounter Goals Goal Patient Goal Type Associated Problems Recent Progress Patient-Stated? Author <enter goal here> General Yes Sridevi Mims, RN documented as of this encounter Visit Diagnoses Not on filedocumented in this encounter Discontinued Medications Medication Sig Discontinue Reason Start Date End Da te diclofenac (VOLTAREN) 1 % topical gel Apply 4 g topically 4 (four) times a day. APPLY 4 GRAMS TOPICALLY TO THE AFFECTED AREA FOUR TIMES DAILY Reorder 07/31/2024 05/20/2025 documented as of this encounter Care Teams Radiator Repairer Relationship Specialty Start Date End Date Chato Romero MD [address] [place] [address] PCP - General Internal Medicine 04/13/21 documented as of this encounter
== END 2025-05-21 15:28 | disposition home or self-care (01) ==
LOC: HO.HSMS 14:57
PROVIDERS: PCP Internal Medicine; Visit Provider Psychiatry & Neurology Neurology
DX: R25.1 Tremor, unspecified (principal); G47.33 Obstructive sleep apnea (adult) (pediatric); R41.3 Other amnesia
CPT/HCPCS: 99214; G2211

== ENCOUNTER → 2025-05-21 14:57 | Outpatient (BNVA) | payer MEDICARE, MEDICAID, SELFPAY | PROVIDERS: PCP Internal Medicine; Visit Provider Psychiatry & Neurology Neurology | DX: R25.1 Tremor, unspecified (principal); R41.3 Other amnesia; G47.33 Obstructive sleep apnea (adult) (pediatric) | CPT/HCPCS: 99212 ==